=== PATIENT | female | born 1980 | race Caucasian/White ===

== ENCOUNTER 2016-08-27 22:31 | Emergency (ER) | payer OTHER ==
[2016-08-27 22:38] VITALS: BP 114/75; PULSE 102; RESP 18; TEMP 97.6
[2016-08-27] MEDS ORDERED: KETOROLAC 60 MG/2 ML VIAL IM STA (22:45)
--- NOTE | 2016-08-27 22:48 | ED ---
General Adult HPI - General Chief complaint: Fall Stated complaint: fall Time Seen by Provider: 08/27/16 22:35 Source: patient, RN notes reviewed Mode of arrival: ambulatory Limitations: no limitations - History of Present Illness Initial comments: This is a 36-year-old female who comes in the ER stating that she tripped on the sidewalk hurt both her knees both elbows and her lower back. Patient denies any head injury. Patient denies any neck injury. Patient denies numbness weakness. Patient denies any loss of consciousness. Patient states she is not having any symptoms prior to tripping. Patient states she is able to move both of her elbows they just hurt a little bit where they hit the ground. Patient states she is able to move both knees and again they just hurt where the ground. Patient denies any hip pain. Patient denies any chest pain or abdominal pain. Patient asked pain is in the lower region. Patient states she was able to ambulate although at home and ambulate into the emergency department. - Related Data Home Medications Medication Instructions Recorded Confirmed traZODone HCL [Desyrel] 25 mg PO HS 03/03/16 08/27/16 Amitriptyline HCl [Elavil] 30 mg PO HS 08/27/16 08/27/16 DULoxetine HCL [Cymbalta] 60 mg PO HS 08/27/16 08/27/16 Thyroid,Pork [[place] Thyroid] 60 mg PO HS 08/27/16 08/27/16 Topiramate [Topamax] 25 mg PO TID 08/27/16 08/27/16 Allergies Allergy/AdvReac Type Severity Reaction Status Date / Time baclofen Allergy STOMACH Verified 08/27/16 22:58 PAIN chicken derived Allergy Anaphylaxis Verified 08/27/16 22:38 zonisamide [From Zonegran] Allergy Confusion Verified 08/27/16 22:38 Review of Systems ROS Statement: Those systems with pertinent positive or pertinent negative responses have been documented in the HPI. ROS Other: All systems not noted in ROS Statement are negative. Past Medical History Past Medical History: Fibromyalgia, GERD/Reflux, Hearing Disorder / Deafness, Thyroid Disorder Additional Past Medical History / Comment(s): hypotension, knee pain, MIGRAINES History of Any Multi-Drug Resistant Organisms: None Reported Past Surgical History: Hysterectomy, Orthopedic Surgery, Tubal Ligation Past Psychological History: Anxiety, Bipolar, Depression Smoking Status: Never smoker Past Alcohol Use History: None Reported Past Drug Use History: None Reported General Exam - General Exam Comments Initial Comments: GENERAL: Patient is well-developed and well-nourished. Patient is nontoxic and well- hydrated and is in mild distress. ENT: Neck is soft and supple. No significant lymphadenopathy is noted. Oropharynx is clear. Moist mucous membranes. Neck has full range of motion without eliciting any pain. EYES: The sclera were anicteric and conjunctiva were pink and moist. Extraocular movements were intact and pupils were equal round and reactive to light. Eyelids were unremarkable. PULMONARY: Unlabored respirations. Good breath sounds bilaterally. No audible rales rhonchi or wheezing was noted. CARDIOVASCULAR: There is a regular rate and rhythm without any murmurs gallops or rubs. ABDOMEN: Soft and nontender with normal bowel sounds. No palpable organomegaly was noted. There is no palpable pulsatile mass. SKIN: Patient has skin abrasions that are very superficial on both elbows and both knees. NEUROLOGIC: Patient is alert and oriented x3. Cranial nerves II through XII are grossly intact. Motor and sensory are also intact. Normal speech, volume and content. Symmetrical smile. MUSCULOSKELETAL: Normal extremities with adequate strength and full range of motion. Patient's lower back is mildly tender just lateral to the midline. PSYCHIATRIC: Normal psychiatric evaluation. Limitations: no limitations Course Vital Signs 08/27/16 22:36 Temperature 97.6 F Pulse Rate 102 H Respiratory 18 Rate Blood Pressure 114/75 O2 Sat by Pulse 98 Oximetry Medical Decision Making - Medical Decision Making Lumbosacral spine is normal. Disposition Clinical Impression: Multiple contusions, Lumbosacral strain Disposition: HOME SELF-CARE Condition: Good Instructions: Acute Low Back Pain (ED) Additional Instructions: Patient should take Motrin or Aleve for pain. Referrals: Zachariah Ruano DO [Primary Care Provider] - 1-2 days Time of Disposition: 23:05
--- NOTE | 2016-08-27 23:48 | XR ---
EXAMINATION TYPE: XR lumbosacral spine min 4V DATE OF EXAM: 08/27/2016 11:03 PM CLINICAL HISTORY: Lower back pain history of fall tonight history of DDD. TECHNIQUE: Frontal, lateral, and oblique images of the lumbar spine are obtained. COMPARISON: 04/27/2016 FINDINGS: There is minor dextroscoliosis in the lumbar spine. The alignment of vertebral bodies and body heights and disc spaces are grossly normal. Minor wedge co mpression deformity of T12 vertebral body is most likely old. No definite acute fracture is noted in the lumbar spine. Minor multilevel degenerative changes are suggested in the lumbar spine with endpla te spondylosis. The overlying soft tissue appears unremarkable. Mild facet joint arthrosis is suggest ed. IMPRESSION: 1. No acute fracture in the lumbar spine. 2. Minor degenerative changes. 3. No significant interval change.
== END 2016-08-27 23:15 | disposition home or self-care (01) ==
LOC: EC 22:31
DX: S39.012A Strain of muscle, fascia and tendon of lower back, initial encounter (principal); T14.8 Other injury of unspecified body region; M25.562 Pain in left knee; M25.561 Pain in right knee; M25.522 Pain in left elbow; M25.521 Pain in right elbow; W01.0XXA Fall on same level from slipping, tripping and stumbling without subsequent striking against object, initial encounter; Y92.480 Sidewalk as the place of occurrence of the external cause; E07.9 Disorder of thyroid, unspecified; M79.7 Fibromyalgia; G43.909 Migraine, unspecified, not intractable, without status migrainosus; F31.9 Bipolar disorder, unspecified; F41.9 Anxiety disorder, unspecified; Z79.899 Other long term (current) drug therapy; Z88.8 Allergy status to other drugs, medicaments and biological substances
CPT/HCPCS: 72110; 99283; 96372; J1885

== ENCOUNTER → 2016-09-01 | Outpatient (CLI) | payer OTHER ==
--- NOTE | 2016-09-02 09:02 | XR ---
EXAMINATION TYPE: XR mandible limited <4V DATE OF EXAM: 09/02/2016 6:34 AM COMPARISON: NONE HISTORY: Jaw pain TECHNIQUE: 4 views of the mandible are submitted. FINDINGS: Osseous structures are grossly intact. No acute displaced fracture seen. Limited evaluation of the TMJ. Visualized calvarium intact. IMPRESSION: 1. No Definite acute process. If symptoms persist follow-up CT scan recommended.
== END | disposition home or self-care (01) ==
LOC: RADXRYALE 14:25
PROVIDERS: ATTEND Physician Assistant Medical
DX: R68.84 Jaw pain (principal)
CPT/HCPCS: 70100

== ENCOUNTER 2016-11-14 02:55 | Emergency (ER) | payer OTHER ==
[2016-11-14 03:04] VITALS: RESP 18; TEMP 98
[2016-11-14] MEDS ORDERED: diphenhydrAMINE 50 MG/ML 1 ML VIAL IVP STA (03:22)
[2016-11-14] MEDS ORDERED: SODIUM CHLORIDE 0.9% 1,000 ML IV ONE (03:22)
[2016-11-14] MEDS ORDERED: METOCLOPRAMIDE 5 MG/ML 2 ML VIAL IVP STA ×2 (03:22→05:33)
[2016-11-14] MEDS ORDERED: KETOROLAC 30 MG/ML 1 ML VIAL IVP STA ×2 (03:23→04:47)
--- NOTE | 2016-11-14 03:52 | ED ---
Headache HPI - General Source: RN notes reviewed Mode of arrival: ambulatory Limitations: no limitations <Radha Abbott - Last Filed: 11/14/16 04:47> <Angus Lamb - Last Filed: 11/14/16 06:30> - General Chief Complaint: Headache Stated Complaint: migraine Time Seen by Provider: 11/14/16 03:07 - History of Present Illness Initial Comments: Patient is a 36-year-old female presents emergency room for evaluation of migraine headache. Patient states she has a history of migraine headaches. Patient states she has chronic neck and back pain. Patient states over the past 3 days she has been taking ibuprofen, Topamax, Tylenol, caffeine. Patient states these are not relieving her symptoms. Patient states she still continuing to have a migraine headache. Patient denies changes in vision. Patient denies ear pain or ringing in her years. Patient does admit to photophobia and phonophobia. Patient denies worsening neck pain. Patient denies neck stiffness. Patient denies fevers. Patient does states she is nauseous. Patient denies any numbness or tingling in her fingers and toes. Patient states this feels like her normal migraines. (Radha Abbott) - Related Data Home Medications Medication Instructions Recorded Confirmed traZODone HCL [Desyrel] 25 mg PO HS 03/03/16 11/14/16 Amitriptyline HCl [Elavil] 30 mg PO HS 08/27/16 11/14/16 DULoxetine HCL [Cymbalta] 60 mg PO HS 08/27/16 11/14/16 Thyroid,Pork [[place] Thyroid] 60 mg PO HS 08/27/16 11/14/16 Topiramate [Topamax] 25 mg PO TID 08/27/16 11/14/16 Allergies Allergy/AdvReac Type Severity Reaction Status Date / Time baclofen Allergy STOMACH Verified 11/14/16 03:04 PAIN chicken derived Allergy Anaphylaxis Verified 11/14/16 03:04 zonisamide [From Zonegran] Allergy Confusion Verified 11/14/16 03:04 Review of Systems ROS Other: All systems not noted in ROS Statement are negative. <Radha Abbott - Last Filed: 11/14/16 04:47> ROS Other: All systems not noted in ROS Statement are negative. <Angus Lamb - Last Filed: 11/14/16 06:30> ROS Statement: Those systems with pertinent positive or pertinent negative responses have been documented in the HPI. Past Medical History Past Medical History: Fibromyalgia, GERD/Reflux, Hearing Disorder / Deafness, Thyroid Disorder Additional Past Medical History / Comment(s): hypotension, knee pain, MIGRAINES History of Any Multi-Drug Resistant Organisms: None Reported Past Surgical History: Hysterectomy, Orthopedic Surgery, Tubal Ligation Past Psychological History: Anxiety, Bipolar, Depression Smoking Status: Never smoker Past Alcohol Use History: None Reported Past Drug Use History: None Reported <Radha Abbott - Last Filed: 11/14/16 04:47> General Exam Limitations: no limitations General appearance: alert, in no apparent distress Head exam: Present: atraumatic, normocephalic, normal inspection Eye exam: Present: normal appearance, PERRL, EOMI Pupils: Present: normal accommodation ENT exam: Present: normal exam Neck exam: Present: normal inspection Respiratory exam: Absent: respiratory distress Cardiovascular Exam: Present: regular rate, normal rhythm, normal heart sounds Extremities exam: Present: normal inspection Back exam: Present: normal inspection Neurological exam: Present: alert, oriented X3, CN II-XII intact, normal gait Psychiatric exam: Present: normal affect, normal mood Skin exam: Present: warm, dry, intact, normal color. Absent: rash <Radha Abbott - Last Filed: 11/14/16 04:47> <Angus Lamb - Last Filed: 11/14/16 06:30> - General Exam Comments Initial Comments: Laying in exam room, all lights off, sunglasses on, no acute distress. (Radha Abbott) Course <Radha Abbott - Last Filed: 11/14/16 04:47> <Angus Lamb - Last Filed: 11/14/16 06:30> Vital Signs 11/14/16 11/14/16 03:01 05:42 Temperature 98.0 F Pulse Rate 91 67 Respiratory 18 18 Rate Blood Pressure 113/78 108/58 O2 Sat by Pulse 95 98 Oximetry - Reevaluation(s) Reevaluation #1: 11/14/16 05:34 Patient states her pain is down to about a 4/10 in severity (Angus Lamb) Reevaluation #2: 11/14/16 06:29 The patient is finally feeling much improved she will be discharged she is waiting for her to pick her up after he gets out of work at 7:30. (Angus Lamb) Medical Decision Making <Radha Abbott - Last Filed: 11/14/16 04:47> <Angus Lamb - Last Filed: 11/14/16 06:30> - Medical Decision Making Patient is a 36-year-old female presents emergency room. Elevation of migraine headaches. Patient has a history of migraine headaches. Patient given fluids, Toradol, Reglan and Benadryl. Patient reevaluated after 30 minutes and still complaining of mild headache. Patient given another dose of Toradol. Case discussed and passed on to Dr. Lamb at 4:45 AM. (Radha Abbott) Disposition <Radha Abbott - Last Filed: 11/14/16 04:47> <Angus Lamb - Last Filed: 11/14/16 06:30> Clinical Impression: Migraine Disposition: HOME SELF-CARE Condition: Good Instructions: Acute Headache (ED)
[2016-11-14] MEDS ORDERED: HYDROmorphone 1 MG/ML 1 ML SYRINGE IVP STA (05:33)
[2016-11-14 07:57] VITALS: BP 110/65; PULSE 79
== END 2016-11-14 07:55 | disposition home or self-care (01) ==
LOC: EC 02:55
DX: G43.909 Migraine, unspecified, not intractable, without status migrainosus (principal); E07.9 Disorder of thyroid, unspecified; F31.9 Bipolar disorder, unspecified; F41.9 Anxiety disorder, unspecified; H91.90 Unspecified hearing loss, unspecified ear; Z79.899 Other long term (current) drug therapy; Z91.018 Allergy to other foods; Z88.8 Allergy status to other drugs, medicaments and biological substances
CPT/HCPCS: 99283; 96374; 96375 ×3; 96376 ×2; 96361; J1200; J2765; J1885; J1170

== ENCOUNTER 2016-11-23 18:01 | Emergency (ER) | payer OTHER ==
[2016-11-23] MEDS ORDERED: diphenhydrAMINE 50 MG CAP PO STA (18:16)
[2016-11-23] MEDS ORDERED: PROCHLORPERAZINE 5 MG TAB PO STA (18:16)
[2016-11-23] MEDS ORDERED: HYDROmorphone 2 MG/ML 1 ML SYRINGE IM STA ×2 (18:16→19:57)
[2016-11-23] MEDS ORDERED: IBUPROFEN 800 MG TAB PO STA (18:16)
--- NOTE | 2016-11-23 18:30 | ED ---
General Adult HPI - General Chief complaint: Headache Stated complaint: migraine Time Seen by Provider: 11/23/16 18:13 Source: patient, RN notes reviewed, old records reviewed Mode of arrival: wheelchair Limitations: no limitations - History of Present Illness Initial comments: This is a 36-year-old female here for evaluation of headache and chronic migraine. Patient has history of headache and migraine. Patient states his headache is not improving at home despite taking her headache medications. No neurological complaints. Headache is her fzx-bo-[id number]-mill migraine headache. No nausea or vomiting. No fevers. No trauma - Related Data Home Medications Medication Instructions Recorded Confirmed traZODone HCL [Desyrel] 25 mg PO HS 03/03/16 11/23/16 Amitriptyline HCl [Elavil] 10 mg PO TID 08/27/16 11/23/16 DULoxetine HCL [Cymbalta] 60 mg PO DAILY 08/27/16 11/23/16 Thyroid,Pork [[place] Thyroid] 60 mg PO DAILY 08/27/16 11/23/16 Topiramate [Topamax] 25 mg PO TID 08/27/16 11/23/16 Aspirin/Acetaminophen/Caffeine 1 - 2 tab PO DAILY PRN 11/23/16 11/23/16 [Excedrin Migraine Caplet] Melatonin 3 mg PO HS PRN 11/23/16 11/23/16 Multivitamins, Thera [Multivitamin 1 tab PO DAILY 11/23/16 11/23/16 (formulary)] Allergies Allergy/AdvReac Type Severity Reaction Status Date / Time baclofen Allergy STOMACH Verified 11/23/16 18:17 PAIN chicken derived Allergy Anaphylaxis Verified 11/23/16 18:17 zonisamide [From Zonegran] Allergy Confusion Verified 11/23/16 18:17 Review of Systems ROS Statement: Those systems with pertinent positive or pertinent negative responses have been documented in the HPI. ROS Other: All systems not noted in ROS Statement are negative. Past Medical History Past Medical History: Fibromyalgia, Hearing Disorder / Deafness, Thyroid Disorder Additional Past Medical History / Comment(s): hypotension, knee pain, MIGRAINES History of Any Multi-Drug Resistant Organisms: None Reported Past Surgical History: Hysterectomy, Orthopedic Surgery, Tubal Ligation Past Psychological History: Anxiety, Bipolar, Depression Smoking Status: Never smoker Past Alcohol Use History: None Reported Past Drug Use History: None Reported General Exam Limitations: no limitations General appearance: alert, in no apparent distress Head exam: Present: atraumatic, normocephalic, normal inspection Eye exam: Present: normal appearance, PERRL, EOMI. Absent: scleral icterus, conjunctival injection, periorbital swelling ENT exam: Present: normal exam, mucous membranes moist Neck exam: Present: normal inspection. Absent: tenderness, meningismus, lymphadenopathy Respiratory exam: Present: normal lung sounds bilaterally. Absent: respiratory distress, wheezes, rales, rhonchi, stridor Cardiovascular Exam: Present: regular rate, normal rhythm, normal heart sounds. Absent: systolic murmur, diastolic murmur, rubs, gallop, clicks GI/Abdominal exam: Present: soft, normal bowel sounds. Absent: distended, tenderness, guarding, rebound, rigid Extremities exam: Present: normal inspection, full ROM, normal capillary refill. Absent: tenderness, pedal edema, joint swelling, calf tenderness Back exam: Present: normal inspection Neurological exam: Present: alert, oriented X3, CN II-XII intact Psychiatric exam: Present: normal affect, normal mood Skin exam: Present: warm, dry, intact, normal color. Absent: rash Course Vital Signs 11/23/16 11/23/16 18:05 20:20 Temperature 99.0 F 98.0 F Pulse Rate 79 91 Respiratory 16 18 Rate Blood Pressure 131/60 121/84 O2 Sat by Pulse 96 96 Oximetry Medical Decision Making - Medical Decision Making 36 female here for evaluation of chronic minor, headache and this time is resolved and patient is okay for discharge home Disposition Clinical Impression: Migraine Disposition: HOME SELF-CARE Condition: Good Instructions: Acute Headache (ED) Referrals: Zachariah Ruano DO [Primary Care Provider] - 1-2 days
[2016-11-23 20:21] VITALS: BP 121/84; PULSE 91; RESP 18; TEMP 98
== END 2016-11-23 20:45 | disposition home or self-care (01) ==
LOC: EC 18:01
DX: G43.909 Migraine, unspecified, not intractable, without status migrainosus (principal); Z79.899 Other long term (current) drug therapy; M79.7 Fibromyalgia; H91.90 Unspecified hearing loss, unspecified ear; E07.9 Disorder of thyroid, unspecified; I95.9 Hypotension, unspecified; F32.9 Major depressive disorder, single episode, unspecified; F41.9 Anxiety disorder, unspecified; Z88.1 Allergy status to other antibiotic agents; Z91.018 Allergy to other foods; Z88.8 Allergy status to other drugs, medicaments and biological substances
CPT/HCPCS: 96372; 99284; S0183; J1170

== ENCOUNTER 2016-11-27 10:59 | Emergency (ER) | payer OTHER ==
[2016-11-27] MEDS ORDERED: METOCLOPRAMIDE 5 MG/ML 2 ML VIAL IM STA (11:39)
[2016-11-27] MEDS ORDERED: KETOROLAC 60 MG/2 ML VIAL IM STA (11:39)
[2016-11-27] MEDS ORDERED: MORPHINE SULFATE 10 MG/ML SYRINGE IM STA (11:47)
--- NOTE | 2016-11-27 11:50 | ED ---
General Adult HPI - General Chief complaint: Headache Stated complaint: MIGRAINE Time Seen by Provider: 11/27/16 11:21 Source: patient, RN notes reviewed Mode of arrival: ambulatory Limitations: no limitations - History of Present Illness Initial comments: Patient is a pleasant 36-year-old female presenting to the emergency department complaining of headache. Symptoms started yesterday and have progressively worsened since that time. Discomfort is turned to become severe rated 8 or 9/ 10. Patient does have similar headaches once or twice per week. Patient has had similar headaches since age 15. Patient usually worse in the spring time and patient does question if she has an ALLERGY component. Patient does take Flonase. Patient did receive a Toradol injection yesterday from her primary care physician without much improvement of symptoms. No confusion. No weakness. Patient does have nausea and photophobia. Headache is frontal and similar to previous headaches. Patient has had at least one computed tomography scan previously. Patient is unclear whether or not she may have had MRIs. - Related Data Home Medications Medication Instructions Recorded Confirmed traZODone HCL [Desyrel] 25 mg PO HS 03/03/16 11/23/16 Amitriptyline HCl [Elavil] 10 mg PO TID 08/27/16 11/23/16 DULoxetine HCL [Cymbalta] 60 mg PO DAILY 08/27/16 11/23/16 Thyroid,Pork [[place] Thyroid] 60 mg PO DAILY 08/27/16 11/23/16 Topiramate [Topamax] 25 mg PO TID 08/27/16 11/23/16 Aspirin/Acetaminophen/Caffeine 1 - 2 tab PO DAILY PRN 11/23/16 11/23/16 [Excedrin Migraine Caplet] Melatonin 3 mg PO HS PRN 11/23/16 11/23/16 Multivitamins, Thera [Multivitamin 1 tab PO DAILY 11/23/16 11/23/16 (formulary)] Allergies Allergy/AdvReac Type Severity Reaction Status Date / Time baclofen Allergy STOMACH Verified 11/23/16 18:17 PAIN chicken derived Allergy Anaphylaxis Verified 11/23/16 18:17 zonisamide [From Zonegran] Allergy Confusion Verified 11/23/16 18:17 Review of Systems ROS Statement: Those systems with pertinent positive or pertinent negative responses have been documented in the HPI. ROS Other: All systems not noted in ROS Statement are negative. Constitutional: Denies: fever, chills Eyes: Denies: eye pain ENT: Denies: ear pain Respiratory: Denies: cough Cardiovascular: Denies: chest pain Endocrine: Denies: fatigue Gastrointestinal: Reports: nausea. Denies: abdominal pain Genitourinary: Denies: urgency Musculoskeletal: Denies: back pain Skin: Denies: rash Neurological: Reports: headache. Denies: weakness Past Medical History Past Medical History: Fibromyalgia, Hearing Disorder / Deafness, Thyroid Disorder Additional Past Medical History / Comment(s): hypotension, knee pain, MIGRAINES History of Any Multi-Drug Resistant Organisms: None Reported Past Surgical History: Hysterectomy, Orthopedic Surgery, Tubal Ligation Past Psychological History: Anxiety, Bipolar, Depression Smoking Status: Never smoker Past Alcohol Use History: None Reported Past Drug Use History: None Reported General Exam Limitations: no limitations General appearance: alert, in no apparent distress Head exam: Present: atraumatic Eye exam: Present: normal appearance, PERRL, EOMI. Absent: nystagmus ENT exam: Present: normal oropharynx Neck exam: Present: normal inspection. Absent: tenderness, meningismus Respiratory exam: Present: normal lung sounds bilaterally Cardiovascular Exam: Present: regular rate, normal rhythm GI/Abdominal exam: Present: soft. Absent: tenderness Extremities exam: Present: normal inspection Neurological exam: Present: alert Expanded Speech: Present: fluid speech Cranial nerves: EOM's Intact: Normal, Facial Sensation: Normal Sensory exam: Upper Extremity Light Touch: Normal, Lower Extremity Light Touch: Normal Motor strength exam: RUE: 5, LUE: 5, RLE: 5, LLE: 5 Eye Response: (4) open spontaneously Motor Response: (6) obeys commands Verbal Response: (5) oriented Psychiatric exam: Present: normal affect, normal mood Skin exam: Present: normal color Course Vital Signs 11/27/16 11:07 Temperature 98.4 F Pulse Rate 89 Respiratory 20 Rate Blood Pressure 116/88 O2 Sat by Pulse 97 Oximetry Disposition Clinical Impression: Headache Disposition: HOME SELF-CARE Condition: Stable Instructions: Acute Headache (ED) Additional Instructions: Please follow-up with your doctor in the next day or 2 for recheck. Return for fever, confusion, weakness, worsening or change in symptoms or other concerns. Referrals: Zachariah Ruano DO [Primary Care Provider] - 1-2 days Time of Disposition: :50
[2016-11-27 12:43] VITALS: BP 120/82; PULSE 87; RESP 18; TEMP 98
== END 2016-11-27 12:43 | disposition home or self-care (01) ==
LOC: EC 10:59
DX: R51 Headache (principal); R11.0 Nausea; H53.149 Visual discomfort, unspecified; M79.7 Fibromyalgia; F41.9 Anxiety disorder, unspecified; E07.9 Disorder of thyroid, unspecified; F32.9 Major depressive disorder, single episode, unspecified; Z79.899 Other long term (current) drug therapy; Z88.8 Allergy status to other drugs, medicaments and biological substances; Z91.09 Other allergy status, other than to drugs and biological substances; Z86.69 Personal history of other diseases of the nervous system and sense organs
CPT/HCPCS: 99283; 96372 ×3; J2765; J2270; J1885

== ENCOUNTER 2016-12-03 10:15 | Emergency (ER) | payer OTHER ==
[2016-12-03 10:41] VITALS: BP 132/80
[2016-12-03] MEDS ORDERED: KETOROLAC 60 MG/2 ML VIAL IM STA (11:10)
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
[2016-12-03 11:23] VITALS: PULSE 73; RESP 16; TEMP 98.2
== END 2016-12-03 11:26 | disposition home or self-care (01) ==
LOC: EC 10:15
DX: S30.0XXA Contusion of lower back and pelvis, initial encounter (principal); E03.9 Hypothyroidism, unspecified; F31.9 Bipolar disorder, unspecified; F41.9 Anxiety disorder, unspecified; Z86.69 Personal history of other diseases of the nervous system and sense organs; Z79.899 Other long term (current) drug therapy; Z91.018 Allergy to other foods; Z88.8 Allergy status to other drugs, medicaments and biological substances; W50.1XXA Accidental kick by another person, initial encounter
CPT/HCPCS: 99283; 96372; J1885

== ENCOUNTER 2017-01-22 18:16 | Emergency (ER) | payer OTHER ==
[2017-01-22 18:21] VITALS: TEMP 97.7
--- NOTE | 2017-01-22 19:26 | ED ---
Upper Extremity HPI - General Chief Complaint: Extremity Injury, Upper Stated Complaint: left wrist and elbow injury Time Seen by Provider: 01/22/17 18:37 Source: patient Mode of arrival: wheelchair Limitations: no limitations - History of Present Illness Initial Comments: Patient is a 36-year-old female with medical history significant for fibromyalgia presenting to the emergency department with complaints of left wrist pain. Patient states she was moving a mattress off a metal bed frame 3 days ago when she injured her left wrist on the bed frame. Patient is currently complaining of a 9 out of 10 pain, described as aching and sharp, relieved with rest, exacerbated with movement. A enriquez states that she has shooting pains radiating up her left forearm to elbow. Patient reports previous history of fracture to left wrist and dislocated humerus in the past. Patient states she's tried a splint and Adi wrap at home with minimal relief. Patient states she is taking prescription pain medications. MD Complaint: Injury to:: left, wrist Onset/Timin -: days(s) Other Injuries: none Place: home Severity scale (1-10): 9 Improves With: rest Worsens With: movement of extremity Context: direct blow (Patient states she injured her left wrist on a metal bed frame trying to pull off the mattress) Treatments Prior to Arrival: splint - Related Data Home Medications Medication Instructions Recorded Confirmed traZODone HCL [Desyrel] 25 mg PO HS 03/03/16 01/22/17 Amitriptyline HCl [Elavil] 30 mg PO HS 08/27/16 01/22/17 DULoxetine HCL [Cymbalta] 60 mg PO DAILY 08/27/16 01/22/17 Thyroid,Pork [[employer] Thyroid] 60 mg PO DAILY 08/27/16 01/22/17 Topiramate [Topamax] 25 mg PO TID 08/27/16 01/22/17 Aspirin/Acetaminophen/Caffeine 1 - 2 tab PO DAILY PRN 11/23/16 01/22/17 [Excedrin Migraine Caplet] Melatonin 3 mg PO HS PRN 11/23/16 01/22/17 Multivitamins, Thera [Multivitamin 1 tab PO DAILY 11/23/16 01/22/17 (formulary)] Celecoxib [Celecoxib] 200 mg PO DAILY 12/03/16 01/22/17 Allergies Allergy/AdvReac Type Severity Reaction Status Date / Time baclofen Allergy STOMACH Verified 01/22/17 18:57 PAIN chicken derived Allergy Anaphylaxis Verified 01/22/17 18:57 zonisamide [From Zonegran] Allergy Confusion Verified 01/22/17 18:57 Review of Systems ROS Statement: Those systems with pertinent positive or pertinent negative responses have been documented in the HPI. ROS Other: All systems not noted in ROS Statement are negative. Past Medical History Past Medical History: Fibromyalgia, Hearing Disorder / Deafness, Thyroid Disorder Additional Past Medical History / Comment(s): hypotension, knee pain, MIGRAINES History of Any Multi-Drug Resistant Organisms: None Reported Past Surgical History: Hysterectomy, Orthopedic Surgery, Tubal Ligation Past Psychological History: Anxiety, Depression Smoking Status: Never smoker Past Alcohol Use History: None Reported Past Drug Use History: None Reported General Exam Limitations: no limitations General appearance: alert, in no apparent distress Head exam: Present: atraumatic, normocephalic, normal inspection Eye exam: Present: normal appearance. Absent: scleral icterus, conjunctival injection, periorbital swelling, periorbital tenderness ENT exam: Present: normal exam, mucous membranes moist, normal external ear exam Neck exam: Present: normal inspection, full ROM. Absent: tenderness, lymphadenopathy Respiratory exam: Present: normal lung sounds bilaterally. Absent: respiratory distress, wheezes, rales, rhonchi, stridor Cardiovascular Exam: Present: regular rate, normal rhythm, tachycardia, normal heart sounds. Absent: systolic murmur GI/Abdominal exam: Present: soft, normal bowel sounds. Absent: tenderness Left Shoulder Exam: Present: normal inspection, full ROM. Absent: tenderness, swelling Upper Arm exam: Present: normal inspection, full ROM. Absent: tenderness, swelling Elbow exam: Present: normal inspection, full ROM. Absent: tenderness, swelling Forearm Wrist exam: Present: normal inspection, full ROM, tenderness ( Tenderness to dorsal aspect of left forearm over both radial and ulnar areas). Absent: swelling, ecchymosis, deformity, dislocation Hand Wrist exam: Present: full ROM, tenderness, ecchymosis (Ecchymosis to left wrist). Absent: swelling, deformity Neuro motor exam: Present: wrist extension intact, thumb opposition intact, thumb IP flexion intact, thumb adduction intact, fingers 2-5 abduction intact Neurosensory exam: Present: radial nerve intact, ulnar nerve intact, median nerve intact Vascular: Present: normal capillary refill, radial pulse, brachial pulse, ulnar pulse. Absent: vascular compromise Neurological exam: Present: alert, oriented X3, other (No focal deficits noted) Psychiatric exam: Present: normal affect, normal mood Course Vital Signs 01/22/17 18:18 Temperature 97.7 F Pulse Rate 104 H Respiratory 18 Rate Blood Pressure 119/72 O2 Sat by Pulse 99 Oximetry Medical Decision Making - Medical Decision Making Contusion of left wrist. X-ray of left wrist and left forearm with no evidence of fracture or dislocation. Patient instructed to continue Tylenol and Motrin for pain. Follow-up with primary care physician as directed. Patient instructed to follow-up with orthopedic service with continued persistent pain. Patient agrees to treatment plan. Discharge instructions and return parameters reviewed. - Radiology Data Radiology results: report reviewed X-ray left wrist: No fracture or dislocation. Bones and joints and soft tissues are unremarkable. X-ray left forearm: Bones and joints and soft tissues are unremarkable. No fracture or malalignment. Disposition Clinical Impression: Contusion of left wrist Disposition: HOME SELF-CARE Condition: Good Instructions: Contusion in Adults (ED) Additional Instructions: Continue Tylenol or Motrin for pain. May continue ice or warm heat for comfort. Follow-up with primary care physician as directed. If left wrist pain persists, follow-up with orthopedic service. Please return to the emergency department with any new or worsening symptoms. Referrals: Zachariah Ruano DO [Primary Care Provider] - 1-2 days Rito Reddy DO [Doctor of Osteopathic Medicine] - 1-2 days (Follow-up in 7-10 days if pain persists.) Time of Disposition: 20:44
--- NOTE | 2017-01-22 19:32 | XR ---
EXAMINATION TYPE: XR wrist complete LT 4V DATE OF EXAM: 01/22/2017 COMPARISON: NONE HISTORY: Pain after trauma TECHNIQUE: AP and lateral and AP oblique images plus a scaphoid view FINDINGS: There is no fracture or dislocation. The bones and joints and soft tissues are unremarkable . IMPRESSION: No acute process.
--- NOTE | 2017-01-22 20:27 | XR ---
EXAMINATION TYPE: XR forearm LT 2V DATE OF EXAM: 01/22/2017 COMPARISON: NONE HISTORY: Pain after trauma TECHNIQUE: AP and lateral FINDINGS: The bones and joints and soft tissues are unremarkable. There is no fracture or malalignmen t. Imaging obtained from the elbow to the wrist IMPRESSION: No acute process.
[2017-01-22 20:53] VITALS: BP 97/53; PULSE 68; RESP 16
== END 2017-01-22 20:53 | disposition home or self-care (01) ==
LOC: EC 18:16
DX: S60.212A Contusion of left wrist, initial encounter (principal); R00.0 Tachycardia, unspecified; M25.522 Pain in left elbow; M79.632 Pain in left forearm; E07.9 Disorder of thyroid, unspecified; F32.9 Major depressive disorder, single episode, unspecified; F41.9 Anxiety disorder, unspecified; Z79.1 Long term (current) use of non-steroidal anti-inflammatories (NSAID); Z79.899 Other long term (current) drug therapy; Z88.8 Allergy status to other drugs, medicaments and biological substances; Z91.018 Allergy to other foods; Z87.39 Personal history of other diseases of the musculoskeletal system and connective tissue; Z86.69 Personal history of other diseases of the nervous system and sense organs; W20.8XXA Other cause of strike by thrown, projected or falling object, initial encounter; Y93.89 Activity, other specified
CPT/HCPCS: 99283

== ENCOUNTER 2017-01-23 16:19 | Emergency (ER) | payer OTHER ==
[2017-01-23] MEDS ORDERED: DIPH,PERTUS(ACELL)TETVAC-LF 0.5 ML VIAL IM ONE (16:45)
--- NOTE | 2017-01-23 16:47 | ED ---
General Adult HPI - General Chief complaint: Fall Stated complaint: Fall Time Seen by Provider: 01/23/17 16:36 Source: patient, EMS, RN notes reviewed Mode of arrival: EMS Limitations: no limitations - History of Present Illness Initial comments: Patient is a pleasant 36-year-old female presenting to the emergency Department with left toe pain. Patient did have a trip and fall a couple hours ago. Patient has previously fallen in the same location. Patient also had a fall last week. Patient unclear when last tetanus was was. Patient complains of discomfort of the left distal toe. No other area of injury. No head injury or loss of consciousness. No neck or back pain. No abdominal pain. - Related Data Home Medications Medication Instructions Recorded Confirmed traZODone HCL [Desyrel] 25 mg PO HS 03/03/16 01/23/17 Amitriptyline HCl [Elavil] 30 mg PO HS 08/27/16 01/23/17 DULoxetine HCL [Cymbalta] 60 mg PO DAILY 08/27/16 01/23/17 Thyroid,Pork [[place] Thyroid] 60 mg PO DAILY 08/27/16 01/23/17 Topiramate [Topamax] 25 mg PO TID 08/27/16 01/23/17 Aspirin/Acetaminophen/Caffeine 1 - 2 tab PO DAILY PRN 11/23/16 01/23/17 [Excedrin Migraine Caplet] Melatonin 3 mg PO HS PRN 11/23/16 01/23/17 Multivitamins, Thera [Multivitamin 1 tab PO DAILY 11/23/16 01/23/17 (formulary)] Celecoxib [Celecoxib] 200 mg PO DAILY 12/03/16 01/23/17 Allergies Allergy/AdvReac Type Severity Reaction Status Date / Time baclofen Allergy STOMACH Verified 01/23/17 16:34 PAIN chicken derived Allergy Anaphylaxis Verified 01/23/17 16:34 zonisamide [From Zonegran] Allergy Confusion Verified 01/23/17 16:34 Review of Systems ROS Statement: Those systems with pertinent positive or pertinent negative responses have been documented in the HPI. ROS Other: All systems not noted in ROS Statement are negative. Constitutional: Denies: fever Eyes: Denies: eye pain ENT: Denies: ear pain Respiratory: Denies: cough Cardiovascular: Denies: chest pain Endocrine: Denies: fatigue Gastrointestinal: Denies: abdominal pain Genitourinary: Denies: dysuria Musculoskeletal: Denies: back pain Skin: Denies: rash Neurological: Denies: weakness Past Medical History Past Medical History: Fibromyalgia, Hearing Disorder / Deafness, Thyroid Disorder Additional Past Medical History / Comment(s): hypotension, knee pain, MIGRAINES History of Any Multi-Drug Resistant Organisms: None Reported Past Surgical History: Hysterectomy, Orthopedic Surgery, Tubal Ligation Past Psychological History: Anxiety, Depression Smoking Status: Never smoker Past Alcohol Use History: None Reported Past Drug Use History: None Reported General Exam Limitations: no limitations General appearance: alert, in no apparent distress Head exam: Present: atraumatic Eye exam: Present: normal appearance, PERRL ENT exam: Present: normal oropharynx Neck exam: Present: normal inspection. Absent: tenderness Respiratory exam: Present: normal lung sounds bilaterally Cardiovascular Exam: Present: regular rate, normal rhythm GI/Abdominal exam: Present: soft. Absent: tenderness Extremities exam: Present: tenderness (Left distal toe. Sensation is intact. Patient is able to move toe. Cap refill less than 2 seconds.) Neurological exam: Present: alert Psychiatric exam: Present: normal affect, normal mood Skin exam: Present: abrasion (Left hand) Course Vital Signs 01/23/17 16:20 Temperature 99 F Pulse Rate 53 L Respiratory 16 Rate Blood Pressure 116/66 O2 Sat by Pulse 100 Oximetry Medical Decision Making - Medical Decision Making Patient reexamined and updated. - Radiology Data Radiology results: image reviewed (Left foot x-ray shows no acute process) Disposition Clinical Impression: Toe injury Disposition: HOME SELF-CARE Condition: Stable Instructions: Foot Contusion (ED) Additional Instructions: Please follow-up with primary care physician next week. Ice to affected area. Used postoperative shoe. [id number] Motrin as needed. Return for increased pain, swelling, redness, fever, worsening symptoms or other concerns. Referrals: Zachariah Ruano DO [Primary Care Provider] - 1-2 days Time of Disposition: 17:29
--- NOTE | 2017-01-23 17:03 | XR ---
EXAMINATION TYPE: XR foot complete LT DATE OF EXAM: 01/23/2017 COMPARISON: NONE HISTORY: Pain fall TECHNIQUE: Three-view left foot FINDINGS: Mild hallux valgus deformity is present. Joint spaces are preserved. No acute fractures are evident. Soft tissues are normal. Follow-up exam can be performed 7-10 days from acute trauma for continued pain. IMPRESSION: 1. No acute osseous abnormality.
[2017-01-23 17:43] VITALS: BP 130/85; PULSE 87; RESP 18; TEMP 98.9
== END 2017-01-23 17:42 | disposition home or self-care (01) ==
LOC: EC 16:19
DX: S60.512A Abrasion of left hand, initial encounter (principal); S99.922A Unspecified injury of left foot, initial encounter; M79.7 Fibromyalgia; E07.9 Disorder of thyroid, unspecified; F32.9 Major depressive disorder, single episode, unspecified; F41.9 Anxiety disorder, unspecified; Z79.1 Long term (current) use of non-steroidal anti-inflammatories (NSAID); Z79.899 Other long term (current) drug therapy; Z88.8 Allergy status to other drugs, medicaments and biological substances; Z91.018 Allergy to other foods; Z87.39 Personal history of other diseases of the musculoskeletal system and connective tissue; Z86.69 Personal history of other diseases of the nervous system and sense organs; Z23 Encounter for immunization; W01.0XXA Fall on same level from slipping, tripping and stumbling without subsequent striking against object, initial encounter; Y93.02 Activity, running
CPT/HCPCS: 90471; 90715; 99284

== ENCOUNTER 2017-03-07 14:58 | Emergency (ER) | payer OTHER ==
--- NOTE | 2017-03-07 15:49 | ED ---
General Adult HPI - General Chief complaint: Recheck/Abnormal Lab/Rx Stated complaint: Swelling ankle/feet Time Seen by Provider: 03/07/17 15:25 Source: patient, RN notes reviewed Mode of arrival: wheelchair Limitations: no limitations - History of Present Illness Initial comments: Patient 37-year-old female who presents emergency room today with a chief complaint of bilateral leg swelling and also some swelling to her hands that she 's noticed over the last 3-4 days. Patient states she has been off some of her medications. She states she does not have insurance and is not taking her thyroid medication along with medication for fibromyalgia. She states that she has noticed some swelling over the last few days. She states otherwise she has been feeling well. States she has been more active lately as well. She denies any other complaints or associated symptoms. Patient denies any recent fever, chills, shortness of breath, chest pain, back pain, abdominal pain, nausea or vomiting, numbness or tingling, dysuria or hematuria, constipation or diarrhea, headaches or visual changes, or any other complaints. - Related Data Previous Rx's Medication Instructions Recorded Thyroid,Pork [[place] Thyroid] 60 mg PO DAILY #30 tab 03/07/17 Allergies Allergy/AdvReac Type Severity Reaction Status Date / Time baclofen Allergy STOMACH Verified 03/07/17 15:38 PAIN chicken derived Allergy Anaphylaxis Verified 03/07/17 15:38 zonisamide [From Zonegran] Allergy Confusion Verified 03/07/17 15:38 Review of Systems ROS Statement: Those systems with pertinent positive or pertinent negative responses have been documented in the HPI. ROS Other: All systems not noted in ROS Statement are negative. Past Medical History Past Medical History: Fibromyalgia, Hearing Disorder / Deafness, Thyroid Disorder Additional Past Medical History / Comment(s): knee pain, MIGRAINES back pain hypotension History of Any Multi-Drug Resistant Organisms: None Reported Past Surgical History: Hysterectomy, Orthopedic Surgery, Tubal Ligation Past Psychological History: Anxiety, Depression Smoking Status: Never smoker Past Alcohol Use History: None Reported Past Drug Use History: None Reported General Exam - General Exam Comments Initial Comments: General: The patient is awake and alert, in no distress, and does not appear acutely ill. Eye: Pupils are equal, round and reactive to light, extra-ocular movements are intact. No nystagmus. There is normal conjunctiva bilaterally. No signs of icterus. Ears, nose, mouth and throat: There are moist mucous membranes and no oral lesions. Neck: The neck is supple, there is no tenderness or JVD. Cardiovascular: There is a regular rate and rhythm. No murmur, rub or gallop is appreciated. Respiratory: Lungs are clear to auscultation, respirations are non-labored, breath sounds are equal. No wheezes, stridor, rales, or rhonchi. Gastrointestinal: Soft, non-distended, non-tender abdomen without masses or organomegaly noted. There is no rebound or guarding present. No CVA tenderness. Bowel sounds are unremarkable. Musculoskeletal: Normal ROM, no tenderness. Strength 5/5. Sensation intact. Pulses equal bilaterally 2+. 1+ pitting edema. Neurological: A&O x 3. CN II-XII intact, There are no obvious motor or sensory deficits. Coordination appears grossly intact. Speech is normal. Skin: Skin is warm and dry and no rashes or lesions are noted. Psychiatric: Cooperative, appropriate mood & affect, normal judgment. Limitations: no limitations Course Vital Signs 03/07/17 03/07/17 15:19 16:01 Temperature 98.8 F Pulse Rate 79 79 Respiratory 16 18 Rate Blood Pressure 134/84 137/77 O2 Sat by Pulse 99 97 Oximetry Medical Decision Making - Medical Decision Making Case discussed in detail with attending physician Dr. Quezada. Patient reexamined at this time shows no signs of distress. Patient's thyroid level elevated here in the emergency room. We started back on her arm or thyroid given a prescription. She states she is waiting for insurance kicking but knows that it a month's worth of this prescription is $17 at [facility]. Advised patient to begin this medication. The family doctor for. Return for any other concerns. - Lab Data Result diagrams: 03/07/17 15:55 03/07/17 15:55 Lab Results 03/07/17 03/07/17 03/07/17 Range/Units 15:55 15:55 15:55 WBC 6.1 (3.8-10.6) k/uL RBC 4.94 (3.80-5.40) m/uL Hgb 15.4 (11.4-16.0) gm/dL Hct 42.7 (34.0-46.0) % MCV 86.4 (80.0-100.0) fL MCH 31.1 (25.0-35.0) pg MCHC 36.0 (31.0-37.0) g/dL RDW 12.9 (11.5-15.5) % Plt Count 230 (150-450) k/uL Neutrophils % 56 % Lymphocytes % 27 % Monocytes % 6 % Eosinophils % 9 % Basophils % 1 % Neutrophils # 3.4 (1.3-7.7) k/uL Lymphocytes # 1.7 (1.0-4.8) k/uL Monocytes # 0.4 (0-1.0) k/uL Eosinophils # 0.6 (0-0.7) k/uL Basophils # 0.0 (0-0.2) k/uL Sodium 142 (137-145) mmol/L Potassium 3.9 (3.5-5.1) mmol/L Chloride 105 (98-107) mmol/L Carbon Dioxide 27 (22-30) mmol/L Anion Gap 10 mmol/L BUN 11 (7-17) mg/dL Creatinine 0.82 (0.52-1.04) mg/dL Est GFR (MDRD) Af Amer >60 (>60 ml/min/1.73 sqM) Est GFR (MDRD) Non-Af >60 (>60 ml/min/1.73 sqM) Glucose 68 L (74-99) mg/dL Calcium 9.4 (8.4-10.2) mg/dL Total Bilirubin 0.3 (0.2-1.3) mg/dL AST 29 (14-36) U/L ALT 38 (9-52) U/L Alkaline Phosphatase 90 (38-126) U/L NT-Pro-B Natriuret Pep pg/mL Total Protein 7.6 (6.3-8.2) g/dL Albumin 4.3 (3.5-5.0) g/dL TSH 7.650 H (0.465-4.680) mIU/L Urine Color Urine Appearance (Clear) Urine pH (5.0-8.0) Ur Specific [place] (1.001-1.035) Urine Protein (Negative) Urine Glucose (UA) (Negative) Urine Ketones (Negative) Urine Blood (Negative) Urine Nitrite (Negative) Urine Bilirubin (Negative) Urine Urobilinogen (<2.0) mg/dL Ur Leukocyte Esterase (Negative) Urine HCG, Qual (Not Detectd) 03/07/17 03/07/17 03/07/17 Range/Units 15:55 15:55 15:55 WBC (3.8-10.6) k/uL RBC (3.80-5.40) m/uL Hgb (11.4-16.0) gm/dL Hct (34.0-46.0) % MCV (80.0-100.0) fL MCH (25.0-35.0) pg MCHC (31.0-37.0) g/dL RDW (11.5-15.5) % Plt Count (150-450) k/uL Neutrophils % % Lymphocytes % % Monocytes % % Eosinophils % % Basophils % % Neutrophils # (1.3-7.7) k/uL Lymphocytes # (1.0-4.8) k/uL Monocytes # (0-1.0) k/uL Eosinophils # (0-0.7) k/uL Basophils # (0-0.2) k/uL Sodium (137-145) mmol/L Potassium (3.5-5.1) mmol/L Chloride (98-107) mmol/L Carbon Dioxide (22-30) mmol/L Anion Gap mmol/L BUN (7-17) mg/dL Creatinine (0.52-1.04) mg/dL Est GFR (MDRD) Af Amer (>60 ml/min/1.73 sqM) Est GFR (MDRD) Non-Af (>60 ml/min/1.73 sqM) Glucose (74-99) mg/dL Calcium (8.4-10.2) mg/dL Total Bilirubin (0.2-1.3) mg/dL AST (14-36) U/L ALT (9-52) U/L Alkaline Phosphatase (38-126) U/L NT-Pro-B Natriuret Pep 120 pg/mL Total Protein (6.3-8.2) g/dL Albumin (3.5-5.0) g/dL TSH (0.465-4.680) mIU/L Urine Color Light Yellow Urine Appearance Clear (Clear) Urine pH 6.5 (5.0-8.0) Ur Specific [place] 1.008 (1.001-1.035) Urine Protein Negative (Negative) Urine Glucose (UA) Negative (Negative) Urine Ketones Negative (Negative) Urine Blood Negative (Negative) Urine Nitrite Negative (Negative) Urine Bilirubin Negative (Negative) Urine Urobilinogen <2.0 (<2.0) mg/dL Ur Leukocyte Esterase Negative (Negative) Urine HCG, Qual Not Detected (Not Detectd) Disposition Clinical Impression: Hypothyroid, Leg edema Disposition: HOME SELF-CARE Condition: Good Instructions: Hypothyroidism (ED) Additional Instructions: Please use medication as discussed. Please follow-up with family doctor in the next 2 days. Please return to emergency room if the symptoms increase or worsen or for any other concerns. Prescriptions: Thyroid,Pork [[place] Thyroid] 60 mg PO DAILY #30 tab Referrals: Zachariah Ruano DO [Primary Care Provider] - 1-2 days Time of Disposition: 17:19
[2017-03-07 16:11] LABS: Basophils % (A) 1 %; CH 30.5; CHCM 35.4; Eosinophils # (A) 0.6 k/uL (0-0.7); Eosinophils % (A) 9 %; HCT 42.7 % (34.0-46.0); HDW 2.69; HGB 15.4 gm/dL (11.4-16.0); Luc # (Auto) 0.13; Luc % (Auto) 2; Lymphocytes # (A) 1.7 k/uL (1.0-4.8); Lymphocytes % (A) 27 %; MCH 31.1 pg (25.0-35.0); MCV 86.4 fL (80.0-100.0); Monocytes # (A) 0.4 k/uL (0-1.0); Monocytes % (A) 6 %; Neutrophils # (A) 3.4 k/uL (1.3-7.7); Neutrophils % (A) 56 %; RBC 4.94 m/uL (3.80-5.40); RDW 12.9 % (11.5-15.5); WBC 6.1 k/uL (3.8-10.6); WBC (Perox) 5.84
[2017-03-07 16:14] LABS: Appearance,Urine Clear (Clear); Bilirubin,Urine Negative (Negative); Glucose,Urine (UA) Negative (Negative); Ketones,Urine Negative (Negative); Leukocyte Esterase,Urine Negative (Negative); Nitrite,Urine Negative (Negative); PH, Urine 6.5 (5.0-8.0); Protein,Urine Negative (Negative); Specific Gravity,Urine 1.008 (1.001-1.035); UA Billing (MACRO vs. MICRO) CHEM; Urobilinogen,Urine <2.0 mg/dL (<2.0)
[2017-03-07 16:31] LABS: ALT 38 U/L (9-52); AST 29 U/L (14-36); Alkaline Phosphatase 90 U/L (38-126); Anion Gap 10 mmol/L; Blood Urea Nitrogen 11 mg/dL (7-17); Calcium 9.4 mg/dL (8.4-10.2); Carbon Dioxide 27 mmol/L (22-30); Chloride 105 mmol/L (98-107); Glucose 68 mg/dL (74-99); Non-African American GFR(MDRD) >60 (>60 ml/min/1.73 sqM); Potassium 3.9 mmol/L (3.5-5.1); Sodium 142 mmol/L (137-145); Total Bilirubin 0.3 mg/dL (0.2-1.3); Total Protein 7.6 g/dL (6.3-8.2)
--- NOTE | 2017-03-07 16:42 | XR ---
EXAMINATION TYPE: XR chest 2V DATE OF EXAM: 03/07/2017 COMPARISON: 04/05/2015 HISTORY: 37-year-old female with leg edema TECHNIQUE: PA and lateral views FINDINGS: The cardiomediastinal silhouette, aorta, and pulmonary vasculature are within normal limits. Mild int erstitial prominence is unchanged. Otherwise, lungs and pleural spaces are clear. IMPRESSION: Chronic changes without acute cardiopulmonary process.
[2017-03-07] MEDS ORDERED: THYROID, PORK 30 MG TAB PO STA (17:18)
[2017-03-07 17:45] VITALS: BP 125/85; PULSE 65; RESP 16; TEMP 97.8
== END 2017-03-07 18:01 | disposition home or self-care (01) ==
LOC: EC 14:58
DX: E03.9 Hypothyroidism, unspecified (principal); R60.0 Localized edema; Z88.8 Allergy status to other drugs, medicaments and biological substances; Z91.018 Allergy to other foods
CPT/HCPCS: 36415; 71020; 80053; 81003; 81025; 83880; 84439; 84443; 85025; 99283

== ENCOUNTER 2017-03-21 23:29 | Emergency (ER) | payer SELFPAY ==
[2017-03-21] MEDS ORDERED: KETOROLAC 60 MG/2 ML VIAL IM STA (23:52)
[2017-03-21] MEDS ORDERED: ORPHENADRINE 30 MG/ML 2 ML VIAL IM STA (23:52)
--- NOTE | 2017-03-21 23:54 | ED ---
Back Pain HPI - General Chief Complaint: Back Pain/Injury Stated Complaint: back pain Time Seen by Provider: 03/21/17 23:45 Source: patient, RN notes reviewed Limitations: no limitations - History of Present Illness Initial Comments: 37-year-old female presents emergency from chief complaint back pain. Patient states she has chronic back issues and states that she's been drinking more than usual last few days. She's had increased back pain unalleviated with her TENS unit, inversion table, stretching, heat, ice, Tylenol and Motrin. She states that she has no bowel bladder incontinence or retention. She is abdominal pain. Denies any saddle anesthesias. She states that she did have some paresthesias of her left leg this is normal for her. She states pain radiates from low back to her leg. She denies any dysuria or hematuria. She has increased pain with range of motion better at rest. - Related Data Previous Rx's Medication Instructions Recorded Thyroid,Pork [[place] Thyroid] 60 mg PO DAILY #30 tab 03/07/17 Cyclobenzaprine [Flexeril] 10 mg PO TID PRN #15 tab 03/21/17 Hydrocodone/Acetaminophen [[place] 1 tab PO Q6HR PRN #15 tab 03/21/17 5-325] Allergies Allergy/AdvReac Type Severity Reaction Status Date / Time baclofen Allergy STOMACH Verified 03/21/17 23:38 PAIN chicken derived Allergy Anaphylaxis Verified 03/21/17 23:38 zonisamide [From Zonegran] Allergy Confusion Verified 03/21/17 23:38 Review of Systems ROS Statement: Those systems with pertinent positive or pertinent negative responses have been documented in the HPI. ROS Other: All systems not noted in ROS Statement are negative. Past Medical History Past Medical History: Fibromyalgia, Hearing Disorder / Deafness, Thyroid Disorder Additional Past Medical History / Comment(s): knee pain, MIGRAINES back pain hypotension History of Any Multi-Drug Resistant Organisms: None Reported Past Surgical History: Hysterectomy, Orthopedic Surgery, Tubal Ligation Past Psychological History: Anxiety, Depression Smoking Status: Never smoker Past Alcohol Use History: None Reported Past Drug Use History: None Reported General Exam Limitations: no limitations General appearance: alert, in no apparent distress Neck exam: Present: normal inspection, full ROM. Absent: tenderness, meningismus, lymphadenopathy Respiratory exam: Present: normal lung sounds bilaterally. Absent: respiratory distress, wheezes, rales, rhonchi, stridor Cardiovascular Exam: Present: regular rate, normal rhythm, normal heart sounds. Absent: systolic murmur, diastolic murmur, rubs, gallop, clicks GI/Abdominal exam: Present: soft, normal bowel sounds. Absent: distended, tenderness, guarding, rebound, rigid Back exam: Present: full ROM, tenderness (lumbar), paraspinal tenderness. Absent: vertebral tenderness Neurological exam: Present: alert, oriented X3, CN II-XII intact, reflexes normal. Absent: motor sensory deficit Skin exam: Present: warm, dry, intact, normal color. Absent: rash Course Vital Signs 03/21/17 23:36 Temperature 98.3 F Pulse Rate 106 H Respiratory 20 Rate Blood Pressure 121/79 O2 Sat by Pulse 99 Oximetry Medical Decision Making - Medical Decision Making 37-year-old female presented for low back pain. Patient has acute on chronic exacerbation of her back pain. Patient has no red flag symptoms or neurological deficits. Patient will be given Toradol and Norflex in the emergency room. Patient be discharged with medications and advised to follow up tomorrow with her PCP. Return parameters were discussed. Disposition Clinical Impression: Acute exacerbation of chronic low back pain Disposition: HOME SELF-CARE Condition: Stable Instructions: Acute Low Back Pain (ED) Additional Instructions: Please return to the Emergency Department if symptoms worsen or any other concerns. Prescriptions: Cyclobenzaprine [Flexeril] 10 mg PO TID PRN #15 tab PRN Reason: Muscle Spasm Hydrocodone/Acetaminophen [[place] 5-325] 1 tab PO Q6HR PRN #15 tab PRN Reason: Pain Referrals: Zachariah Ruano DO [Primary Care Provider] - 1-2 days Time of Disposition: 23:54
[2017-03-22 00:44] VITALS: BP 111/64; PULSE 81; RESP 16; TEMP 98.5
== END 2017-03-22 00:44 | disposition home or self-care (01) ==
LOC: EC 23:29
DX: M54.5 Low back pain (principal); G89.29 Other chronic pain; Z88.8 Allergy status to other drugs, medicaments and biological substances; Z91.018 Allergy to other foods
CPT/HCPCS: 99283; 96372 ×2; J2360; J1885

== ENCOUNTER 2017-04-29 21:11 | Emergency (ER) | payer OTHER ==
[2017-04-29 22:07] VITALS: BP 128/82; PULSE 78; RESP 18; TEMP 98.2
--- NOTE | 2017-04-29 22:19 | ED ---
General Adult HPI - General Chief complaint: ENT Stated complaint: Sore Throat Time Seen by Provider: 04/29/17 21:59 Source: patient, RN notes reviewed Mode of arrival: ambulatory Limitations: no limitations - History of Present Illness Initial comments: This is a 37-year-old female who presents to emergency department today with chief complaint of sore throat. She states that she has had a sore throat for past couple of days and is concerned that it could be strep throat. She reports she has been feeling warmer than normal but has not had any fevers. She denies chills, cough, rhinorrhea, sinus congestion or ear pain. Denies chest pain, shortness of breath, abdominal pain, nausea, vomiting, dysuria, hematuria, numbess, tingling, headache or vision changes. - Related Data Previous Rx's Medication Instructions Recorded Thyroid,Pork [[place] Thyroid] 60 mg PO DAILY #30 tab 03/07/17 Cyclobenzaprine [Flexeril] 10 mg PO TID PRN #15 tab 03/21/17 Hydrocodone/Acetaminophen [[place] 1 tab PO Q6HR PRN #15 tab 03/21/17 5-325] Allergies Allergy/AdvReac Type Severity Reaction Status Date / Time baclofen Allergy STOMACH Verified 03/21/17 23:38 PAIN chicken derived Allergy Anaphylaxis Verified 03/21/17 23:38 zonisamide [From Zonegran] Allergy Confusion Verified 03/21/17 23:38 Review of Systems ROS Statement: Those systems with pertinent positive or pertinent negative responses have been documented in the HPI. ROS Other: All systems not noted in ROS Statement are negative. Past Medical History Past Medical History: Fibromyalgia, Hearing Disorder / Deafness, Thyroid Disorder Additional Past Medical History / Comment(s): knee pain, MIGRAINES back pain hypotension History of Any Multi-Drug Resistant Organisms: None Reported Past Surgical History: Hysterectomy, Orthopedic Surgery, Tubal Ligation Past Psychological History: Anxiety, Depression Smoking Status: Never smoker Past Alcohol Use History: None Reported Past Drug Use History: None Reported General Exam - General Exam Comments Initial Comments: General: Awake and alert, well-developed; in no apparent distress. She is wearing a face mask. HEENT: Head atraumatic, normocephalic. Pupils are equal, round and reactive to light. Extraocular movements intact. Oropharynx moist with mild erythema, no exudates. Neck: Supple. Normal ROM. Trachea midline. No adenopathy. Cardiovascular: Regular rate and rhythm. No murmurs, rubs or gallops. Chest symmetrical. Respiratory: Lungs clear to auscultation bilaterally. No wheezes, rales or rhonchi. Normal respiratory effort with no use of accessory muscles. Abdomen: Soft, non-tender, non-distended. No rigidity, rebound or guarding. Normal bowel sounds in all 4 quadrants. Skin: [place], warm and dry without rashes or lesions. Neurological: Alert and oriented x3. CN II-XII grossly intact. Speech is fluent and answers are appropriate. No focal neuro deficits. Psychiatric: Normal mood and affect. No overt signs of depression or anxiety noted. Medical Decision Making - Medical Decision Making Rapid strep test was performed and was negative. patient will be discharged home with recommendation to follow-up with his primary care provider within 1 to 2 days. Disposition Clinical Impression: Pharyngitis Disposition: HOME SELF-CARE Condition: Good Instructions: Pharyngitis (ED) Additional Instructions: Please follow up with PCP within 1-2 days. Return to ED if symptoms should worsen or any concerns arise. Referrals: Zachariah Ruano DO [Primary Care Provider] - 1-2 days Time of Disposition: 22:42
== END 2017-04-29 22:46 | disposition home or self-care (01) ==
LOC: EC 21:11
DX: J02.9 Acute pharyngitis, unspecified (principal); Z88.8 Allergy status to other drugs, medicaments and biological substances
CPT/HCPCS: 87081; 87430; 99283

== ENCOUNTER 2017-06-15 20:17 | Emergency (ER) | payer OTHER ==
[2017-06-15 20:31] VITALS: RESP 16; TEMP 98.9
[2017-06-15] MEDS ORDERED: DEXAMETHASONE SOD PHOSPHATE 10 MG/ML 1 ML VIAL IV STA (21:03)
[2017-06-15] MEDS ORDERED: KETOROLAC 30 MG/ML 1 ML VIAL IVP STA (21:03)
[2017-06-15] MEDS ORDERED: SODIUM CHLORIDE 0.9% 1,000 ML IV ONE (21:03)
[2017-06-15] MEDS ORDERED: diphenhydrAMINE 50 MG/ML 1 ML VIAL IVP STA (21:03)
[2017-06-15] MEDS ORDERED: METOCLOPRAMIDE 5 MG/ML 2 ML VIAL IVP STA (21:03)
--- NOTE | 2017-06-15 21:10 | ED ---
General Adult HPI - General Chief complaint: Headache Stated complaint: migraine Time Seen by Provider: 06/15/17 20:38 Source: patient Mode of arrival: ambulatory Limitations: no limitations - History of Present Illness Initial comments: patient is a 37 year old female presents with a chief complaint of a migraine headache. Patient states that he has a history of migraine headaches and that this headache is very similar. She states that she used to be on Topamax for her headaches however she was recently taken off of all her medications. patient states that her headache started 12 hours ago. She admits to nausea and vomiting. The patient cannot identify any inciting incidences. Aggravating factors include light and sound. There are no alleviating factors. Timing is constant. Patient states that in the past she has had to come to the hospital for her headaches she has required a "morphine derivative". - Related Data Home Medications Medication Instructions Recorded Confirmed Aspirin/Acetaminophen/Caffeine 2 tab PO Q4H PRN 06/15/17 06/15/17 [Excedrin Migraine Caplet] Butalb/Acetaminophen/Caffeine 1 tab PO ONCE PRN 06/15/17 06/15/17 [Fioricet 50-325-40] Naproxen [Naprosyn] 500 mg PO BID PRN 06/15/17 06/15/17 Thyroid,Pork [[place] Thyroid] 90 mg PO HS 06/15/17 06/15/17 diphenhydrAMINE HCL [Benadryl] 25 mg PO HS PRN 06/15/17 06/15/17 Allergies Allergy/AdvReac Type Severity Reaction Status Date / Time baclofen Allergy STOMACH Verified 06/15/17 20:48 PAIN chicken derived Allergy Anaphylaxis Verified 06/15/17 20:48 zonisamide [From Zonegran] Allergy Confusion Verified 06/15/17 20:48 Review of Systems ROS Statement: Those systems with pertinent positive or pertinent negative responses have been documented in the HPI. ROS Other: All systems not noted in ROS Statement are negative. Constitutional: Denies: fever Eyes: Denies: vision change ENT: Denies: ear pain, throat pain Respiratory: Denies: cough Cardiovascular: Denies: chest pain Endocrine: Denies: fatigue Gastrointestinal: Reports: nausea, vomiting. Denies: abdominal pain Genitourinary: Denies: dysuria Musculoskeletal: Denies: back pain Skin: Denies: rash, lesions Neurological: Reports: headache Past Medical History Past Medical History: Fibromyalgia, Hearing Disorder / Deafness, Thyroid Disorder Additional Past Medical History / Comment(s): knee pain, MIGRAINES back pain hypotension History of Any Multi-Drug Resistant Organisms: None Reported Past Surgical History: Hysterectomy, Orthopedic Surgery, Tubal Ligation Past Psychological History: Anxiety, Depression Smoking Status: Never smoker Past Alcohol Use History: None Reported Past Drug Use History: None Reported General Exam Limitations: no limitations General appearance: alert, other (patient appears uncomfortable secondary to pain. The patient has a hoodie draped over her head was found to be walking to the bathroom with her hoodie over her head covering her eyes.) Head exam: Present: atraumatic, normocephalic Eye exam: Present: normal appearance Neck exam: Absent: tenderness, meningismus Respiratory exam: Present: normal lung sounds bilaterally Cardiovascular Exam: Present: regular rate, normal rhythm GI/Abdominal exam: Present: soft. Absent: distended, tenderness Rectal exam: Present: deferred Neurological exam: Present: alert, oriented X3, CN II-XII intact, normal gait Psychiatric exam: Present: normal affect, normal mood Skin exam: Present: warm, dry, intact Course Vital Signs 06/15/17 20:27 Temperature 98.9 F Pulse Rate 87 Respiratory 16 Rate Blood Pressure 126/82 O2 Sat by Pulse 96 Oximetry Medical Decision Making - Medical Decision Making patient with a history of migraine headaches presents with a acute migraine headache. Patient will be given Toradol, Reglan, Benadryl, Decadron, and a liter of fluids. Patient was asking for a "morphine derivative" discussed that we will not be using narcotic medications today. 10:12 PM After headache medications, the patient was reexamined. She states she is feeling better. At this time, he is agreeable to discharge and follow-up with primary care and neurology. She was given explicit signs and symptoms that should prompt return visit to the emergency department. Disposition Clinical Impression: Migraine Disposition: HOME SELF-CARE Condition: Good Instructions: Acute Headache (ED) Referrals: Zachariah Ruano DO [Primary Care Provider] - 1-2 days
[2017-06-15 22:27] VITALS: BP 113/57; PULSE 63
== END 2017-06-15 22:33 | disposition home or self-care (01) ==
LOC: EC 20:17
DX: G43.909 Migraine, unspecified, not intractable, without status migrainosus (principal); E07.9 Disorder of thyroid, unspecified; Z88.8 Allergy status to other drugs, medicaments and biological substances; Z91.018 Allergy to other foods; Z79.899 Other long term (current) drug therapy
CPT/HCPCS: 99283; 96374; 96375 ×3; 96361; J1200; J1100; J2765; J1885

== ENCOUNTER 2017-08-16 20:27 | Emergency (ER) | payer OTHER ==
[2017-08-16 20:54] VITALS: BP 122/67; PULSE 84; RESP 18; TEMP 98.3
[2017-08-16] MEDS ORDERED: IBUPROFEN 600 MG TAB PO STA (21:26)
--- NOTE | 2017-08-16 21:26 | ED ---
ENT HPI - General Chief complaint: ENT Stated complaint: Swollen throat Time Seen by Provider: 08/16/17 21:07 Source: patient Mode of arrival: ambulatory Limitations: no limitations - History of Present Illness Initial comments: 37-year-old female patient presents to the emergency department today with complaints of left-sided neck pain and swelling. Patient states that a couple of hours ago she noticed that the left side of her neck and jaw are starting to become sore. She states that she felt over the area and it felt swollen to her. She denies taking anything for her discomfort. She denies any dental pain or infections. She denies any fevers or chills. Denies any sore throat, cough, congestion, or nasal drainage. She denies ever having similar symptoms. Patient denies any recent rash, shortness breath, chest pain, abdominal pain, nausea, vomiting, diarrhea, constipation, back pain, numbness, tingling, dizziness, weakness, hematuria, dysuria, urinary urgency, urinary frequency, headache, visual changes, or any other complaints. - Related Data Home Medications Medication Instructions Recorded Confirmed Aspirin/Acetaminophen/Caffeine 2 tab PO Q4H PRN 06/15/17 06/15/17 [Excedrin Migraine Caplet] Butalb/Acetaminophen/Caffeine 1 tab PO ONCE PRN 06/15/17 06/15/17 [Fioricet 50-325-40] Naproxen [Naprosyn] 500 mg PO BID PRN 06/15/17 06/15/17 Thyroid,Pork [[place] Thyroid] 90 mg PO HS 06/15/17 06/15/17 diphenhydrAMINE HCL [Benadryl] 25 mg PO HS PRN 06/15/17 06/15/17 Allergies Allergy/AdvReac Type Severity Reaction Status Date / Time baclofen Allergy STOMACH Verified 08/16/17 20:54 PAIN chicken derived Allergy Anaphylaxis Verified 08/16/17 20:54 zonisamide [From Zonegran] Allergy Confusion Verified 08/16/17 20:54 Review of Systems ROS Statement: Those systems with pertinent positive or pertinent negative responses have been documented in the HPI. ROS Other: All systems not noted in ROS Statement are negative. Past Medical History Past Medical History: Fibromyalgia, Hearing Disorder / Deafness, Thyroid Disorder Additional Past Medical History / Comment(s): knee pain, MIGRAINES back pain hypotension History of Any Multi-Drug Resistant Organisms: None Reported Past Surgical History: Hysterectomy, Orthopedic Surgery, Tubal Ligation Past Psychological History: Anxiety, Depression Smoking Status: Never smoker Past Alcohol Use History: None Reported Past Drug Use History: None Reported General Exam Limitations: no limitations General appearance: alert, in no apparent distress, other (this is a well- developed, well-nourished adult female patient in no acute distress. Vital signs upon presentation are temperature 98.3F, pulse 84, respirations 18, blood pressure 122/67, pulse ox 99% on room air.) Eye exam: Present: normal appearance, PERRL, EOMI. Absent: scleral icterus, conjunctival injection, periorbital swelling ENT exam: Present: normal exam, normal oropharynx, mucous membranes moist, TM's normal bilaterally, other (tonsils are symmetric and show no evidence of hypertrophy or exudate.) Neck exam: Present: normal inspection, tenderness (over the left lateral neck), lymphadenopathy (mildly enlarged lymph node noted to the left neck, approximately 1 cm). Absent: meningismus Respiratory exam: Present: normal lung sounds bilaterally. Absent: respiratory distress, wheezes, rales, rhonchi, stridor Cardiovascular Exam: Present: regular rate, normal rhythm, normal heart sounds. Absent: systolic murmur, diastolic murmur, rubs, gallop, clicks GI/Abdominal exam: Present: soft, normal bowel sounds. Absent: distended, tenderness, guarding, rebound, rigid Neurological exam: Present: alert, oriented X3, CN II-XII intact Psychiatric exam: Present: normal affect, normal mood Skin exam: Present: warm, dry, intact, normal color. Absent: rash Course Vital Signs 08/16/17 20:52 Temperature 98.3 F Pulse Rate 84 Respiratory 18 Rate Blood Pressure 122/67 O2 Sat by Pulse 99 Oximetry Medical Decision Making - Medical Decision Making 37-year-old female patient presents to the emergency department today for evaluation of left-sided neck pain and swelling. Physical examination did reveal a mildly swollen lymph node approximately 1 cm in diameter. Patient was tender over this area. I did discuss with patient that this could be an inflamed lymph node. I informed her that she may notice development of other symptoms including sore throat and upper respiratory symptoms. She is instructed take ibuprofen for pain relief. She is instructed to follow-up with her primary care physician for further evaluation or to return here immediately for any new, worsening, or concerning symptoms. She verbalizes understanding and agrees with this plan. Disposition Clinical Impression: Swelling of lymph node Disposition: HOME SELF-CARE Condition: Good Instructions: Lymphadenopathy (ED) Additional Instructions: Take Advil for pain control. Monitor for worsening signs or symptoms. Follow- up with your doctor in 1-2 days. Return here immediately for any new, worsening , or concerning symptoms. Referrals: Harsh Hargrove MD [Primary Care Provider] - 1-2 days Time of Disposition: 21:26
== END 2017-08-16 21:37 | disposition home or self-care (01) ==
LOC: EC 20:27
DX: M54.2 Cervicalgia (principal); R59.9 Enlarged lymph nodes, unspecified; E07.9 Disorder of thyroid, unspecified; H91.90 Unspecified hearing loss, unspecified ear; Z79.899 Other long term (current) drug therapy; Z88.8 Allergy status to other drugs, medicaments and biological substances; Z91.018 Allergy to other foods
CPT/HCPCS: 99283

== ENCOUNTER → 2017-09-10 | Outpatient (CLI) | payer OTHER ==
--- NOTE | 2017-09-10 22:24 | MR ---
EXAMINATION TYPE: MR knee LT wo con DATE OF EXAM: 09/10/2017 COMPARISON: Plain film 08/10/2017 HISTORY: Knee pain for 6 years TECHNIQUE: Multiplanar, multisequence imaging of the left knee is performed without IV contrast. FINDINGS: MEDIAL MENISCUS: Anterior and posterior horns are intact without tear. LATERAL MENISCUS: Anterior and posterior horns are intact without tear. CRUCIATE LIGAMENTS: The anterior and posterior cruciate ligaments are intact and unremarkable. COLLATERAL LIGAMENTS: The medial collateral ligament and lateral collateral ligament complex are inta ct and unremarkable. EXTENSOR MECHANISM: Visualized quadriceps and patellar tendons are intact. EFFUSION: Small suprapatellar joint effusion POPLITEAL CYST: No popliteal/dias cyst. TRICOMPARTMENT SPACES: Maintained CARTILAGE: Within normal limits in the medial and lateral compartments, question some mild chondromal acia posterior patella BONE MARROW SIGNAL: Maintained OTHER: Some minimal prepatellar soft tissue edema extends along the patellar tendon within the subcu taneous fat IMPRESSION: There may be some mild chondromalacia. No evident meniscal tear.
== END | disposition home or self-care (01) ==
LOC: RADMRIMAIN 17:33
PROVIDERS: ATTEND Orthopaedic Surgery
DX: M25.562 Pain in left knee (principal)

== ENCOUNTER → 2017-09-10 | Outpatient (CLI) | payer OTHER ==
--- NOTE | 2017-09-10 23:12 | MR ---
MRI CERVICAL SPINE: CLINICAL HISTORY: Headaches and neck pain TECHNIQUE: Multiplanar, multisequence imaging of the cervical spine is performed without contrast. COMPARISON: None. FINDINGS: Cervical spine. The cervical vertebra have fairly normal spacing and alignment. There are small posterior disc bulges at C4-5 C5-6. There is developmentally adequate spinal canal. Cervical spinal cord has normal signal pattern. There is no edema. There is no spinal stenosis. I see no bony destructive process. Posterio r elements appear intact. The brainstem is intact. Brain The ventricles have normal size. There is no mass effect nor midline shift. There is no sign of intra cranial hemorrhage. Meneses-white matter structures have fairly normal signal pattern. There is no evide nce of cerebral edema. Brainstem appears normal. Corpus callosum appears normal. Sella turcica appear s normal. CONCLUSION: Minimal posterior disc bulging in the cervical spine. Otherwise negative exam. No spinal stenosis. No fracture. Normal MR scan of the brain.
== END | disposition home or self-care (01) ==
LOC: RADMRIMAIN 17:39
PROVIDERS: ATTEND Psychiatry & Neurology Neurology
DX: M50.221 Other cervical disc displacement at C4-C5 level (principal); R51 Headache
CPT/HCPCS: 70551; 72141

== ENCOUNTER → 2017-10-19 | Outpatient (CLI) | payer OTHER ==
--- NOTE | 2017-10-19 14:07 | XR ---
Bilateral hips HISTORY: Bilateral hip pain 2 views of each hip are submitted No comparisons Bone mineralization, joint spaces and alignment are maintained. There is no fracture or dislocation. IMPRESSION: Normal hips.
== END | disposition home or self-care (01) ==
LOC: RADXRMAIN 09:48
PROVIDERS: ATTEND Family Medicine
DX: M25.559 Pain in unspecified hip (principal)
CPT/HCPCS: 73521

== ENCOUNTER 2018-07-17 03:02 | Emergency (ER) | payer OTHER ==
[2018-07-17 03:17] VITALS: RESP 16
--- NOTE | 2018-07-17 04:30 | ED ---
Female Urogenital HPI - General Chief complaint: Vaginal Bleeding Stated complaint: Vaginal Bleeding Time Seen by Provider: 07/17/18 03:46 Source: patient Mode of arrival: ambulatory Limitations: no limitations - History of Present Illness Initial comments: This patient is a 38 year old woman who presents to be evaluated for vaginal bleeding. Patient states that she was getting ready for bed tonight, she went and use the bathroom, and then when she wiped she noted that there was bright red blood. Patient denies any trauma to the genital area or any intercourse tonight. The patient states that she was concerned that she had a hysterectomy performed about 10 years ago and has not had any bleeding since that time. The patient denies any symptoms associated with anemia, including no orthostatic symptoms, no chest pain, dyspnea, diaphoresis, palpitations or other symptoms. MD Complaint: vaginal bleeding Onset/Timin -: hour(s) Location: perineum Improves with: none Worsens with: none Patient : No Associated Symptoms: denies other symptoms - Related Data Home Medications Medication Instructions Recorded Confirmed Aspirin/Acetaminophen/Caffeine 2 tab PO Q4H PRN 06/15/17 06/15/17 [Excedrin Migraine Caplet] Butalb/Acetaminophen/Caffeine 1 tab PO ONCE PRN 06/15/17 06/15/17 [Fioricet 50-325-40] Naproxen [Naprosyn] 500 mg PO BID PRN 06/15/17 06/15/17 Thyroid,Pork [[place] Thyroid] 90 mg PO HS 06/15/17 06/15/17 diphenhydrAMINE HCL [Benadryl] 25 mg PO HS PRN 06/15/17 06/15/17 Allergies Allergy/AdvReac Type Severity Reaction Status Date / Time baclofen Allergy STOMACH Verified 07/17/18 03:17 PAIN chicken derived Allergy Anaphylaxis Verified 07/17/18 03:17 zonisamide [From Zonegran] Allergy Confusion Verified 07/17/18 03:17 Review of Systems ROS Statement: Those systems with pertinent positive or pertinent negative responses have been documented in the HPI. ROS Other: All systems not noted in ROS Statement are negative. Constitutional: Denies: fever, chills Respiratory: Denies: cough, dyspnea Cardiovascular: Denies: chest pain, palpitations, syncope Gastrointestinal: Denies: abdominal pain Genitourinary: Reports: discharge (Bleeding). Denies: dysuria, frequency, hematuria, dyspareunia Musculoskeletal: Denies: back pain Skin: Denies: rash Neurological: Denies: headache, weakness, numbness Hematological/Lymphatic: Denies: easy bleeding Past Medical History Past Medical History: Fibromyalgia, Hearing Disorder / Deafness, Thyroid Disorder Additional Past Medical History / Comment(s): knee pain, MIGRAINES back pain hypotension History of Any Multi-Drug Resistant Organisms: None Reported Past Surgical History: Hysterectomy, Orthopedic Surgery, Tubal Ligation Past Psychological History: Anxiety, Depression Smoking Status: Never smoker Past Alcohol Use History: None Reported Past Drug Use History: None Reported General Exam Limitations: no limitations General appearance: alert, in no apparent distress Head exam: Present: atraumatic, normocephalic Eye exam: Present: normal appearance ENT exam: Present: normal oropharynx Neck exam: Present: normal inspection Respiratory exam: Present: normal lung sounds bilaterally. Absent: respiratory distress, wheezes, rales, rhonchi, stridor Cardiovascular Exam: Present: regular rate, normal rhythm, normal heart sounds. Absent: systolic murmur, diastolic murmur, rubs, gallop GI/Abdominal exam: Present: soft. Absent: distended, tenderness, guarding, rebound, rigid, mass External exam: Present: normal external exam, other (FRITZ Hooper present). Absent : erythema, swelling, lesions, lacerations Speculum exam: Present: other (There is a small area of ulceration on the left side, anterior wall of the vagina. No active bleeding.). Absent: erythema, vaginal discharge, vaginal bleeding, foreign body, tissue By manual exam: Present: normal by manual exam. Absent: adnexal tenderness, adnexal mass Extremities exam: Present: normal inspection Neurological exam: Present: alert Skin exam: Present: warm, dry, intact, normal color. Absent: rash Course Vital Signs 07/17/18 07/17/18 03:14 06:00 Temperature 98.4 F Pulse Rate 96 62 Respiratory 16 16 Rate Blood Pressure 111/72 91/63 O2 Sat by Pulse 98 100 Oximetry Medical Decision Making - Lab Data Result diagrams: 07/17/18 05:11 Lab Results 07/17/18 07/17/18 07/17/18 Range/Units 05:11 05:11 05:11 PT (9.0-12.0) sec INR (<1.2) APTT (22.0-30.0) sec Sodium 139 (137-145) mmol/L Potassium 4.3 (3.5-5.1) mmol/L Chloride 107 (98-107) mmol/L Carbon Dioxide 21 L (22-30) mmol/L Anion Gap 11 mmol/L BUN 22 H (7-17) mg/dL Creatinine 0.88 (0.52-1.04) mg/dL Est GFR (CKD-EPI)AfAm >90 (>60 ml/min/1.73 sqM) Est GFR (CKD-EPI)NonAf 85 (>60 ml/min/1.73 sqM) Glucose 91 (74-99) mg/dL Calcium 9.7 (8.4-10.2) mg/dL Urine Color Light Yellow Urine Appearance Clear (Clear) Urine pH 6.0 (5.0-8.0) Ur Specific Tina 1.011 (1.001-1.035) Urine Protein Negative (Negative) Urine Glucose (UA) Negative (Negative) Urine Ketones Negative (Negative) Urine Blood Negative (Negative) Urine Nitrite Negative (Negative) Urine Bilirubin Negative (Negative) Urine Urobilinogen <2.0 (<2.0) mg/dL Ur Leukocyte Esterase Small H (Negative) Urine WBC 1 (0-5) /hpf Ur Squamous Epith Cells 1 (0-4) /hpf Urine HCG, Qual Not Detected (Not Detectd) Trichomonas Ag (Rapid) (Negative) 07/17/18 07/17/18 Range/Units 05:24 05:55 PT 11.7 (9.0-12.0) sec INR 1.1 (<1.2) APTT 29.1 (22.0-30.0) sec Sodium (137-145) mmol/L Potassium (3.5-5.1) mmol/L Chloride (98-107) mmol/L Carbon Dioxide (22-30) mmol/L Anion Gap mmol/L BUN (7-17) mg/dL Creatinine (0.52-1.04) mg/dL Est GFR (CKD-EPI)AfAm (>60 ml/min/1.73 sqM) Est GFR (CKD-EPI)NonAf (>60 ml/min/1.73 sqM) Glucose (74-99) mg/dL Calcium (8.4-10.2) mg/dL Urine Color Urine Appearance (Clear) Urine pH (5.0-8.0) Ur Specific Tina (1.001-1.035) Urine Protein (Negative) Urine Glucose (UA) (Negative) Urine Ketones (Negative) Urine Blood (Negative) Urine Nitrite (Negative) Urine Bilirubin (Negative) Urine Urobilinogen (<2.0) mg/dL Ur Leukocyte Esterase (Negative) Urine WBC (0-5) /hpf Ur Squamous Epith Cells (0-4) /hpf Urine HCG, Qual (Not Detectd) Trichomonas Ag (Rapid) Negative (Negative) Disposition Clinical Impression: Ovarian cyst, Vaginal bleeding Disposition: HOME SELF-CARE Condition: Good Instructions: Ovarian Cyst (ED), Dysfunctional Uterine Bleeding (ED) Is patient prescribed a controlled substance at d/c from ED?: No Referrals: Harsh Hargrove MD [Primary Care Provider] - 1-2 days Yusef Leon DO [Doctor of Osteopathic Medicine] - 1-2 days
[2018-07-17 05:28] LABS: Appearance,Urine Clear (Clear); Bilirubin,Urine Negative (Negative); Blood,Urine Negative (Negative); Color,Urine Light Yellow; Glucose,Urine (UA) Negative (Negative); Ketones,Urine Negative (Negative); Leukocyte Esterase,Urine Small (Negative); Nitrite,Urine Negative (Negative); Protein,Urine Negative (Negative); Specific Gravity,Urine 1.011 (1.001-1.035); Squamous Epithelial Cell,Urine 1 /hpf (0-4); Urobilinogen,Urine <2.0 mg/dL (<2.0); WBC,Urine 1 /hpf (0-5)
[2018-07-17 05:34] LABS: Anion Gap 11 mmol/L; Blood Urea Nitrogen 22 mg/dL (7-17); Calcium 9.7 mg/dL (8.4-10.2); Carbon Dioxide 21 mmol/L (22-30); Chloride 107 mmol/L (98-107); Glucose 91 mg/dL (74-99); Potassium 4.3 mmol/L (3.5-5.1); Sodium 139 mmol/L (137-145)
[2018-07-17 05:48] LABS: INR 1.1 (<1.2); Partial Thromboplastin Time 29.1 sec (22.0-30.0); Prothrombin Time 11.7 sec (9.0-12.0)
--- NOTE | 2018-07-17 08:11 | US ---
EXAMINATION TYPE: US transvaginal plus Dopplers. DATE OF EXAM: 07/17/2018 COMPARISON: None CLINICAL HISTORY: 38-year-old female bleeding post hysterectomy. Spotting yesterday. Partial hystere ctomy x 10 years ago TECHNIQUE: Transvaginal (TV). Color Doppler and spectral waveform analysis of the ovarian arteries and veins. Date of LMP: Hysterectomy FINDINGS: Uterus is surgically absent. Right Ovary: 2.5 x 1.7 x 1.4 cm with a couple small follicles. Satisfactory arterial and venous flow was demonstrated. Left Ovary: 3.4 x 2.2 x 2.1 cm with satisfactory arterial and venous flow. There is an oval 1.9 x 1. 6 cm hypoechoic lesion within with peripheral vascularity. Small amount of free fluid adjacent to the right ovary. No cul-de-sac free fluid or adnexal abnormali ty otherwise seen. IMPRESSION: 1. Findings suggest a 1.9 cm hemorrhagic corpus luteum in the left ovary. 2. No sonographic evidence for ovarian torsion on either side. 3. Small amount of nonspecific free fluid adjacent to the right ovary.
[2018-07-17 09:03] VITALS: BP 100/72; PULSE 84; TEMP 98.3
[2018-07-19 15:15] LABS: C. trachomatis,PCR Negative (Neg,Equiv); Chlamydia trachomatis Source Urine; N. gonorrhoeae,PCR Negative (Neg,Equiv); Neisseria Source Urine
== END 2018-07-17 08:43 | disposition home or self-care (01) ==
LOC: EC 03:02
DX: N83.209 Unspecified ovarian cyst, unspecified side (principal); N93.9 Abnormal uterine and vaginal bleeding, unspecified; N76.5 Ulceration of vagina; E07.9 Disorder of thyroid, unspecified; H91.90 Unspecified hearing loss, unspecified ear; Z88.8 Allergy status to other drugs, medicaments and biological substances; Z91.018 Allergy to other foods; Z79.899 Other long term (current) drug therapy; Z90.710 Acquired absence of both cervix and uterus; Z98.51 Tubal ligation status
CPT/HCPCS: 36415; 76830; 80048; 81001; 81025; 85610; 85730; 86780; 87491; 87591; 87808; 93975; 99284

== ENCOUNTER → 2019-05-13 | Outpatient (CLI) | payer MEDICAID ==
--- NOTE | 2019-05-13 11:12 | FL ---
EXAMINATION TYPE: FL barium swallow w video DATE OF EXAM: 05/13/2019 MODIFIED SWALLOW / DEGLUTITION STUDY CLINICAL HISTORY: Dysphagia. Choking on shoot food. History of GERD. TECHNIQUE: Deglutition study is performed utilizing thin liquid barium, honey and nectar thick liqui d barium, barium thick pudding, and barium coated cracker. Total of 52 seconds of fluoroscopic time u tilized during procedure. 0 spot images saved to PACS. COMPARISON: Prior barium swallow study report October 23, 2015 FINDINGS: The oral and pharyngeal phases show satisfactory initiation and propagation with all modali ties tested. Satisfactory mastication is seen with solid modalities tested. There is no evidence of penetration or aspiration with any modality tested. No significant pharyngeal residue was appreciate d. IMPRESSION: Normal deglutition study. Please refer to speech therapist notes for further details if necessary.
== END | disposition home or self-care (01) ==
LOC: RADFLMAIN 10:24
PROVIDERS: ATTEND Physician Assistant Medical
DX: R13.10 Dysphagia, unspecified (principal)
CPT/HCPCS: 74230

== ENCOUNTER 2019-05-25 18:32 | Emergency (ER) | payer MEDICAID, OTHER ==
[2019-05-25 19:02] VITALS: BP 108/70; PULSE 91; RESP 18; TEMP 97.9
[2019-05-25] MEDS ORDERED: MORPHINE SULFATE 4 MG/ML SYRINGE IM STA (19:25)
[2019-05-25] MEDS ORDERED: predniSONE 50 MG TAB PO STA (19:25)
--- NOTE | 2019-05-25 19:46 | XR ---
EXAMINATION TYPE: XR lumbar spine 2 or 3V DATE OF EXAM: 05/25/2019 COMPARISON: 09/09/2015 HISTORY: Back pain TECHNIQUE: 3 views FINDINGS: Lumbar vertebra have normal alignment. Posterior elements are intact. Sacroiliac joints ja ear normal. There is no compression fracture. Disc spaces appear normal. IMPRESSION: Negative lumbar spine exam. No fracture. No change.
--- NOTE | 2019-05-25 20:27 | ED ---
General Adult HPI - General Chief complaint: Back Pain/Injury Stated complaint: back pain Time Seen by Provider: 05/25/19 19:06 Source: patient, family, RN notes reviewed, old records reviewed Mode of arrival: wheelchair Limitations: no limitations - History of Present Illness Initial comments: 39-year-old male patient with the chief complaint of lumbar back pain worsening with 3 days. Patient put that she has chronic lumbar back pain at baseline. Patient reports that this pain was mild on Thursday. Patient reports that on Thursday she worked all day standing, using her arms and her jaw. Patient ports that the pain has not worsened. Patient ports that she has tightness in her right and left paralumbar region. Patient or this is exacerbated with motion walking. Denies any falls or trauma. Denies loss of bladder/bowel control. Saddle anesthesia, Lower extremity weakness. Patient does report that she has some paresthesias extending down the posterior aspects of her legs. Reports that she had an hysterectomy and so she cannot be . Systemic: Pt denies fatigue, fever/chills, rash. Pt denies weakness, night sweats, weight loss. Neuro: Pt denies headache, visual disturbances, syncope or pre-syncope. HEENT: Pt denies ocular discharge or irritation, otalgia, rhinorrhea, pharyngitis or notable lymphadenopathy. Cardiopulmonary: Pt denies chest pain, SOB, heart palpitations, dyspnea on exertion. Abdominal/GI: Pt denies abdominal pain, n/v/d. : Pt denies dysuria, burning w/ urination, frequency/urgency. Denies new onset urinary or bowel incontinence. MSK: Pt denies loss of strength or function in extremities. Neuro: Pt denies new onset weakness, paresthesias. - Related Data Home Medications Medication Instructions Recorded Confirmed Aspirin/Acetaminophen/Caffeine 2 tab PO Q4H PRN 06/15/17 07/17/18 [Excedrin Migraine Caplet] Thyroid,Pork [[place] Thyroid] 90 mg PO HS 06/15/17 07/17/18 diphenhydrAMINE HCL [Benadryl] 25 - 75 mg PO HS PRN 06/15/17 07/17/18 Biotin 5 mg PO DAILY 07/17/18 07/17/18 Cholecalciferol [Vitamin D3] 1,000 unit PO DAILY 07/17/18 07/17/18 Melatonin 10 mg PO HS PRN 07/17/18 07/17/18 Multivitamin/Iron/Folic Acid 1 tab PO DAILY 07/17/18 07/17/18 [Centrum Adults Tablet] Plant Stanol Ayleen [Cholest Off] 450 mg PO DAILY 07/17/18 07/17/18 Topiramate [Topamax] 100 mg PO HS 07/17/18 07/17/18 Turmeric Root Extract [Turmeric] 500 mg PO DAILY 07/17/18 07/17/18 Previous Rx's Medication Instructions Recorded Cyclobenzaprine [Flexeril] 1 - 2 tab PO TID PRN #20 tablet 05/25/19 predniSONE 50 mg PO DAILY #4 tab 05/25/19 Allergies Allergy/AdvReac Type Severity Reaction Status Date / Time baclofen Allergy STOMACH Verified 07/17/18 08:16 PAIN chicken derived Allergy Anaphylaxis Verified 07/17/18 08:16 zonisamide [From Zonegran] Allergy Confusion Verified 07/17/18 08:16 Review of Systems ROS Statement: Those systems with pertinent positive or pertinent negative responses have been documented in the HPI. ROS Other: All systems not noted in ROS Statement are negative. Past Medical History Past Medical History: Fibromyalgia, Hearing Disorder / Deafness, Thyroid Disorder Additional Past Medical History / Comment(s): knee pain, MIGRAINES back pain hypotension History of Any Multi-Drug Resistant Organisms: None Reported Past Surgical History: Hysterectomy, Orthopedic Surgery, Tubal Ligation Past Psychological History: Anxiety, Depression Smoking Status: Never smoker Past Alcohol Use History: None Reported Past Drug Use History: None Reported General Exam - General Exam Comments Initial Comments: Constitutional: NAD, AOX3, Pt has pleasant affect. HEENT: NC/AT, trachea midline, neck supple, no lymphadenopathy. Posterior pharynx non erythematous, without exudates. External ears appear normal, without discharge. Mucous membranes moist. Eyes PERRLA, EOM intact. There is no scleral icterus. No pallor noted. Cardiopulmonary: RRR, no murmurs, rubs or gallops, no JVD noted. Lungs CTAB in anterior and posterior [place]cf[place]. No peripheral edema. Abdominal exam: Abdomen soft and non-distended. Abdomen non-tender to palpation in all 4 quadrants. Bowel sounds active in LLQ. No hepatosplenomegaly. No ecchymosis Neuro: CN II-XII grossly intact. No nuchal rigidity. No raccon eyes, no lind sign, no hemotympanum. No cervical spinal tenderness. MSK: Ambulatory with antalgic gait. 5 out of 5 strength psoas quadriceps muscles. Right straight leg raise positive. Left straight leg raise negative. Sensation intact. Right paralumbar region mild tender to palpation. No posterior calf tenderness bilaterally, homans sign negative bilaterally. Posterior tibialis and radial pulse +2 bilaterally. Sensation intact in upper and lower extremities. Full active ROM in upper and lower extremities, 5/5 stregnth. Limitations: no limitations Course Vital Signs 05/25/19 18:59 Temperature 97.9 F Pulse Rate 91 Respiratory 18 Rate Blood Pressure 108/70 O2 Sat by Pulse 97 Oximetry Medical Decision Making - Medical Decision Making 39-year-old male patient with the chief complaint of lumbar back pain worsening with 3 days. Patient put that she has chronic lumbar back pain at baseline. Patient reports that this pain was mild on Thursday. Patient reports that on Thursday she worked all day standing, using her arms and her jaw. Patient ports that the pain has not worsened. Patient ports that she has tightness in her right and left paralumbar region. Patient or this is exacerbated with motion walking. Denies any falls or trauma. Denies loss of bladder/bowel control. Saddle anesthesia, Lower extremity weakness. Patient does report that she has some paresthesias extending down the posterior aspects of her legs. Reports that she had an hysterectomy and so she cannot be . Patient will signs stable, afebrile. Physical exam displayed findings consistent with lumbar back strain with radiculopathy. Plain film of lumbar spine not display any acute process. Patient feeling much improved analgesia. Patient discharged with burst steroids. Primary care and orthopedic follow-up. Case discussed with Dr. Lamb. Disposition Clinical Impression: Lumbar back sprain Disposition: HOME SELF-CARE Condition: Stable Instructions (If sedation given, give patient instructions): Acute Low Back Pain (ED) Additional Instructions: Patient to adhere to previously discussed treatment plan and will take medication(s) as directed. Patient to follow up with PCP in 1-2 days. Patient to return to ED if symptoms do not improve. Follow-up with primary care provider, follow with orthopedic consult. Return to ER if condition worsens. Use tylenol/motrin as needed for pain. Prescriptions: Cyclobenzaprine [Flexeril] 1 - 2 tab PO TID PRN #20 tablet PRN Reason: muscle spasm predniSONE 50 mg PO DAILY #4 tab Is patient prescribed a controlled substance at d/c from ED?: No Referrals: Dona Yi DO [Primary Care Provider] - 1-2 days Matty Freitas MD [STAFF PHYSICIAN] - 1-2 days
== END 2019-05-25 20:31 | disposition home or self-care (01) ==
LOC: EC 18:32
DX: S33.5XXA Sprain of ligaments of lumbar spine, initial encounter (principal); R20.2 Paresthesia of skin; E07.9 Disorder of thyroid, unspecified; M79.7 Fibromyalgia; Z79.890 Hormone replacement therapy; Z79.899 Other long term (current) drug therapy; Z88.2 Allergy status to sulfonamides; Z88.8 Allergy status to other drugs, medicaments and biological substances; Z91.018 Allergy to other foods; Z90.710 Acquired absence of both cervix and uterus; X58.XXXA Exposure to other specified factors, initial encounter
CPT/HCPCS: 72100; 99284; 96372; J2270; J7512

== ENCOUNTER 2019-06-23 03:36 | Emergency (ER) | payer MEDICAID ==
[2019-06-23] MEDS ORDERED: MORPHINE SULFATE 4 MG/ML SYRINGE IV STA (04:09)
--- NOTE | 2019-06-23 04:12 | ED ---
Abdominal Pain HPI - General Chief Complaint: Abdominal Pain Stated Complaint: L Flank Pain Time Seen by Provider: 06/23/19 03:55 Source: patient Mode of arrival: ambulatory Limitations: no limitations - History of Present Illness MD Complaint: flank pain Onset/Timin -: hour(s) Location: L flank Radiation: LLQ Severity: severe Quality: other (Like a muscle spasm) Consistency: colicky Improves With: other (Walking) Worsens With: nothing Associated Symptoms: nausea, vomiting Treatments Prior to Arrival: NSAIDs - Related Data Patient : No (Hysterectomy) Home Medications Medication Instructions Recorded Confirmed Aspirin/Acetaminophen/Caffeine 2 tab PO Q4H PRN 06/15/17 07/17/18 [Excedrin Migraine Caplet] Thyroid,Pork [[place] Thyroid] 90 mg PO HS 06/15/17 07/17/18 diphenhydrAMINE HCL [Benadryl] 25 - 75 mg PO HS PRN 06/15/17 07/17/18 Biotin 5 mg PO DAILY 07/17/18 07/17/18 Cholecalciferol [Vitamin D3] 1,000 unit PO DAILY 07/17/18 07/17/18 Melatonin 10 mg PO HS PRN 07/17/18 07/17/18 Multivitamin/Iron/Folic Acid 1 tab PO DAILY 07/17/18 07/17/18 [Centrum Adults Tablet] Plant Stanol Ayleen [Cholest Off] 450 mg PO DAILY 07/17/18 07/17/18 Topiramate [Topamax] 100 mg PO HS 07/17/18 07/17/18 Turmeric Root Extract [Turmeric] 500 mg PO DAILY 07/17/18 07/17/18 Previous Rx's Medication Instructions Recorded Cyclobenzaprine [Flexeril] 1 - 2 tab PO TID PRN #20 tablet 05/25/19 predniSONE 50 mg PO DAILY #4 tab 05/25/19 Hydrocodone/Acetaminophen [[place] 1 each PO Q6HR PRN #20 tab 06/23/19 5-325] Ondansetron Odt [Zofran ODT] 4 mg PO Q8HR PRN #10 tab 06/23/19 Sulfamethox-Tmp 800-160Mg [Bactrim 1 each PO Q12HR #6 tab 06/23/19 Ds] Tamsulosin [Flomax] 0.4 mg PO DAILY #14 cap 11/28/19 Allergies Allergy/AdvReac Type Severity Reaction Status Date / Time baclofen Allergy STOMACH Verified 06/23/19 03:45 PAIN chicken derived Allergy Anaphylaxis Verified 06/23/19 03:45 zonisamide [From Zonegran] Allergy Confusion Verified 06/23/19 03:45 Review of Systems ROS Statement: Those systems with pertinent positive or pertinent negative responses have been documented in the HPI. ROS Other: All systems not noted in ROS Statement are negative. Constitutional: Denies: fever, chills Respiratory: Denies: cough, dyspnea Cardiovascular: Denies: chest pain, palpitations, edema Gastrointestinal: Reports: as per HPI, abdominal pain, nausea, vomiting. Denies: diarrhea, constipation, hematemesis, melena Genitourinary: Reports: frequency. Denies: dysuria, hematuria, discharge Musculoskeletal: Denies: back pain Skin: Denies: rash Neurological: Denies: headache Past Medical History Past Medical History: Fibromyalgia, Hearing Disorder / Deafness, Thyroid Disorder Additional Past Medical History / Comment(s): knee pain, MIGRAINES back pain hypotension History of Any Multi-Drug Resistant Organisms: None Reported Past Surgical History: Hysterectomy, Orthopedic Surgery, Tubal Ligation Past Psychological History: Anxiety, Depression Smoking Status: Never smoker Past Alcohol Use History: None Reported Past Drug Use History: None Reported General Exam Limitations: no limitations General appearance: alert, in no apparent distress Head exam: Present: atraumatic, normocephalic Eye exam: Present: normal appearance. Absent: scleral icterus, conjunctival injection ENT exam: Present: normal oropharynx Neck exam: Present: normal inspection Respiratory exam: Present: normal lung sounds bilaterally. Absent: respiratory distress, wheezes, rales, rhonchi, stridor Cardiovascular Exam: Present: regular rate, normal rhythm, normal heart sounds. Absent: systolic murmur, diastolic murmur, rubs, gallop GI/Abdominal exam: Present: soft, normal bowel sounds. Absent: distended, tenderness, guarding, rebound, rigid Extremities exam: Present: normal inspection, normal capillary refill. Absent: pedal edema, calf tenderness Back exam: Present: normal inspection, CVA tenderness (L). Absent: CVA tenderness (R) Neurological exam: Present: alert Skin exam: Present: warm, dry, intact, normal color. Absent: rash Course Vital Signs 06/23/19 06/23/19 03:43 07:41 Temperature 98.4 F 98.2 F Pulse Rate 83 68 Respiratory 20 18 Rate Blood Pressure 112/77 111/77 O2 Sat by Pulse 97 98 Oximetry Medical Decision Making - Medical Decision Making Patient's 39-year-old woman with flank pain colicky in nature very suggestive of kidney stone. Her urine does seem consistent with this given the red blood cells present. I discussed performing computed tomography scan with the patient and she declines. She is feeling much better following medication here and does want to go home. We discussed the appropriate further care and follow-up as well as return parameters. - Lab Data Result diagrams: 06/23/19 04:53 06/23/19 07:02 Lab Results 06/23/19 06/23/19 06/23/19 Range/Units 04:53 07:02 07:02 WBC 8.0 (3.8-10.6) k/uL RBC 5.23 (3.80-5.40) m/uL Hgb 15.8 (11.4-16.0) gm/dL Hct 46.7 H (34.0-46.0) % MCV 89.2 (80.0-100.0) fL MCH 30.3 (25.0-35.0) pg MCHC 34.0 (31.0-37.0) g/dL RDW 12.5 (11.5-15.5) % Plt Count 220 (150-450) k/uL Neutrophils % 72 % Lymphocytes % 16 % Monocytes % 4 % Eosinophils % 6 % Basophils % 1 % Neutrophils # 5.8 (1.3-7.7) k/uL Lymphocytes # 1.3 (1.0-4.8) k/uL Monocytes # 0.3 (0-1.0) k/uL Eosinophils # 0.5 (0-0.7) k/uL Basophils # 0.0 (0-0.2) k/uL Sodium 144 (137-145) mmol/L Potassium 4.2 (3.5-5.1) mmol/L Chloride 110 H (98-107) mmol/L Carbon Dioxide 24 (22-30) mmol/L Anion Gap 10 mmol/L BUN 23 H (7-17) mg/dL Creatinine 1.15 H (0.52-1.04) mg/dL Est GFR (CKD-EPI)AfAm 70 (>60 ml/min/1.73 sqM) Est GFR (CKD-EPI)NonAf 61 (>60 ml/min/1.73 sqM) Glucose 102 H (74-99) mg/dL Calcium 9.7 (8.4-10.2) mg/dL Total Bilirubin 0.5 (0.2-1.3) mg/dL AST 20 (14-36) U/L ALT 20 (9-52) U/L Alkaline Phosphatase 75 (38-126) U/L Total Protein 7.5 (6.3-8.2) g/dL Albumin 4.6 (3.5-5.0) g/dL Amylase 59 (30-110) U/L Lipase 80 (23-300) U/L Urine Color Yellow Urine Appearance Cloudy H (Clear) Urine pH 7.0 (5.0-8.0) Ur Specific [place] 1.016 (1.001-1.035) Urine Protein Negative (Negative) Urine Glucose (UA) Negative (Negative) Urine Ketones Negative (Negative) Urine Blood Moderate H (Negative) Urine Nitrite Negative (Negative) Urine Bilirubin Negative (Negative) Urine Urobilinogen <2.0 (<2.0) mg/dL Ur Leukocyte Esterase Negative (Negative) Urine RBC 75 H (0-5) /hpf Urine WBC 8 H (0-5) /hpf Ur Squamous Epith Cells 14 H (0-4) /hpf Amorphous Sediment Rare H (None) /hpf Urine Bacteria Rare H (None) /hpf Hyaline Casts 1 (0-2) /lpf Urine Mucus Rare H (None) /hpf Disposition Clinical Impression: Kidney stone on left side Disposition: HOME SELF-CARE Condition: Good Instructions (If sedation given, give patient instructions): Kidney Stones (ED) Prescriptions: Sulfamethox-Tmp 800-160Mg [Bactrim Ds] 1 each PO Q12HR #6 tab Tamsulosin [Flomax] 0.4 mg PO DAILY #14 cap Hydrocodone/Acetaminophen [[place] 5-325] 1 each PO Q6HR PRN #20 tab PRN Reason: Pain Ondansetron Odt [Zofran ODT] 4 mg PO Q8HR PRN #10 tab PRN Reason: Nausea Is patient prescribed a controlled substance at d/c from ED?: Yes Referrals: Dona Yi DO [Primary Care Provider] - 1-2 days
[2019-06-23 05:47] LABS: Basophils % (A) 1 %; Eosinophils # (A) 0.5 k/uL (0-0.7); Eosinophils % (A) 6 %; HCT 46.7 % (34.0-46.0); HGB 15.8 gm/dL (11.4-16.0); Lymphocytes # (A) 1.3 k/uL (1.0-4.8); Lymphocytes % (A) 16 %; MCH 30.3 pg (25.0-35.0); MCV 89.2 fL (80.0-100.0); Mean Platelet Volume 6.3; Monocytes # (A) 0.3 k/uL (0-1.0); Monocytes % (A) 4 %; Neutrophils # (A) 5.8 k/uL (1.3-7.7); Neutrophils % (A) 72 %; Platelet Count 220 k/uL (150-450); RBC 5.23 m/uL (3.80-5.40); RDW 12.5 % (11.5-15.5)
[2019-06-23 07:18] LABS: Amorphous Sediment,Urine Rare /hpf; Appearance,Urine Cloudy (Clear); Bacteria,Urine Rare /hpf; Bilirubin,Urine Negative (Negative); Blood,Urine Moderate (Negative); Color,Urine Yellow; Glucose,Urine (UA) Negative (Negative); Hyaline Casts,Urine 1 /lpf (0-2); Ketones,Urine Negative (Negative); Leukocyte Esterase,Urine Negative (Negative); Mucus,Urine Rare /hpf; Nitrite,Urine Negative (Negative); Protein,Urine Negative (Negative); RBC,Urine 75 /hpf (0-5); Specific Gravity,Urine 1.016 (1.001-1.035); Squamous Epithelial Cell,Urine 14 /hpf (0-4); Urobilinogen,Urine <2.0 mg/dL (<2.0); WBC,Urine 8 /hpf (0-5)
[2019-06-23 07:24] LABS: Albumin 4.6 g/dL (3.5-5.0); Calcium 9.7 mg/dL (8.4-10.2); Potassium 4.2 mmol/L (3.5-5.1); Total Bilirubin 0.5 mg/dL (0.2-1.3); Total Protein 7.5 g/dL (6.3-8.2)
[2019-06-23 07:46] VITALS: PULSE 68; RESP 18; TEMP 98.2
[2019-06-23] MEDS ORDERED: SULFAMETHOX-TMP 800-160MG 1 EACH TAB PO STA (08:16)
[2019-06-23] MEDS ORDERED: TAMSULOSIN 0.4 MG CAP.ER.24H PO STA (08:16)
[2019-06-23 08:28] VITALS: BP 103/74
== END 2019-06-23 08:28 | disposition home or self-care (01) ==
LOC: EC 03:36
DX: N20.0 Calculus of kidney (principal); E07.9 Disorder of thyroid, unspecified; G43.909 Migraine, unspecified, not intractable, without status migrainosus; Z90.710 Acquired absence of both cervix and uterus; Z98.51 Tubal ligation status; Z53.29 Procedure and treatment not carried out because of patient's decision for other reasons; Z79.890 Hormone replacement therapy; Z79.899 Other long term (current) drug therapy; Z88.8 Allergy status to other drugs, medicaments and biological substances; Z91.018 Allergy to other foods
CPT/HCPCS: 36415; 80053; 81001; 82150; 83690; 85025; 96374; 99284

== ENCOUNTER 2019-07-30 21:04 | Emergency (ER) | payer MEDICAID, OTHER ==
[2019-07-30 21:16] VITALS: BP 110/76; PULSE 81; RESP 16; TEMP 97.9
--- NOTE | 2019-07-30 21:44 | XR ---
EXAMINATION TYPE: XR hand complete RT DATE OF EXAM: 07/30/2019 COMPARISON: NONE HISTORY: Pain TECHNIQUE: 3 views FINDINGS: Metacarpals appear intact. I see no fracture nor dislocation. Joint spaces are normal. IMPRESSION: Negative right hand exam. No fracture seen.
--- NOTE | 2019-07-30 21:54 | ED ---
Upper Extremity HPI - General Chief Complaint: Extremity Injury, Upper Stated Complaint: Hand injury Time Seen by Provider: 07/30/19 21:21 Source: patient Mode of arrival: ambulatory Limitations: no limitations - History of Present Illness Initial Comments: 39yo female presenting today for cc of right hand pain after punching wall. Patient punched wall few hours prior to arrival. patient states there is a bruise now. came to make sure it wasnt broken, denies wrist, elbow, shoulder pain or breaks in enirquez. Denies any other complaints. Denies assault or self defense. - Related Data Home Medications Medication Instructions Recorded Confirmed Aspirin/Acetaminophen/Caffeine 2 tab PO Q4H PRN 06/15/17 07/17/18 [Excedrin Migraine Caplet] Thyroid,Pork [[place] Thyroid] 90 mg PO HS 06/15/17 07/17/18 diphenhydrAMINE HCL [Benadryl] 25 - 75 mg PO HS PRN 06/15/17 07/17/18 Biotin 5 mg PO DAILY 07/17/18 07/17/18 Cholecalciferol [Vitamin D3] 1,000 unit PO DAILY 07/17/18 07/17/18 Melatonin 10 mg PO HS PRN 07/17/18 07/17/18 Multivitamin/Iron/Folic Acid 1 tab PO DAILY 07/17/18 07/17/18 [Centrum Adults Tablet] Plant Stanol Ayleen [Cholest Off] 450 mg PO DAILY 07/17/18 07/17/18 Topiramate [Topamax] 100 mg PO HS 07/17/18 07/17/18 Turmeric Root Extract [Turmeric] 500 mg PO DAILY 07/17/18 07/17/18 Previous Rx's Medication Instructions Recorded Cyclobenzaprine [Flexeril] 1 - 2 tab PO TID PRN #20 tablet 05/25/19 predniSONE 50 mg PO DAILY #4 tab 05/25/19 Hydrocodone/Acetaminophen [[place] 1 each PO Q6HR PRN #20 tab 06/23/19 5-325] Ondansetron Odt [Zofran ODT] 4 mg PO Q8HR PRN #10 tab 06/23/19 Sulfamethox-Tmp 800-160Mg [Bactrim 1 each PO Q12HR #6 tab 06/23/19 Ds] Tamsulosin [Flomax] 0.4 mg PO DAILY #14 cap 06/23/19 Allergies Allergy/AdvReac Type Severity Reaction Status Date / Time baclofen Allergy STOMACH Verified 07/30/19 21:14 PAIN chicken derived Allergy Anaphylaxis Verified 07/30/19 21:14 zonisamide [From Zonegran] Allergy Confusion Verified 07/30/19 21:14 Review of Systems ROS Statement: Those systems with pertinent positive or pertinent negative responses have been documented in the HPI. ROS Other: All systems not noted in ROS Statement are negative. Past Medical History Past Medical History: Fibromyalgia, Hearing Disorder / Deafness, Thyroid Disorder Additional Past Medical History / Comment(s): knee pain, MIGRAINES back pain hypotension History of Any Multi-Drug Resistant Organisms: None Reported Past Surgical History: Hysterectomy, Orthopedic Surgery, Tubal Ligation Past Psychological History: Anxiety, Depression Smoking Status: Never smoker Past Alcohol Use History: None Reported Past Drug Use History: None Reported General Exam - General Exam Comments Initial Comments: General: The patient is awake and alert, in no distress, and does not appear acutely ill. Eye: Pupils are equal, round and reactive to light, extra-ocular movements are intact. No nystagmus. There is normal conjunctiva bilaterally. No signs of icterus. Cardiovascular: There is a regular rate and rhythm. No murmur, rub or gallop is appreciated. Respiratory: Lungs are clear to auscultation, respirations are non-labored, breath sounds are equal. No wheezes, stridor, rales, or rhonchi. Musculoskeletal: ecchymosis at mcp joint of digits #2-5. Full ROM at MCP, DIP and PIP joints with full strenght no deformity. No breaks in skin. No snuffbox tenderness. Sensation intact. Radial and ulnar pulses equal bilaterally 2+. Neurological: A&O x 3. CN II-XII intact, There are no obvious motor or sensory deficits. Coordination appears grossly intact. Speech is normal. Skin: Skin is warm and dry and no rashes or lesions are noted. Psychiatric: Cooperative, appropriate mood & affect, normal judgment. Limitations: no limitations Course Vital Signs 07/30/19 21:09 Temperature 97.9 F Pulse Rate 81 Respiratory 16 Rate Blood Pressure 110/76 O2 Sat by Pulse 99 Oximetry Medical Decision Making - Medical Decision Making Hand pain after punching wall. Ecchymosis no deformity on exam. No fight bite or snuffbox tenderness. Xr (-). No tendon injury apparent on exam. Neurovascularly intact. Patient given RICe isntruction PCP f/u. Return parameters discussed patient agreeable and discharged appearing well. Disposition Clinical Impression: Hand injury, Right hand pain, Traumatic ecchymosis of right hand Disposition: HOME SELF-CARE Condition: Good Instructions (If sedation given, give patient instructions): Ecchymosis (ED) Additional Instructions: Please use medication as discussed. Please follow-up with family doctor in the next 2 days.. Please return to emergency room if the symptoms increase or worsen or for any other concerns. Is patient prescribed a controlled substance at d/c from ED?: No Referrals: Dona Yi DO [Primary Care Provider] - 1-2 days Time of Disposition: 21:54
== END 2019-07-30 22:07 | disposition home or self-care (01) ==
LOC: EC 21:04
DX: S60.221A Contusion of right hand, initial encounter (principal); E07.9 Disorder of thyroid, unspecified; Z79.899 Other long term (current) drug therapy; Z88.2 Allergy status to sulfonamides; Z88.8 Allergy status to other drugs, medicaments and biological substances; Z91.018 Allergy to other foods; W22.01XA Walked into wall, initial encounter
CPT/HCPCS: 99283

== ENCOUNTER → 2020-02-13 | Outpatient (CLI) | payer OTHER ==
--- NOTE | 2020-02-14 06:17 | MR ---
EXAMINATION TYPE: MR lumbar spine wo con DATE OF EXAM: 02/13/2020 COMPARISON: Lumbar spine x-ray May 25, 2019. HISTORY: Lumbago with sciatica, left side, chronic low back pain TECHNIQUE: Multiplanar, multisequence imaging of the lumbar spine is performed without IV contrast. FINDINGS: Sagittal images of the lumbar spine show vertebral body heights and alignment to remain sat isfactory. Disc desiccation L4-L5 level. Disc space heights are maintained. The conus medullaris is n ormal in position and signal ending at mid L1 level. The bone marrow signal intensity is within norm al limits. Axial images show the T12-L1 and L1-L2 level to appear within normal limits. Axial images at L2-L3 and the L3-L4 levels show mild/moderate facet degenerative changes bilaterally with ligamentum flavum hypertrophy. Axial images at L4-L5 level show mild/moderate facet degenerative changes bilaterally. There is mild broad-based posterior disc protrusion minimally effacing anterior thecal sac. Axial images at the L5-S1 levels mild facet degenerative changes bilaterally. There is occasional T2 hyperintense lesions scattered throughout the visualized portion of left kidne y felt to reflect simple thin-walled cyst, for reference 1.8 cm lesion seen posteriorly axial image 2 4. IMPRESSION: Mild multilevel degenerative changes mid to lower lumbar spine as detailed above. No larg e significant focal disc herniation seen to account for patient's left-sided radiculopathy type sympt oms.
== END | disposition home or self-care (01) ==
LOC: RADMRIMAIN 18:37
PROVIDERS: ATTEND Family Medicine
DX: M47.896 Other spondylosis, lumbar region (principal); M25.50 Pain in unspecified joint
CPT/HCPCS: 72148

== ENCOUNTER 2020-03-02 22:00 | Emergency (ER) | payer OTHER ==
[2020-03-02 22:06] VITALS: BP 130/82; PULSE 113; RESP 22; TEMP 98.7
[2020-03-02] MEDS ORDERED: GLUCAGON 1 MG/ML VIAL IVP STA (22:13)
[2020-03-02] MEDS ORDERED: DIAZEPAM 5 MG/ML 2 ML INJ IVP STA (22:13)
[2020-03-02] MEDS ORDERED: SODIUM CHLORIDE 0.9% 1,000 ML IV ONE (22:13)
--- NOTE | 2020-03-02 22:18 | ED ---
General Adult HPI - General Chief complaint: Skin/Abscess/Foreign Body Stated complaint: Food Stuck In Throat Time Seen by Provider: 03/02/20 22:05 Source: patient, family Mode of arrival: wheelchair Limitations: no limitations - History of Present Illness Initial comments: Patient is a 39-year-old female past medical history of thyroid disorder who pre sents to the emergency room with reported food bolus. Patient was eating a beef potpie approximately 5 minutes prior to hospital arrival when she started choking on it. Patient feels as if the piece got stuck in her throat. She attempted to take some Benadryl she was concerned that maybe she would have an ALLERGIC reaction. States that she cannot swallow the pills. Eyes sensation her airway is closing off her that she can't breathe. No hives. No history of food ALLERGIES in the past. Patient reports a chronic issues with difficulty swallowing. Has had previous barium swallows before however has never had an EGD. Patient states she normally can get the food to pass on its own however today was different. No concern for she has had a hysterectomy. Patient denies any chest pain. No other alleviating, Perceptin or modifying factors - Related Data Home Medications Medication Instructions Recorded Confirmed Aspirin/Acetaminophen/Caffeine 2 tab PO Q4H PRN 06/15/17 07/17/18 [Excedrin Migraine Caplet] Thyroid,Pork [[place] Thyroid] 90 mg PO HS 06/15/17 07/17/18 diphenhydrAMINE HCL [Benadryl] 25 - 75 mg PO HS PRN 06/15/17 07/17/18 Biotin 5 mg PO DAILY 07/17/18 07/17/18 Cholecalciferol [Vitamin D3] 1,000 unit PO DAILY 07/17/18 07/17/18 Melatonin 10 mg PO HS PRN 07/17/18 07/17/18 Multivitamin/Iron/Folic Acid 1 tab PO DAILY 07/17/18 07/17/18 [Centrum Adults Tablet] Plant Stanol Ayleen [Cholest Off] 450 mg PO DAILY 07/17/18 07/17/18 Topiramate [Topamax] 100 mg PO HS 07/17/18 07/17/18 Turmeric Root Extract [Turmeric] 500 mg PO DAILY 07/17/18 07/17/18 Previous Rx's Medication Instructions Recorded Cyclobenzaprine [Flexeril] 1 - 2 tab PO TID PRN #20 tablet 05/25/19 predniSONE 50 mg PO DAILY #4 tab 05/25/19 Hydrocodone/Acetaminophen [Gilead 1 each PO Q6HR PRN #20 tab 06/23/19 5-325] Ondansetron Odt [Zofran ODT] 4 mg PO Q8HR PRN #10 tab 06/23/19 Sulfamethox-Tmp 800-160Mg [Bactrim 1 each PO Q12HR #6 tab 06/23/19 Ds] Tamsulosin [Flomax] 0.4 mg PO DAILY #14 cap 06/23/19 Allergies Allergy/AdvReac Type Severity Reaction Status Date / Time baclofen Allergy STOMACH Verified 03/02/20 22:05 PAIN chicken derived Allergy Anaphylaxis Verified 03/02/20 22:05 zonisamide [From Zonegran] Allergy Confusion Verified 03/02/20 22:05 Review of Systems ROS Statement: Those systems with pertinent positive or pertinent negative responses have been documented in the HPI. ROS Other: All systems not noted in ROS Statement are negative. Past Medical History Past Medical History: Fibromyalgia, Hearing Disorder / Deafness, Thyroid Disorder Additional Past Medical History / Comment(s): knee pain, MIGRAINES back pain hypotension History of Any Multi-Drug Resistant Organisms: None Reported Past Surgical History: Hysterectomy, Orthopedic Surgery, Tubal Ligation Past Psychological History: Anxiety, Depression Smoking Status: Never smoker Past Alcohol Use History: None Reported Past Drug Use History: None Reported General Exam Limitations: no limitations General appearance: alert, other (mild distress, anxious, appears uncomfortable) Head exam: Present: atraumatic, normocephalic, normal inspection Eye exam: Present: normal appearance, PERRL, EOMI. Absent: scleral icterus, conjunctival injection, periorbital swelling ENT exam: Present: normal exam, mucous membranes moist Neck exam: Present: normal inspection, other (no drooling, trismus, stridor. Mild hoarseness. ). Absent: tenderness, meningismus, lymphadenopathy, thyromegaly Respiratory exam: Present: normal lung sounds bilaterally. Absent: respiratory distress, wheezes, rales, rhonchi, stridor Cardiovascular Exam: Present: normal rhythm, tachycardia Course Vital Signs 03/02/20 22:02 Temperature 98.7 F Pulse Rate 113 H Respiratory 22 Rate Blood Pressure 130/82 O2 Sat by Pulse 98 Oximetry Medical Decision Making - Medical Decision Making Upon arrival the patient is placed in trauma bay 1. A thorough history and physical exam is performed. Peripheral IV is established. The patient is given a liter bolus of normal saline, 1 g of glucagon and 5mg of Valium. Patient does feel the sensation like she needs to vomit the food up. She does have an episode of emesis and there is a large piece of beef in the emesis basin. Lizeth gould feels much improved at this time. She is requesting something to drink. Patient is able to hold water. She feels comfortable going home at this time. I did recommend the patient follow up with a GI doctor in regards to her symptoms. Return to the emergency room for any new or worsening symptoms per patient was in agreement with this and she is discharged home in stable condition Disposition Clinical Impression: Food impaction of esophagus Disposition: HOME SELF-CARE Condition: Stable Instructions (If sedation given, give patient instructions): Esophageal Foreign Body (ED) Additional Instructions: Please follow up with the GI doctor in regards to your difficulty swallowing. Return to the emergency room for new or worsening symptoms Is patient prescribed a controlled substance at d/c from ED?: No Referrals: Kenroy Yi MD [Primary Care Provider] - 1-2 days Salas Parker MD [STAFF PHYSICIAN] - 1-2 days Time of Disposition: 22:58
== END 2020-03-03 07:38 | disposition home or self-care (01) ==
LOC: EC 22:00
DX: T18.128A Food in esophagus causing other injury, initial encounter (principal); E07.9 Disorder of thyroid, unspecified; R00.0 Tachycardia, unspecified; G43.909 Migraine, unspecified, not intractable, without status migrainosus; Z79.899 Other long term (current) drug therapy; Z88.8 Allergy status to other drugs, medicaments and biological substances; Z91.018 Allergy to other foods; X58.XXXA Exposure to other specified factors, initial encounter
CPT/HCPCS: 99283; 96374; 96375; 96361; J1610; J3360

== ENCOUNTER 2020-03-22 09:49 | Day surgery (SDC) | payer OTHER ==
[2020-03-20 15:53] VITALS: BMI 25.9
[~2020-03-22 09:49] MED LIST: LACTATED RINGERS 1,000 ML IV SCH
[2020-03-22 10:30] VITALS: RESP 16; TEMP 97.4
[2020-03-22] MEDS ORDERED: LIDOCAINE 1% (10MG/ML) FOR IV START INTRADERMA ONE (10:34)
[2020-03-22] MEDS ORDERED: PROPOFOL 10 MG/ML 20 ML VIAL IV ONE (11:07)
--- NOTE | 2020-03-22 11:43 | P.PCN ---
Date of Procedure: 03/22/20 Description of Procedure: BRIEF HISTORY: Patient is a 40-year-old female presenting for outpatient EGD for evaluation of dysphagia. She reports long-standing history of dysphagia more frequent recently. Generally to pills and solid foods. No prior EGD. PROCEDURE PERFORMED: Esophagogastroduodenoscopy with biopsy. PREOPERATIVE DIAGNOSIS: Dysphagia, esophageal dysphagia. ESTIMATED BLOOD LOSS: Minimal. IV sedation per anesthesia. PROCEDURE: After informed consent was obtained, the patient was brought into the endoscopy unit. IV sedation was administered by Anesthesia under continuous monitoring. Initially the Olympus GIF-190 video endoscope was inserted into the mouth. Esophagus intubated without any difficulty. It was gradually advanced into the stomach and duodenum and carefully examined. The bulb and the second part of the duodenum appeared normal, with biopsies taken. The scope at this time was withdrawn to the stomach, adequately insufflated with air, and upon careful examination, mucosa of the antrum, body, cardia and the fundus appeared normal, except for some mild scattered erythema in the antrum body suggestive of mild gastritis with biopsies taken. The scope was then withdrawn into the esophagus. The GE junction was located at 39 cm from the incisors, with a 1 cm hiatal hernia noted. Biopsies taken at the GE junction. There was also a widely. Schatzki's ring in the distal esophagus which was sequentially dilated with a [id number] balloon dilator up to 15 mm and then 16.5 mm at which point superficial mucosal tearing was noted and no further dilation was performed. The esophagus appeared grossly normal there was however some linear furrowing and sequential rings suggestive of eosinophilic esophagitis with biopsies of the midesophagus taken. here were no erosions or ulcerations seen and the patient tolerated the procedure well. IMPRESSION: 1. Mild gastritis. 2. Small hiatal hernia. 3. Findings in the esophagus suggestive of eosinophilic esophagitis. 4. Biopsies of the duodenum, antrum body, GE junction and midesophagus. 5. Widely patent distal esophageal ring dilated with a [id number]-isv-rntky balloon dilator. RECOMMENDATIONS: The findings of this examination were discussed with the patient.. Okay to resume diet. Okay to resume medications. Would recommend continuing Protonix therapy. Would recommend following up in the GI clinic in 1-2 weeks for results of biopsies
[2020-03-22 12:13] VITALS: BP 102/58; PULSE 80
== END 2020-03-22 12:32 | disposition home or self-care (01) ==
LOC: ORWHC2ENDO 09:49
PROVIDERS: ATTEND Internal Medicine
DX: K22.2 Esophageal obstruction (principal); K44.9 Diaphragmatic hernia without obstruction or gangrene; K29.50 Unspecified chronic gastritis without bleeding; K21.9 Gastro-esophageal reflux disease without esophagitis; E07.9 Disorder of thyroid, unspecified; M79.7 Fibromyalgia; Z87.09 Personal history of other diseases of the respiratory system; Z90.710 Acquired absence of both cervix and uterus; Z98.890 Other specified postprocedural states; Z79.890 Hormone replacement therapy; Z79.899 Other long term (current) drug therapy; Z88.8 Allergy status to other drugs, medicaments and biological substances
CPT/HCPCS: 81025; 88305; 43239; 43249; J2704

== ENCOUNTER 2020-08-05 09:44 | Emergency (ER) | payer OTHER ==
[2020-08-05 09:55] VITALS: BP 108/74; PULSE 88; RESP 18; TEMP 98.4
--- NOTE | 2020-08-05 10:06 | ED ---
General Adult HPI - General Chief complaint: Skin/Abscess/Foreign Body Stated complaint: infection in thumbs Time Seen by Provider: 08/05/20 09:59 Source: patient, RN notes reviewed Mode of arrival: ambulatory Limitations: no limitations - History of Present Illness Initial comments: 40-year-old Female presents emergency Department chief complaint infection to her thumbs. Patient is primarily worse on her left first right. 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 Patient states that she's opened up some areas on her thumb in which his skin has become swollen, red and draining. No fevers or chills no paresthesias currently. Patient offers no complaints. - Related Data Home Medications Medication Instructions Recorded Confirmed Thyroid,Pork [[place] Thyroid] 90 mg PO DAILY 06/15/17 03/22/20 Topiramate [Topamax] 100 mg PO DAILY 07/17/18 03/22/20 Diclofenac Sodium [Voltaren Gel] 2 gram TOPICAL DAILY PRN 03/20/20 03/22/20 Lidocaine 5% Oint [Xylocaine 5% 1 applic TOPICAL DAILY PRN 03/20/20 03/22/20 Oint] Pantoprazole Sodium [Protonix] 40 mg PO DAILY 03/20/20 03/22/20 buPROPion SR [Wellbutrin Sr] 150 mg PO DAILY 03/20/20 03/22/20 Previous Rx's Medication Instructions Recorded Cephalexin [Keflex] 500 mg PO Q6HR #28 cap 08/05/20 Allergies Allergy/AdvReac Type Severity Reaction Status Date / Time baclofen Allergy STOMACH Verified 08/05/20 09:55 PAIN chicken derived Allergy Anaphylaxis Verified 08/05/20 09:55 zonisamide [From Zonegran] Allergy Confusion Verified 08/05/20 09:55 Review of Systems ROS Statement: Those systems with pertinent positive or pertinent negative responses have been documented in the HPI. ROS Other: All systems not noted in ROS Statement are negative. Past Medical History Past Medical History: Fibromyalgia, GERD/Reflux, Hearing Disorder / Deafness, Thyroid Disorder Additional Past Medical History / Comment(s): knee pain, MIGRAINES, back pain, hypotension, [place] R/T NERVE UNFORMED BABY. HAS BEEN HAVING FOOD/PILLS GET STUCK IN THROAT FOR PAST 4-5 YEARS AND SEEMS TO BE GETTING WORSE History of Any Multi-Drug Resistant Organisms: None Reported Past Surgical History: Hysterectomy, Orthopedic Surgery, Tubal Ligation Additional Past Surgical History / Comment(s): LT ELBOW POPPED BACK INTO PLACE 2008 POST DISLOCATION, Past Anesthesia/Blood Transfusion Reactions: Motion Sickness Past Psychological History: Anxiety, Depression Smoking Status: Never smoker Past Alcohol Use History: None Reported Past Drug Use History: None Reported - Past Family History Mother History Unknown: Yes Additional Family Medical History / Comment(s): NOT COMPLETELY SURE OF FAMILY HX. NO CONTACT WITH BIOLOGICAL FAMILY IN MANY YEARS General Exam Limitations: no limitations General appearance: alert, in no apparent distress Head exam: Present: atraumatic, normocephalic, normal inspection Respiratory exam: Present: normal lung sounds bilaterally. Absent: respiratory distress, wheezes, rales, rhonchi, stridor Cardiovascular Exam: Present: regular rate, normal rhythm, normal heart sounds. Absent: systolic murmur, diastolic murmur, rubs, gallop, clicks Extremities exam: Present: other (Left thumb there is erythema, noted open skin on the nail fold along with the proximal nail fold there is erythema, swelling. Right thumb small open area with minimal erythema) Course Vital Signs 08/05/20 09:48 Temperature 98.4 F Pulse Rate 88 Respiratory 18 Rate Blood Pressure 108/74 O2 Sat by Pulse 99 Oximetry Medical Decision Making - Medical Decision Making Patient has paronychia with open areas and erythema. Patient was started on oral antibiotics. Patient was advised to soak in warm water, keep clean and dry and follow-up for recheck. Disposition Clinical Impression: Paronychia Disposition: HOME SELF-CARE Condition: Stable Instructions (If sedation given, give patient instructions): Paronychia (ED) Additional Instructions: Please return to the Emergency Department if symptoms worsen or any other concerns. Prescriptions: Cephalexin [Keflex] 500 mg PO Q6HR #28 cap Is patient prescribed a controlled substance at d/c from ED?: No Referrals: Kenroy Yi MD [Primary Care Provider] - 1-2 days Time of Disposition: 10:05
== END 2020-08-05 10:13 | disposition home or self-care (01) ==
LOC: EC 09:44
DX: L03.011 Cellulitis of right finger (principal); F41.9 Anxiety disorder, unspecified; F32.9 Major depressive disorder, single episode, unspecified; M79.7 Fibromyalgia; K21.9 Gastro-esophageal reflux disease without esophagitis; E07.9 Disorder of thyroid, unspecified; Z79.899 Other long term (current) drug therapy; Z88.2 Allergy status to sulfonamides; Z88.8 Allergy status to other drugs, medicaments and biological substances; Z86.69 Personal history of other diseases of the nervous system and sense organs; Z90.710 Acquired absence of both cervix and uterus
CPT/HCPCS: 99282

== ENCOUNTER 2020-09-05 16:23 | Emergency (ER) | payer OTHER ==
[2020-09-05 16:45] VITALS: TEMP 98
--- NOTE | 2020-09-05 18:02 | CT ---
EXAMINATION TYPE: CT brain wo con DATE OF EXAM: 09/05/2020 COMPARISON: None available. HISTORY: headache dizziness confusion post blow to head CT DLP: 1066.4 mGycm. Automated Exposure Control for Dose Reduction was Utilized. TECHNIQUE: CT scan of the head is performed without contrast. FINDINGS: There is no acute intracranial hemorrhage, mass effect, or midline shift identified. The ventricles and sulci are within normal limits in size. The globes are intact and the visualized sin uses are clear. IMPRESSION: No acute intracranial hemorrhage, mass effect, or midline shift is seen.
[2020-09-05 18:09] VITALS: BP 100/58; PULSE 74; RESP 16
--- NOTE | 2020-09-05 18:14 | ED ---
Head Injury HPI - General Chief complaint: Head Injury Stated complaint: [facility] Head Injury Time Seen by Provider: 09/05/20 17:13 Source: patient Mode of arrival: wheelchair - History of Present Illness Initial comments: 40-year-old female presenting today for chief complaint of head injury. Patient sates on Thursday she had her head she states she had a goose egg the next day. Patient states since then she has had a headache at times dizziness and feels slightly forgetful. she statse that today she was misplacing her tools and continued to have a headache. Denies localized weakness sensation deficits visual changes vision loss double vision she denies it nausea vomiting chest pain shortness of breath she denies any speech changes she has a gait changes remaining review of systems negative upon arrival patient appears well nontoxic no acute distress she is alert and oriented 4 no apparent confusion - Related Data Home Medications Medication Instructions Recorded Confirmed Thyroid,Pork [[place] Thyroid] 90 mg PO DAILY 06/15/17 03/22/20 Topiramate [Topamax] 100 mg PO DAILY 07/17/18 03/22/20 Diclofenac Sodium [Voltaren Gel] 2 gram TOPICAL DAILY PRN 03/20/20 03/22/20 Lidocaine 5% Oint [Xylocaine 5% 1 applic TOPICAL DAILY PRN 03/20/20 03/22/20 Oint] Pantoprazole Sodium [Protonix] 40 mg PO DAILY 03/20/20 03/22/20 buPROPion SR [Wellbutrin Sr] 150 mg PO DAILY 03/20/20 03/22/20 Previous Rx's Medication Instructions Recorded Cephalexin [Keflex] 500 mg PO Q6HR #28 cap 08/05/20 Allergies/Adverse reactions: Allergies Allergy/AdvReac Type Severity Reaction Status Date / Time baclofen Allergy STOMACH Verified 08/05/20 09:55 PAIN chicken derived Allergy Anaphylaxis Verified 08/05/20 09:55 zonisamide [From Zonegran] Allergy Confusion Verified 08/05/20 09:55 Review of Systems ROS Statement: Those systems with pertinent positive or pertinent negative responses have been documented in the HPI. ROS Other: All systems not noted in ROS Statement are negative. Past Medical History Past Medical History: Fibromyalgia, GERD/Reflux, Hearing Disorder / Deafness, Thyroid Disorder Additional Past Medical History / Comment(s): knee pain, MIGRAINES, back pain, hypotension, [place] R/T NERVE UNFORMED BABY. HAS BEEN HAVING FOOD/PILLS GET STUCK IN THROAT FOR PAST 4-5 YEARS AND SEEMS TO BE GETTING WORSE History of Any Multi-Drug Resistant Organisms: None Reported Past Surgical History: Hysterectomy, Orthopedic Surgery, Tubal Ligation Additional Past Surgical History / Comment(s): LT ELBOW POPPED BACK INTO PLACE 2008 POST DISLOCATION, Past Anesthesia/Blood Transfusion Reactions: Motion Sickness Past Psychological History: Anxiety, Depression Smoking Status: Never smoker Past Alcohol Use History: None Reported Past Drug Use History: None Reported - Past Family History Mother History Unknown: Yes Additional Family Medical History / Comment(s): NOT COMPLETELY SURE OF FAMILY HX. NO CONTACT WITH BIOLOGICAL FAMILY IN MANY YEARS General Exam - General Exam Comments Initial Comments: General: The patient is awake and alert, in no distress Eye: +3 mm pupils are equal, round and reactive to light, extra-ocular movements are intact. No nystagmus. There is normal conjunctiva bilaterally. No signs of icterus. Ears, nose, mouth and throat: There are moist mucous membranes and no oral lesions. Neck: The neck is supple, there is no tenderness or JVD. Cardiovascular: There is a regular rate and rhythm. No murmur, rub or gallop is appreciated. Respiratory: Lungs are clear to auscultation, respirations are non-labored, breath sounds are equal. No wheezes, stridor, rales, or rhonchi. Gastrointestinal: Soft, non-distended, non-tender abdomen without masses or organomegaly noted. There is no rebound or guarding present. Musculoskeletal: Normal ROM, no tenderness. Strength 5/5. Sensation intact. Radial pulses equal bilaterally 2+. Neurological: A&O x 3. CN II-XII intact, memory intact to immediately, intermediate and snf recall. Able to follow simple verbal. Able to name a common object (pen). High quality, labial (pa) and lingual (la) speech. Low quality posterior pharynx/larynx (ga) voice sounds. Able to express general knowledge (days in a week). No hemineglect or inattention noted. Finger agnosia (-) and spatially oriented (identified L index finger touched R shoulder with L index finger).Light touch and temperature sensation present over the face, chest, abdomen, back, UE bilaterally, and LE bilaterally. Able to localize point during point localization b/l and extinction. No visible bulk atrophy, hypertro phy, fasciculations, or myoclonus of the UE or LE b/l. Full PROM in UE and LE b/l. Bilateral muscle strength 5/5 for the following muscles: deltoid, biceps, triceps, brachioradialis, wrist extensors/flexor, hip flexor, hip abductors/adductors, hamstrings, quadriceps, feet dorsiflexors/plantar flexors. Finger to nose, finger to the examiners finger, and heel to enriquez coordinated and accurate b/l. Coordinated and even demonstration of hand flip, finger to thumb, and toe tap b/l. (-) Babinski. +2 brachioradialis, triceps, patellar, and Achilles DTR b/l. (-) primitive reflexes. Gait is coordinated and even in stride. (-) pronator drift. No nuchal rigidity. Skin: Skin is warm and dry and no rashes or lesions are noted. Psychiatric: Cooperative, appropriate mood & affect, normal judgment. Course Vital Signs 09/05/20 09/05/20 16:41 18:08 Temperature 98 F Pulse Rate 71 74 Respiratory 20 16 Rate Blood Pressure 108/68 100/58 O2 Sat by Pulse 98 99 Oximetry Medical Decision Making - Medical Decision Making no contusions abrasions are appreciated or obvious signs of head trauma. No raccoon or Sargent sign. No focal neurological deficits no apparent confusion. Patient's CT of her brain is negative at this time feel she most likely has concussion given the described symptoms she is to follow-up with primary care before she is cleared for work she is to avoid activities of increased risk head injury. Patient discharged appearing well Disposition Clinical Impression: Concussion, Head injury Disposition: HOME SELF-CARE Condition: Good Instructions (If sedation given, give patient instructions): Concussion (ED) Additional Instructions: Please use medication as discussed. Please follow-up with family doctor in the next 2 daysor medical clearance back to work. He may not go back to work if you aren't symptomatic. 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 Please return to emergency room if the symptoms increase or worsen or for any other concerns. Is patient prescribed a controlled substance at d/c from ED?: No Referrals: Kenroy Yi MD [Primary Care Provider] - 1-2 days Time of Disposition: 18:14
== END 2020-09-05 18:25 | disposition home or self-care (01) ==
LOC: EC 16:23
DX: S06.0X9A Concussion with loss of consciousness of unspecified duration, initial encounter (principal); F41.9 Anxiety disorder, unspecified; F32.9 Major depressive disorder, single episode, unspecified; K21.9 Gastro-esophageal reflux disease without esophagitis; Z79.899 Other long term (current) drug therapy; Z88.2 Allergy status to sulfonamides; Z91.018 Allergy to other foods; Z88.8 Allergy status to other drugs, medicaments and biological substances; X58.XXXA Exposure to other specified factors, initial encounter; Y92.69 Other specified industrial and construction area as the place of occurrence of the external cause; Y99.0 Civilian activity done for income or pay
CPT/HCPCS: 70450; 99283

== ENCOUNTER 2020-09-28 13:46 | Emergency (ER) | payer OTHER ==
[2020-09-28 13:57] VITALS: RESP 16; TEMP 98
--- NOTE | 2020-09-28 14:14 | ED ---
Head Injury HPI - General Chief complaint: Head Injury Stated complaint: Head injury Time Seen by Provider: 09/28/20 13:59 Source: patient, RN notes reviewed Mode of arrival: ambulatory Limitations: no limitations - History of Present Illness Initial comments: 40-year-old female presents emergency Department via EMS chief complaint of head injury. Patient states she was at work states she was carrying cardboard out to Dr. states there is equipment [place] now passage and states that she struck her head. Patient states she does not remember much for this. Patient complains of severe headache dizziness just feels off. No blood thinners. Patient denies any loss conscious that she is aware of. Patient denies any current neck pain no other symptoms. - Related Data Home Medications Medication Instructions Recorded Confirmed Thyroid,Pork [[place] Thyroid] 90 mg PO DAILY 06/15/17 03/22/20 Topiramate [Topamax] 100 mg PO DAILY 07/17/18 03/22/20 Diclofenac Sodium [Voltaren Gel] 2 gram TOPICAL DAILY PRN 03/20/20 03/22/20 Lidocaine 5% Oint [Xylocaine 5% 1 applic TOPICAL DAILY PRN 03/20/20 03/22/20 Oint] Pantoprazole Sodium [Protonix] 40 mg PO DAILY 03/20/20 03/22/20 buPROPion SR [Wellbutrin Sr] 150 mg PO DAILY 03/20/20 03/22/20 Previous Rx's Medication Instructions Recorded Cephalexin [Keflex] 500 mg PO Q6HR #28 cap 08/05/20 Allergies/Adverse reactions: Allergies Allergy/AdvReac Type Severity Reaction Status Date / Time baclofen Allergy STOMACH Verified 09/28/20 13:57 PAIN chicken derived Allergy Anaphylaxis Verified 09/28/20 13:57 zonisamide [From Zonegran] Allergy Confusion Verified 09/28/20 13:57 Review of Systems ROS Statement: Those systems with pertinent positive or pertinent negative responses have been documented in the HPI. ROS Other: All systems not noted in ROS Statement are negative. Past Medical History Past Medical History: Fibromyalgia, GERD/Reflux, Hearing Disorder / Deafness, Thyroid Disorder Additional Past Medical History / Comment(s): knee pain, MIGRAINES, back pain, hypotension, [place] R/T NERVE UNFORMED BABY ,concussion. HAS BEEN HAVING FOOD/PILLS GET STUCK IN THROAT FOR PAST 4-5 YEARS AND SEEMS TO BE GETTING WORSE History of Any Multi-Drug Resistant Organisms: None Reported Past Surgical History: Hysterectomy, Orthopedic Surgery, Tubal Ligation Additional Past Surgical History / Comment(s): LT ELBOW POPPED BACK INTO PLACE 2008 POST DISLOCATION, Past Anesthesia/Blood Transfusion Reactions: Motion Sickness Past Psychological History: Anxiety, Depression Smoking Status: Never smoker Past Alcohol Use History: None Reported Past Drug Use History: None Reported - Past Family History Mother History Unknown: Yes Additional Family Medical History / Comment(s): NOT COMPLETELY SURE OF FAMILY HX. NO CONTACT WITH BIOLOGICAL FAMILY IN MANY YEARS General Exam Limitations: no limitations General appearance: alert, in no apparent distress Head exam: Present: atraumatic, normocephalic, normal inspection Eye exam: Present: normal appearance, PERRL, EOMI. Absent: scleral icterus, conjunctival injection, periorbital swelling ENT exam: Present: normal exam, normal oropharynx, mucous membranes moist, TM's normal bilaterally Neck exam: Present: normal inspection, full ROM. Absent: tenderness, meningismus, lymphadenopathy Respiratory exam: Present: normal lung sounds bilaterally. Absent: respiratory distress, wheezes, rales, rhonchi, stridor Cardiovascular Exam: Present: regular rate, normal rhythm, normal heart sounds. Absent: systolic murmur, diastolic murmur, rubs, gallop, clicks Neurological exam: Present: alert, oriented X3, CN II-XII intact, normal gait, reflexes normal, other (Finger to nose intact bilaterally without over shooting). Absent: motor sensory deficit Skin exam: Present: warm, dry, intact, normal color. Absent: rash Course Vital Signs 09/28/20 13:53 Temperature 98 F Pulse Rate 72 Respiratory 16 Rate Blood Pressure 107/69 O2 Sat by Pulse 100 Oximetry Medical Decision Making - Medical Decision Making 40-year-old female present for head injury CT was obtained secondary to patient's complaints symptoms. Patient has normal neuro exam CT is unremarkable. Patient discharged stable condition patient will follow-up with [facility] return parameters were discussed. Disposition Clinical Impression: Head injury Disposition: HOME SELF-CARE Condition: Stable Instructions (If sedation given, give patient instructions): Head Injury (ED) Additional Instructions: Please return to the Emergency Department if symptoms worsen or any other concerns. Is patient prescribed a controlled substance at d/c from ED?: No Referrals: Kenroy Yi MD [Primary Care Provider] - 1-2 days Time of Disposition: 15:34
[2020-09-28] MEDS ORDERED: ACETAMINOPHEN TAB 325 MG TAB PO STA (15:12)
--- NOTE | 2020-09-28 15:21 | CT ---
EXAMINATION TYPE: CT brain wo con DATE OF EXAM: 09/28/2020 COMPARISON: CT brain September 05, 2020. HISTORY: head injury, pain, dizziness CT DLP: 1099.4 mGycm. Automated Exposure Control for Dose Reduction was Utilized. TECHNIQUE: CT scan of the head is performed without contrast. FINDINGS: There is no acute intracranial hemorrhage, mass effect, or midline shift identified. The ventricles and sulci are within normal limits in size. Meneses-white matter differentiation is maintai mauri. The globes are intact and the visualized sinuses are clear. The calvarium is intact. IMPRESSION: No acute intracranial hemorrhage or midline shift is seen. No significant change from pr ior.
[2020-09-28 16:07] VITALS: BP 124/74; PULSE 78
== END 2020-09-28 16:06 | disposition home or self-care (01) ==
LOC: EC 13:46
DX: S09.90XA Unspecified injury of head, initial encounter (principal); K21.9 Gastro-esophageal reflux disease without esophagitis; F32.9 Major depressive disorder, single episode, unspecified; F41.9 Anxiety disorder, unspecified; M79.7 Fibromyalgia; Z79.1 Long term (current) use of non-steroidal anti-inflammatories (NSAID); Z88.2 Allergy status to sulfonamides; W22.8XXA Striking against or struck by other objects, initial encounter; Y92.89 Other specified places as the place of occurrence of the external cause; Y99.0 Civilian activity done for income or pay
CPT/HCPCS: 70450; 99284

== ENCOUNTER 2020-12-08 01:00 | Emergency (ER) | payer OTHER ==
[2020-12-08 01:08] VITALS: TEMP 97.9
[2020-12-08] MEDS ORDERED: IBUPROFEN 600 MG TAB PO STA (01:33)
--- NOTE | 2020-12-08 02:09 | XR ---
EXAM: XR Right Forearm, 2 Views CLINICAL HISTORY: ITS.REASON XR Reason: injury TECHNIQUE: Frontal and lateral views of the right forearm. COMPARISON: No relevant prior studies available. FINDINGS: Bones/joints: Unremarkable. No acute fracture. No dislocation. Soft tissues: Unremarkable. IMPRESSION: Normal right forearm x-rays.
--- NOTE | 2020-12-08 02:35 | ED ---
Upper Extremity HPI - General Chief Complaint: Extremity Injury, Upper Stated Complaint: Right elbow pain Time Seen by Provider: 12/08/20 01:25 Source: patient Mode of arrival: ambulatory Limitations: no limitations - History of Present Illness Initial Comments: This patient is a 40-year-old woman who presents with complaint of pain to the right elbow and forearm that came on after working. She states she had been moving a lot of parts. There was no direct trauma to the area. No weakness or numbness distal. The pain seems he made worse with moving the arm, especially with full extension of the forearm. Complaint: Injury to:: right, elbow, forearm -: hour(s) Other Extremity Injury: Elbow: Right, Forearm: Right Other Injuries: none Handedness: right Place: work Improves With: immobilization Worsens With: movement of extremity Associated Symptoms: denies other symptoms - Related Data Home Medications Medication Instructions Recorded Confirmed Thyroid,Pork [[place] Thyroid] 90 mg PO DAILY 06/15/17 03/22/20 Topiramate [Topamax] 100 mg PO DAILY 07/17/18 03/22/20 Diclofenac Sodium [Voltaren Gel] 2 gram TOPICAL DAILY PRN 03/20/20 03/22/20 Lidocaine 5% Oint [Xylocaine 5% 1 applic TOPICAL DAILY PRN 03/20/20 03/22/20 Oint] Pantoprazole Sodium [Protonix] 40 mg PO DAILY 03/20/20 03/22/20 buPROPion SR [Wellbutrin Sr] 150 mg PO DAILY 03/20/20 03/22/20 Previous Rx's Medication Instructions Recorded Cephalexin [Keflex] 500 mg PO Q6HR #28 cap 08/05/20 Ibuprofen [Motrin] 600 mg PO Q8HR PRN #20 tab 12/08/20 Allergies Allergy/AdvReac Type Severity Reaction Status Date / Time baclofen Allergy STOMACH Verified 12/08/20 01:04 PAIN chicken derived Allergy Anaphylaxis Verified 12/08/20 01:04 zonisamide [From Zonegran] Allergy Confusion Verified 12/08/20 01:04 Review of Systems ROS Statement: Those systems with pertinent positive or pertinent negative responses have been documented in the HPI. ROS Other: All systems not noted in ROS Statement are negative. Constitutional: Denies: fever, chills Respiratory: Denies: cough, dyspnea Cardiovascular: Denies: chest pain Musculoskeletal: Reports: as per HPI, arthralgia, myalgia Skin: Denies: rash Neurological: Denies: weakness, numbness, paresthesias Past Medical History Past Medical History: Fibromyalgia, GERD/Reflux, Hearing Disorder / Deafness, Thyroid Disorder Additional Past Medical History / Comment(s): knee pain, MIGRAINES, back pain, hypotension, [place] R/T NERVE UNFORMED BABY ,concussion. HAS BEEN HAVING FOOD/PILLS GET STUCK IN THROAT FOR PAST 4-5 YEARS AND SEEMS TO BE GETTING WORSE History of Any Multi-Drug Resistant Organisms: None Reported Past Surgical History: Hysterectomy, Orthopedic Surgery, Tubal Ligation Additional Past Surgical History / Comment(s): LT ELBOW POPPED BACK INTO PLACE 2008 POST DISLOCATION, Past Anesthesia/Blood Transfusion Reactions: Motion Sickness Past Psychological History: Anxiety, Depression Smoking Status: Never smoker Past Alcohol Use History: None Reported Past Drug Use History: None Reported - Past Family History Mother History Unknown: Yes Additional Family Medical History / Comment(s): NOT COMPLETELY SURE OF FAMILY HX. NO CONTACT WITH BIOLOGICAL FAMILY IN MANY YEARS General Exam Limitations: no limitations General appearance: alert, in no apparent distress Head exam: Present: atraumatic, normocephalic Cardiovascular Exam: Present: other (Radial and ulnar pulses are normal. Capillary refill normal) Neurological exam: Present: alert. Absent: motor sensory deficit Skin exam: Present: warm, dry, intact, normal color. Absent: rash Course Vital Signs 12/08/20 12/08/20 01:04 02:54 Temperature 97.9 F Pulse Rate 94 87 Respiratory 18 14 Rate Blood Pressure 110/77 99/66 O2 Sat by Pulse 98 96 Oximetry Disposition Clinical Impression: Lateral epicondylitis of right elbow Disposition: HOME SELF-CARE Condition: Good Instructions (If sedation given, give patient instructions): Tennis Elbow (ED) Prescriptions: Ibuprofen [Motrin] 600 mg PO Q8HR PRN #20 tab PRN Reason: Pain Is patient prescribed a controlled substance at d/c from ED?: No Referrals: Kenroy Yi MD [Primary Care Provider] - 1-2 days
[2020-12-08 02:56] VITALS: BP 99/66; PULSE 87; RESP 14
== END 2020-12-08 03:11 | disposition home or self-care (01) ==
LOC: EC 01:00
DX: M77.11 Lateral epicondylitis, right elbow (principal); M79.7 Fibromyalgia; K21.9 Gastro-esophageal reflux disease without esophagitis; E07.9 Disorder of thyroid, unspecified; F32.9 Major depressive disorder, single episode, unspecified; F41.9 Anxiety disorder, unspecified; Z90.710 Acquired absence of both cervix and uterus; Z98.51 Tubal ligation status

== ENCOUNTER 2021-01-27 09:29 | Emergency (ER) | payer BC, OTHER ==
[2021-01-27 09:33] VITALS: BP 100/68; PULSE 85; RESP 16; TEMP 98.4
--- NOTE | 2021-01-27 10:28 | ED ---
Upper Extremity HPI - General Chief Complaint: Extremity Injury, Upper Stated Complaint: wrist injury Time Seen by Provider: 01/27/21 09:38 Source: patient, RN notes reviewed Mode of arrival: ambulatory Limitations: no limitations - History of Present Illness Initial Comments: 40-year-old female presents emergency Department with chief complaint of left wrist pain. Patient states she tripped earlier today states that she started having pain on Thursday of her left wrist. Patient states it's still not improving she is concerned about possible fracture no paresthesias. Patient states she is ambidextrous it will not status his right or left. Patient denies any paresthesias no other injuries are bothering her now. - Related Data Home Medications Medication Instructions Recorded Confirmed Thyroid,Pork [[place] Thyroid] 90 mg PO DAILY 06/15/17 03/22/20 Topiramate [Topamax] 100 mg PO DAILY 07/17/18 03/22/20 Diclofenac Sodium [Voltaren Gel] 2 gram TOPICAL DAILY PRN 03/20/20 03/22/20 Lidocaine 5% Oint [Xylocaine 5% 1 applic TOPICAL DAILY PRN 03/20/20 03/22/20 Oint] Pantoprazole Sodium [Protonix] 40 mg PO DAILY 03/20/20 03/22/20 buPROPion SR [Wellbutrin Sr] 150 mg PO DAILY 03/20/20 03/22/20 Previous Rx's Medication Instructions Recorded Cephalexin [Keflex] 500 mg PO Q6HR #28 cap 08/05/20 Ibuprofen [Motrin] 600 mg PO Q8HR PRN #20 tab 12/08/20 Ibuprofen [Motrin] 600 mg PO Q8HR PRN #20 tab 01/27/21 Allergies Allergy/AdvReac Type Severity Reaction Status Date / Time baclofen Allergy STOMACH Verified 01/27/21 09:33 PAIN chicken derived Allergy Anaphylaxis Verified 01/27/21 09:33 zonisamide [From Zonegran] Allergy Confusion Verified 01/27/21 09:33 Review of Systems ROS Statement: Those systems with pertinent positive or pertinent negative responses have been documented in the HPI. ROS Other: All systems not noted in ROS Statement are negative. Past Medical History Past Medical History: Fibromyalgia, GERD/Reflux, Hearing Disorder / Deafness, Thyroid Disorder Additional Past Medical History / Comment(s): knee pain, MIGRAINES, back pain, hypotension, [place] R/T NERVE UNFORMED BABY History of Any Multi-Drug Resistant Organisms: None Reported Past Surgical History: Hysterectomy, Orthopedic Surgery, Tubal Ligation Additional Past Surgical History / Comment(s): LT ELBOW POPPED BACK INTO PLACE 2008 POST DISLOCATION, Past Anesthesia/Blood Transfusion Reactions: Motion Sickness Past Psychological History: Anxiety, Depression Smoking Status: Never smoker Past Alcohol Use History: None Reported Past Drug Use History: None Reported - Past Family History Mother History Unknown: Yes Additional Family Medical History / Comment(s): NOT COMPLETELY SURE OF FAMILY HX. NO CONTACT WITH BIOLOGICAL FAMILY IN MANY YEARS General Exam Limitations: no limitations General appearance: alert, in no apparent distress Head exam: Present: atraumatic, normocephalic, normal inspection Respiratory exam: Present: normal lung sounds bilaterally. Absent: respiratory distress, wheezes, rales, rhonchi, stridor Cardiovascular Exam: Present: regular rate, normal rhythm, normal heart sounds. Absent: systolic murmur, diastolic murmur, rubs, gallop, clicks Extremities exam: Present: other (Left wrist there is mild tenderness in the dis odalis radius and ulnar region, normocephalicNeurovascular intact.) Course Vital Signs 01/27/21 09:30 Temperature 98.4 F Pulse Rate 85 Respiratory 16 Rate Blood Pressure 100/68 O2 Sat by Pulse 99 Oximetry Medical Decision Making - Medical Decision Making X-ray was reviewed and read as no obvious acute fracture. Patient most likely has left wrist sprain. Patient continue to rest ice elevation and brace will follow-up with orthopedics if no improvement. Disposition Clinical Impression: Left wrist sprain Disposition: HOME SELF-CARE Condition: Stable Instructions (If sedation given, give patient instructions): Wrist Injury (ED) Additional Instructions: Please return to the Emergency Department if symptoms worsen or any other clay rns. Prescriptions: Ibuprofen [Motrin] 600 mg PO Q8HR PRN #20 tab PRN Reason: Pain Is patient prescribed a controlled substance at d/c from ED?: No Referrals: Kenroy Yi MD [Primary Care Provider] - 1-2 days Rito Reddy DO [Doctor of Osteopathic Medicine] - 1-2 days Time of Disposition: 10:52
--- NOTE | 2021-01-27 11:39 | XR ---
EXAMINATION TYPE: XR wrist complete LT DATE OF EXAM: 01/27/2021 COMPARISON: NONE HISTORY: Left wrist pain TECHNIQUE: Multiple radiographs of the left wrist FINDINGS AND IMPRESSION: No acute osseous, articular or soft tissue abnormality seen.
== END 2021-01-27 11:22 | disposition home or self-care (01) ==
LOC: EC 09:29
DX: S63.502A Unspecified sprain of left wrist, initial encounter (principal); W18.40XA Slipping, tripping and stumbling without falling, unspecified, initial encounter

== ENCOUNTER → 2021-02-08 | Outpatient (CLI) | payer BC ==
[2021-02-08 19:02] LABS: HCT 44.5 % (37.2-46.3); HGB 15.3 g/dL (12.0-15.0); MCH 30.4 pg (27.0-32.0); MCHC 34.4 g/dL (32.0-37.0); MCV 88.5 fL (80.0-97.0); Mean Platelet Volume 9.8 fL (9.5-12.2); Platelet Count 197 X 10*3/uL (140-440); RBC 5.03 X 10*6/uL (4.10-5.20); RDW 12.5 % (11.5-14.5); WBC 6.25 X 10*3/uL (4.50-10.00)
[2021-02-09 05:12] LABS: African American GFR (CKD) 73.2 (60.0-200.0); Albumin 4.5 g/dL (3.80-4.90); Albumin/Globulin Ratio 1.8 (1.60-3.17); Anion Gap 7.4 mmol/L (4.00-12.00); BUN/Creat Ratio 19.09 Ratio (12.00-20.00); Calcium 8.8 mg/dL (8.7-10.3); Carbon Dioxide 23.6 mmol/L (21.6-31.8); Globulin 2.5 g/dL (1.6-3.3); Non-African American GFR(CKD) 63.2 (60.0-200.0); Potassium 4.2 mmol/L (3.5-5.5); Total Bilirubin 0.4 mg/dL (0.2-1.2)
[2021-02-09 05:27] LABS: T4, Free (Free Thyroxine) 0.7 ng/dL (0.80-1.80)
== END | disposition home or self-care (01) ==
LOC: LABWHC1 13:33
PROVIDERS: ATTEND Family Medicine
DX: Z77.018 Contact with and (suspected) exposure to other hazardous metals (principal); E55.9 Vitamin D deficiency, unspecified; F39 Unspecified mood [affective] disorder; R51.9 Headache, unspecified; Z82.0 Family history of epilepsy and other diseases of the nervous system
CPT/HCPCS: 36415; 80053; 82306; 83655; 84439; 84443; 84481; 85027

== ENCOUNTER 2021-02-26 20:59 | Emergency (ER) | payer OTHER ==
[2021-02-26 21:14] VITALS: BP 100/71; PULSE 94; RESP 18; TEMP 98.2
--- NOTE | 2021-02-26 21:14 | ED ---
General Adult HPI - General Stated complaint: [facility]-Shoulder pain - History of Present Illness Initial comments: 40-year-old female presents emergency Department with chief complaint of right shoulder pain. Patient reports incident occurred about 2 hours prior to arrival. Patient states her fell into her her shoulder. States mostly the pain is located only right shoulder without any radiation. Pain worse with movement.. She reports pain is mostly along the anterior deltoid. Denies any paresthesias or weakness to rest the hand. States the pain is 8/10, sharp. Brief exam: Anterior deltoid tenderness. Sensation intact to her right arm. Limited range of motion with abduction and flexion of the right shoulder. - Related Data Home Medications Medication Instructions Recorded Confirmed Thyroid,Pork [[place] Thyroid] 90 mg PO DAILY 06/15/17 03/22/20 Topiramate [Topamax] 100 mg PO DAILY 07/17/18 03/22/20 Diclofenac Sodium [Voltaren Gel] 2 gram TOPICAL DAILY PRN 03/20/20 03/22/20 Lidocaine 5% Oint [Xylocaine 5% 1 applic TOPICAL DAILY PRN 03/20/20 03/22/20 Oint] Pantoprazole Sodium [Protonix] 40 mg PO DAILY 03/20/20 03/22/20 buPROPion SR [Wellbutrin Sr] 150 mg PO DAILY 03/20/20 03/22/20 Previous Rx's Medication Instructions Recorded Cephalexin [Keflex] 500 mg PO Q6HR #28 cap 08/05/20 Ibuprofen [Motrin] 600 mg PO Q8HR PRN #20 tab 12/08/20 Ibuprofen [Motrin] 600 mg PO Q8HR PRN #20 tab 01/27/21 Allergies Allergy/AdvReac Type Severity Reaction Status Date / Time baclofen Allergy STOMACH Verified 02/26/21 21:14 PAIN chicken derived Allergy Anaphylaxis Verified 02/26/21 21:14 zonisamide [From Zonegran] Allergy Confusion Verified 02/26/21 21:14 Review of Systems ROS Statement: Those systems with pertinent positive or pertinent negative responses have been documented in the HPI. ROS Other: All systems not noted in ROS Statement are negative. Past Medical History Past Medical History: Fibromyalgia, GERD/Reflux, Hearing Disorder / Deafness, Thyroid Disorder Additional Past Medical History / Comment(s): knee pain, MIGRAINES, back pain, hypotension, [place] R/T NERVE UNFORMED BABY History of Any Multi-Drug Resistant Organisms: None Reported Past Surgical History: Hysterectomy, Orthopedic Surgery, Tubal Ligation Additional Past Surgical History / Comment(s): LT ELBOW POPPED BACK INTO PLACE 2008 POST DISLOCATION, Past Anesthesia/Blood Transfusion Reactions: Motion Sickness Past Psychological History: Anxiety, Depression Smoking Status: Never smoker Past Alcohol Use History: None Reported Past Drug Use History: None Reported - Past Family History Mother History Unknown: Yes Additional Family Medical History / Comment(s): NOT COMPLETELY SURE OF FAMILY HX. NO CONTACT WITH BIOLOGICAL FAMILY IN MANY YEARS General Exam Limitations: no limitations General appearance: alert, in no apparent distress Head exam: Present: atraumatic, normocephalic, normal inspection Eye exam: Present: normal appearance, PERRL, EOMI Pupils: Present: normal accommodation ENT exam: Present: normal exam, normal oropharynx, mucous membranes moist Neck exam: Present: normal inspection, full ROM. Absent: tenderness, lymphade nopathy Respiratory exam: Present: normal lung sounds bilaterally. Absent: respiratory distress Cardiovascular Exam: Present: regular rate, normal rhythm, normal heart sounds. Absent: systolic murmur Extremities exam: Present: normal inspection, tenderness (Anterior deltoid tenderness), normal capillary refill, other (Positive empty can test. Negative Brooks.). Absent: full ROM (Limited range of motion with abduction to the right shoulder), pedal edema, joint swelling, calf tenderness Back exam: Present: normal inspection, full ROM. Absent: tenderness Neurological exam: Present: alert, oriented X3 Psychiatric exam: Present: normal affect, normal mood Skin exam: Present: warm, dry, intact, normal color Course Vital Signs 02/26/21 21:11 Temperature 98.2 F Pulse Rate 94 Respiratory 18 Rate Blood Pressure 100/71 O2 Sat by Pulse 98 Oximetry Medical Decision Making - Medical Decision Making 40-year-old female presents to the emergency department with a chief complaint right shoulder pain. She is neurovascularly intact. I suspect a possible injury to the rotator cuff. X-rays unremarkable. Sling will be applied. Advised to follow-up with disability specialist. Case discussed with physician. Disposition Clinical Impression: Right shoulder injury Disposition: HOME SELF-CARE Condition: Stable Instructions (If sedation given, give patient instructions): Shoulder Sprain (ED) Additional Instructions: follow-up with disability specialist. Return to emergency department if symptoms worsen. Is patient prescribed a controlled substance at d/c from ED?: No Referrals: Kenroy Yi MD [Primary Care Provider] - 1-2 days Jose Raul Oconnell DO [Doctor of Osteopathic Medicine] - 1-2 days Time of Disposition: 22:22
--- NOTE | 2021-02-26 21:34 | XR ---
EXAMINATION TYPE: XR shoulder complete RT DATE OF EXAM: 02/26/2021 COMPARISON: NONE HISTORY: Pain TECHNIQUE: 3 views FINDINGS: There is no fracture nor dislocation. Joint spaces are normal. Soft tissues appear normal. IMPRESSION: Normal right shoulder exam
== END 2021-02-26 22:46 | disposition home or self-care (01) ==
LOC: EC 20:59
DX: S49.91XA Unspecified injury of right shoulder and upper arm, initial encounter (principal); G43.909 Migraine, unspecified, not intractable, without status migrainosus; M79.7 Fibromyalgia; F32.9 Major depressive disorder, single episode, unspecified; F41.9 Anxiety disorder, unspecified; W50.0XXA Accidental hit or strike by another person, initial encounter
CPT/HCPCS: 99283

== ENCOUNTER 2021-06-13 04:31 | Emergency (ER) | payer MEDICAID, OTHER ==
[2021-06-13 04:43] VITALS: BP 112/70; PULSE 90; RESP 22; TEMP 99
--- NOTE | 2021-06-13 06:06 | ED ---
Skin/Abscess/FB HPI - General Chief complaint: Skin/Abscess/Foreign Body Stated complaint: RT knuckle infection Time Seen by Provider: 06/13/21 04:49 Source: patient, family Mode of arrival: ambulatory Limitations: no limitations - History of Present Illness complaint: abscess/boil -: days(s) Tetanus Up to Date: yes Location: R hand Severity: mild Improves with: none Worsens with: none Context: none Associated symptoms: denies other symptoms Treatments Prior to Arrival: none - Related Data Home Medications Medication Instructions Recorded Confirmed Thyroid,Pork [[place] Thyroid] 90 mg PO DAILY 06/15/17 03/22/20 Topiramate [Topamax] 100 mg PO DAILY 07/17/18 03/22/20 Diclofenac Sodium [Voltaren Gel] 2 gram TOPICAL DAILY PRN 03/20/20 03/22/20 Lidocaine 5% Oint [Xylocaine 5% 1 applic TOPICAL DAILY PRN 03/20/20 03/22/20 Oint] Pantoprazole Sodium [Protonix] 40 mg PO DAILY 03/20/20 03/22/20 buPROPion SR [Wellbutrin Sr] 150 mg PO DAILY 03/20/20 03/22/20 Previous Rx's Medication Instructions Recorded Cephalexin [Keflex] 500 mg PO Q6HR #28 cap 08/05/20 Ibuprofen [Motrin] 600 mg PO Q8HR PRN #20 tab 12/08/20 Ibuprofen [Motrin] 600 mg PO Q8HR PRN #20 tab 01/27/21 Ibuprofen [Motrin] 600 mg PO Q8HR PRN #20 tab 06/13/21 Sulfamethox-Tmp 800-160Mg [Bactrim 1 each PO Q12HR #14 tab 06/13/21 Ds] Allergies Allergy/AdvReac Type Severity Reaction Status Date / Time aripiprazole [From Abilify] Allergy Unknown Verified 06/13/21 04:43 baclofen Allergy STOMACH Verified 06/13/21 04:42 PAIN chicken derived Allergy Anaphylaxis Verified 06/13/21 04:42 zonisamide [From Zonegran] Allergy Confusion Verified 06/13/21 04:42 Review of Systems ROS Statement: Those systems with pertinent positive or pertinent negative responses have been documented in the HPI. ROS Other: All systems not noted in ROS Statement are negative. Constitutional: Denies: fever, chills Skin: Reports: as per HPI, lesions Neurological: Denies: weakness, numbness, paresthesias Past Medical History Past Medical History: Fibromyalgia, GERD/Reflux, Hearing Disorder / Deafness, Thyroid Disorder Additional Past Medical History / Comment(s): knee pain, MIGRAINES, back pain, hypotension, [place] R/T NERVE UNFORMED BABY History of Any Multi-Drug Resistant Organisms: None Reported Past Surgical History: Hysterectomy, Orthopedic Surgery, Tubal Ligation Additional Past Surgical History / Comment(s): LT ELBOW POPPED BACK INTO PLACE 2008 POST DISLOCATION, Past Anesthesia/Blood Transfusion Reactions: Motion Sickness Past Psychological History: Anxiety, Depression Smoking Status: Never smoker Past Alcohol Use History: None Reported Past Drug Use History: None Reported - Past Family History Mother History Unknown: Yes Additional Family Medical History / Comment(s): NOT COMPLETELY SURE OF FAMILY HX. NO CONTACT WITH BIOLOGICAL FAMILY IN MANY YEARS General Exam Limitations: no limitations General appearance: alert, in no apparent distress Extremities exam: Present: other (There does not appear to be any deep involvement. Range of motion normal. No deep tenderness.) Skin exam: Present: warm, dry, intact, other (Small pustule overlying the right third PIP joint.). Absent: rash Course Vital Signs 06/13/21 04:38 Temperature 99 F Pulse Rate 90 Respiratory 22 Rate Blood Pressure 112/70 O2 Sat by Pulse 99 Oximetry Medical Decision Making - Medical Decision Making Patient's 41-year-old woman here with pustule to the right third digit. I did braden with 19-gauge needle. Obtained small amount of purulent drainage. Patient then soaked hand in antiseptic solution. Discussed appropriate further care and follow-up. Disposition Clinical Impression: Skin pustule Disposition: HOME SELF-CARE Condition: Good Instructions (If sedation given, give patient instructions): Abscess Incision and Drainage (DC) Prescriptions: Sulfamethox-Tmp 800-160Mg [Bactrim Ds] 1 each PO Q12HR #14 tab Ibuprofen [Motrin] 600 mg PO Q8HR PRN #20 tab PRN Reason: Pain Is patient prescribed a controlled substance at d/c from ED?: No Referrals: Kenroy Yi MD [Primary Care Provider] - 1-2 days
== END 2021-06-13 06:59 | disposition home or self-care (01) ==
LOC: EC 04:31
DX: L08.9 Local infection of the skin and subcutaneous tissue, unspecified (principal); M79.7 Fibromyalgia; K21.9 Gastro-esophageal reflux disease without esophagitis; E07.9 Disorder of thyroid, unspecified; F41.9 Anxiety disorder, unspecified; F32.A Depression, unspecified; Z88.1 Allergy status to other antibiotic agents; Z90.710 Acquired absence of both cervix and uterus; Z98.51 Tubal ligation status
CPT/HCPCS: 99282

== ENCOUNTER 2021-06-30 18:18 | Emergency (ER) | payer MEDICAID, OTHER ==
[2021-06-30 18:23] VITALS: PULSE 86; RESP 16; TEMP 97.9
[2021-06-30] MEDS ORDERED: ACET/COD 300 MG/30 MG STARTER PACK 6 TAB BTL PO STA (18:29)
[2021-06-30] MEDS ORDERED: KETOROLAC 30 MG/ML 1 ML VIAL IM STA (18:29)
--- NOTE | 2021-06-30 18:43 | ED ---
Lower Extremity Injury HPI - General Chief Complaint: Extremity Injury, Lower Stated Complaint: IHS-ankle injury Time Seen by Provider: 06/30/21 18:25 Source: patient Mode of arrival: wheelchair Limitations: no limitations - History of Present Illness Initial Comments: 41-year-old female patient presents the emergency department today for evaluation of right ankle and foot pain. Patient states around 9:00 this morning she stepped down off of the palate caught her heel and twisted her ankle. States she had increased pain and swelling throughout the day. States she did take ibuprofen at home but it seemed to worsen her pain so she came in for further evaluation. She denies numbness or tingling to the foot. Denies previous injury to this ankle. Denies any knee pain. Denies any other injuries or concerns. - Related Data Home Medications Medication Instructions Recorded Confirmed Cyclobenzaprine [Flexeril] 5 mg PO BID PRN 06/30/21 06/30/21 Escitalopram Oxalate [Lexapro] 20 mg PO HS 06/30/21 06/30/21 Magnesium 200 mg PO DAILY 06/30/21 06/30/21 Montelukast [Singulair] 10 mg PO HS 06/30/21 06/30/21 Omeprazole 40 mg PO DAILY 06/30/21 06/30/21 Thyroid,Pork [[employer] [facility] Thyroid] 90 mg PO DAILY 06/30/21 06/30/21 Topiramate [Topiramate ER] 150 mg PO DAILY 06/30/21 06/30/21 buPROPion XL [Wellbutrin XL] 150 mg PO DAILY 06/30/21 06/30/21 Allergies Allergy/AdvReac Type Severity Reaction Status Date / Time aripiprazole [From Abilify] Allergy Unknown Verified 06/30/21 18:23 baclofen Allergy STOMACH Verified 06/30/21 18:23 PAIN chicken derived Allergy Anaphylaxis Verified 06/30/21 18:23 zonisamide [From Zonegran] Allergy Confusion Verified 06/30/21 18:23 Review of Systems ROS Statement: Those systems with pertinent positive or pertinent negative responses have been documented in the HPI. ROS Other: All systems not noted in ROS Statement are negative. Past Medical History Past Medical History: Fibromyalgia, GERD/Reflux, Hearing Disorder / Deafness, Thyroid Disorder Additional Past Medical History / Comment(s): knee pain, MIGRAINES, back pain, hypotension, [place] R/T NERVE UNFORMED BABY History of Any Multi-Drug Resistant Organisms: None Reported Past Surgical History: Hysterectomy, Orthopedic Surgery, Tubal Ligation Additional Past Surgical History / Comment(s): LT ELBOW POPPED BACK INTO PLACE 2008 POST DISLOCATION, Past Anesthesia/Blood Transfusion Reactions: Motion Sickness Past Psychological History: Anxiety, Depression Smoking Status: Never smoker Past Alcohol Use History: None Reported Past Drug Use History: None Reported - Past Family History Mother History Unknown: Yes Additional Family Medical History / Comment(s): NOT COMPLETELY SURE OF FAMILY HX. NO CONTACT WITH BIOLOGICAL FAMILY IN MANY YEARS General Exam Limitations: no limitations General appearance: alert, in no apparent distress, other (This is a well- developed, well-nourished adult female in no acute distress. ) Eye exam: Present: normal appearance, PERRL, EOMI. Absent: scleral icterus, conjunctival injection, periorbital swelling ENT exam: Present: normal exam, normal oropharynx, mucous membranes moist Respiratory exam: Present: normal lung sounds bilaterally. Absent: respiratory distress, wheezes, rales, rhonchi, stridor Cardiovascular Exam: Present: regular rate, normal rhythm, normal heart sounds. Absent: systolic murmur, diastolic murmur, rubs, gallop, clicks Extremities exam: Present: full ROM, tenderness (Right lateral malleolus), n ormal capillary refill, other (There is soft tissue swelling noted to the right lateral malleolus. Skin is otherwise pink, warm, dry. Cap refill less than 3 seconds. Pedal and posttibial pulses 2+.). Absent: normal inspection, pedal edema, joint swelling, calf tenderness Neurological exam: Present: alert, oriented X3, CN II-XII intact Psychiatric exam: Present: normal affect, normal mood Skin exam: Present: warm, dry, intact, normal color. Absent: rash Course Vital Signs 06/30/21 18:20 Temperature 97.9 F Pulse Rate 86 Respiratory 16 Rate O2 Sat by Pulse 98 Oximetry Medical Decision Making - Medical Decision Making 49-year-old female patient presents to the emergency department today for evaluation of right ankle and foot pain after an injury at work. Physical examination did reveal soft tissue swelling surrounding the right lateral malleolus. Neurovascular status is intact. X-rays are negative. She is placed in ankle stirrup splint with Adi wrap beneath. She is instructed to take ibu profen 3 times daily. Given a starter pack of Tylenol with Codeine. She'll be discharged pop with employee health services as needed. Return parameters were discussed in detail. She verbalizes understanding and agrees with this plan. My attending is Dr. De Anda. - Radiology Data Radiology results: report reviewed, image reviewed 3 views of the right ankle shows negative right ankle exam. No fracture 3 views of the right foot were obtained. Report was reviewed in its entirety. Impression by Dr. Toro shows negative right foot exam. No fracture. Disposition Clinical Impression: Right ankle sprain Disposition: HOME SELF-CARE Condition: Good Instructions (If sedation given, give patient instructions): Ankle Sprain (ED) Additional Instructions: Rest, ice, elevate the ankle. Use splint for comfort and support. Take tylenol and motrin together for pain relief. Follow-up with her symptoms are not improved after 1 week. Return for any new, worsening, or concerning symptoms. Is patient prescribed a controlled substance at d/c from ED?: No Referrals: Kenroy Yi MD [Primary Care Provider] - 1-2 days Time of Disposition: 19:07
--- NOTE | 2021-06-30 18:48 | XR ---
EXAMINATION TYPE: XR ankle complete RT DATE OF EXAM: 06/30/2021 COMPARISON: NONE HISTORY: Pain TECHNIQUE: 3 views FINDINGS: Ankle mortise is anatomic. I see no fracture nor dislocation. Joint spaces are normal. IMPRESSION: Negative right ankle exam. No fracture.
--- NOTE | 2021-06-30 18:48 | XR ---
EXAMINATION TYPE: XR foot complete RT DATE OF EXAM: 06/30/2021 COMPARISON: NONE HISTORY: Foot pain TECHNIQUE: 3 views FINDINGS: I see no fracture nor dislocation. Metatarsals are intact. Joint spaces are normal. IMPRESSION: Negative right foot exam. No fracture.
== END 2021-06-30 20:35 | disposition home or self-care (01) ==
LOC: EC 18:18
DX: S93.401A Sprain of unspecified ligament of right ankle, initial encounter (principal); K21.9 Gastro-esophageal reflux disease without esophagitis; M79.7 Fibromyalgia; E07.9 Disorder of thyroid, unspecified; F41.9 Anxiety disorder, unspecified; F32.A Depression, unspecified; Z90.710 Acquired absence of both cervix and uterus; Z98.51 Tubal ligation status; X50.0XXA Overexertion from strenuous movement or load, initial encounter
CPT/HCPCS: 99283; 96372; 29515; 73610; 73630; L4350; J1885

== ENCOUNTER → 2021-07-09 | Outpatient (CLI) | payer OTHER ==
--- NOTE | 2021-07-09 10:50 | XR ---
EXAMINATION TYPE: XR ankle complete RT DATE OF EXAM: 07/09/2021 COMPARISON: NONE HISTORY: Pain FINDINGS: Three views of the ankle demonstrate the ankle mortise to be intact and symmetric. The joint spaces are preserved. The osseous structures are intact. IMPRESSION: 1. No definite acute fracture or dislocation, if symptoms persist follow-up study in 7 to 10 days wou ld be suggested.
--- NOTE | 2021-07-09 10:52 | XR ---
EXAMINATION TYPE: XR foot complete RT DATE OF EXAM: 07/09/2021 COMPARISON: NONE HISTORY: Pain TECHNIQUE: Three views are submitted. FINDINGS: The osseous structures are intact. There is no acute fracture or dislocation. Joint spaces are p reserved. IMPRESSION: 1. No acute fracture or dislocation. If symptoms persist, follow-up exam in 7 to 10 days could be ob tained.
== END | disposition home or self-care (01) ==
LOC: RADXRMAIN 10:18
PROVIDERS: ATTEND Family Medicine
DX: M25.571 Pain in right ankle and joints of right foot (principal); M79.671 Pain in right foot

== ENCOUNTER 2021-08-02 05:55 | Emergency (ER) | payer MEDICAID ==
[2021-08-02 06:02] VITALS: RESP 18; TEMP 97.8
[2021-08-02] MEDS ORDERED: MORPHINE SULFATE 4 MG/ML SYRINGE IM STA (07:09)
[2021-08-02] MEDS ORDERED: methylPREDNISolone SOD SUCCI 125 MG/2 ML VIAL IM ONE (07:09)
--- NOTE | 2021-08-02 07:21 | ED ---
General Adult HPI - General Chief complaint: Back Pain/Injury Stated complaint: Sciatica Time Seen by Provider: 08/02/21 06:35 Source: patient Mode of arrival: wheelchair Limitations: physical limitation - History of Present Illness Initial comments: 41-year-old female presents to the emergency room for a chief complaint of right sided sciatica. Patient states that she has had sciatica for 12 years now. She has seen both orthopedic surgeon and a neurologist. She has had MRIs and other workups. Patient states that on Thursday she aggravated this by moving everything from her attic to the downstairs of her house. Patient states today she had pain with bending down to put on her shoes and socks so decided to come to the emergency room. pt denies any bladder or bowel changes, saddle anesthesia, weakness of the legs, or fevers/chills Patient has no other complaints at this time including shortness of breath, chest pain, abdominal pain, nausea or vomiting, headache, or visual changes. - Related Data Home Medications Medication Instructions Recorded Confirmed Cyclobenzaprine [Flexeril] 5 mg PO BID PRN 06/30/21 06/30/21 Escitalopram Oxalate [Lexapro] 20 mg PO HS 06/30/21 06/30/21 Magnesium 200 mg PO DAILY 06/30/21 06/30/21 Montelukast [Singulair] 10 mg PO HS 06/30/21 06/30/21 Omeprazole 40 mg PO DAILY 06/30/21 06/30/21 Thyroid,Pork [Physical Science Professor Thyroid] 90 mg PO DAILY 06/30/21 06/30/21 Topiramate [Topiramate ER] 150 mg PO DAILY 06/30/21 06/30/21 buPROPion XL [Wellbutrin XL] 150 mg PO DAILY 06/30/21 06/30/21 Previous Rx's Medication Instructions Recorded predniSONE 50 mg PO DAILY #5 tablet 08/02/21 Allergies Allergy/AdvReac Type Severity Reaction Status Date / Time aripiprazole [From Abilify] Allergy Unknown Verified 08/02/21 06:02 baclofen Allergy STOMACH Verified 08/02/21 06:02 PAIN chicken derived Allergy Anaphylaxis Verified 08/02/21 06:02 zonisamide [From Zonegran] Allergy Confusion Verified 08/02/21 06:02 Review of Systems ROS Statement: Those systems with pertinent positive or pertinent negative responses have been documented in the HPI. ROS Other: All systems not noted in ROS Statement are negative. Past Medical History Past Medical History: Fibromyalgia, GERD/Reflux, Hearing Disorder / Deafness, Thyroid Disorder Additional Past Medical History / Comment(s): knee pain, MIGRAINES, back pain, hypotension, [place] R/T NERVE UNFORMED BABY History of Any Multi-Drug Resistant Organisms: None Reported Past Surgical History: Hysterectomy, Orthopedic Surgery, Tubal Ligation Additional Past Surgical History / Comment(s): LT ELBOW POPPED BACK INTO PLACE 2008 POST DISLOCATION, Past Anesthesia/Blood Transfusion Reactions: Motion Sickness Past Psychological History: Anxiety, Depression Smoking Status: Never smoker Past Alcohol Use History: None Reported Past Drug Use History: None Reported - Past Family History Mother History Unknown: Yes Additional Family Medical History / Comment(s): NOT COMPLETELY SURE OF FAMILY HX. NO CONTACT WITH BIOLOGICAL FAMILY IN MANY YEARS General Exam Limitations: physical limitation General appearance: alert, in no apparent distress Head exam: Present: atraumatic Eye exam: Present: normal appearance, PERRL, EOMI. Absent: scleral icterus, conjunctival injection ENT exam: Present: normal exam, mucous membranes moist Neck exam: Present: normal inspection, full ROM. Absent: tenderness Respiratory exam: Present: normal lung sounds bilaterally. Absent: respiratory distress, wheezes Cardiovascular Exam: Present: regular rate, normal rhythm, normal heart sounds GI/Abdominal exam: Present: soft, normal bowel sounds. Absent: distended, tenderness Extremities exam: Present: full ROM (full range of motion right leg), normal capillary refill (This 50 seconds right side.), other (Positive straight leg raise test right side) Course Vital Signs 08/02/21 05:57 Temperature 97.8 F Pulse Rate 89 Respiratory 18 Rate Blood Pressure 117/74 O2 Sat by Pulse 99 Oximetry Medical Decision Making - Medical Decision Making Vitals are stable. Patient has a chronic history of similar symptoms. This is aggravated on Thursday by carrying objects downstairs. Patient has no red flag symptoms. Neurovascular status intact right lower extremity. Patient will be treated for sciatica exacerbation. Patient states toradol does not work therefore will be given morphine and steroid. She will follow up with orthopedics. She will return here for any worsening symptoms. Disposition Clinical Impression: Lumbar radiculopathy Disposition: HOME SELF-CARE Condition: Good Instructions (If sedation given, give patient instructions): Sciatica (ED) Additional Instructions: Based take steroid as directed starting tomorrow. Follow-up with your doctor. Follow-up with orthopedics. Return to the emergency room for any worsening symptoms. Prescriptions: predniSONE 50 mg PO DAILY #5 tablet Is patient prescribed a controlled substance at d/c from ED?: No Referrals: Kenroy Yi MD [Primary Care Provider] - 1-2 days Jose Raul Oconnell DO [Doctor of Osteopathic Medicine] - 1-2 days Time of Disposition: 07:20
[2021-08-02 07:47] VITALS: BP 115/80; PULSE 73
== END 2021-08-02 07:56 ==
LOC: EC 05:55
DX: M54.16 Radiculopathy, lumbar region (principal); K21.9 Gastro-esophageal reflux disease without esophagitis; G43.909 Migraine, unspecified, not intractable, without status migrainosus; F32.A Depression, unspecified; F41.9 Anxiety disorder, unspecified; Z79.899 Other long term (current) drug therapy
CPT/HCPCS: 99283; 96372 ×2; J2270; J2930

== ENCOUNTER 2021-08-07 11:49 | Emergency (ER) | payer MEDICAID, OTHER ==
[2021-08-07 11:59] VITALS: RESP 18
[2021-08-07] MEDS ORDERED: SODIUM CHLORIDE 0.9% 1,000 ML IV STA (12:08)
--- NOTE | 2021-08-07 12:13 | ED ---
General Adult HPI - General Chief complaint: Syncope Stated complaint: Syncope Time Seen by Provider: 08/07/21 12:00 Source: patient, EMS, RN notes reviewed, old records reviewed Mode of arrival: EMS Limitations: no limitations - History of Present Illness Initial comments: 41-year-old female presents for evaluation after syncope and collapse. Patient was at work. She was doing a lot of repetitive movements with high level of exertion. 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 She states she began feeling lightheaded, had some tunnel vision and then passed out for approximately 5 minutes. She denies injury. She did report some chest tightness which is resolved. No dyspnea. No vomiting. No diarrhea. She's been otherwise feeling well. She states she did eat breakfast but had not had much to drink today. 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[facility] [employer]her Thyroid] 90 mg PO DAILY 06/30/21 08/07/21 Topiramate [Topiramate ER] 150 mg PO DAILY 06/30/21 08/07/21 buPROPion XL [Wellbutrin XL] 150 mg PO DAILY 06/30/21 08/07/21 Phentermine HCl [Adipex-P] 37.5 mg PO DAILY 08/07/21 08/07/21 Previous Rx's Medication Instructions Recorded predniSONE 50 mg PO DAILY #5 tablet 08/02/21 Allergies Allergy/AdvReac Type Severity Reaction Status Date / Time chicken derived Allergy Anaphylaxis Verified 08/07/21 13:32 aripiprazole [From Abilify] AdvReac Confusion Verified 08/07/21 13:32 baclofen AdvReac STOMACH Verified 08/07/21 13:32 PAIN gabapentin AdvReac Rapid Verified 08/07/21 13:32 Heart Rate zonisamide [From Zonegran] AdvReac Confusion Verified 08/07/21 13:32 Review of Systems ROS Statement: Those systems with pertinent positive or pertinent negative responses have been documented in the HPI. ROS Other: All systems not noted in ROS Statement are negative. Past Medical History Past Medical History: Fibromyalgia, GERD/Reflux, Hearing Disorder / Deafness, Thyroid Disorder Additional Past Medical History / Comment(s): knee pain, MIGRAINES, back pain, hypotension, [place] R/T NERVE UNFORMED BABY History of Any Multi-Drug Resistant Organisms: None Reported Past Surgical History: Hysterectomy, Orthopedic Surgery, Tubal Ligation Additional Past Surgical History / Comment(s): LT ELBOW POPPED BACK INTO PLACE 2008 POST DISLOCATION, Past Anesthesia/Blood Transfusion Reactions: Motion Sickness Past Psychological History: Anxiety, Depression Smoking Status: Never smoker Past Alcohol Use History: None Reported Past Drug Use History: None Reported - Past Family History Mother History Unknown: Yes Additional Family Medical History / Comment(s): NOT COMPLETELY SURE OF FAMILY HX. NO CONTACT WITH BIOLOGICAL FAMILY IN MANY YEARS General Exam Limitations: no limitations General appearance: alert, in no apparent distress Head exam: Present: atraumatic, normocephalic Eye exam: Present: normal appearance, PERRL ENT exam: Present: mucous membranes dry Neck exam: Present: normal inspection. Absent: tenderness, meningismus Respiratory exam: Present: normal lung sounds bilaterally. Absent: respiratory distress, wheezes Cardiovascular Exam: Present: regular rate, normal rhythm GI/Abdominal exam: Present: soft. Absent: distended, tenderness, guarding Extremities exam: Present: normal inspection, normal capillary refill. Absent: pedal edema, calf tenderness Neurological exam: Present: alert, oriented X3, CN II-XII intact. Absent: motor sensory deficit Psychiatric exam: Present: normal affect, normal mood Skin exam: Present: warm, dry, intact. Absent: cyanosis, diaphoretic Course Vital Signs 08/07/21 08/07/21 08/07/21 11:51 12:36 13:00 Temperature 98.4 F Pulse Rate 107 H Pulse Rate [ 90 92 Switch Foreman ] Pulse Rate [ 107 H Standing Switch Foreman ] Respiratory 18 Rate Blood Pressure 93/62 Blood Pressure 107/75 [Right Arm Sitting] Blood Pressure 100/79 [Right Arm Standing] O2 Sat by Pulse 97 Oximetry EKG Findings - EKG Comments: EKG Findings:: EKG: Normal sinus rhythm, rate 93, PA interval 154, QRS duration 68, QTC 422, no ST segment changes. Medical Decision Making - Medical Decision Making 41-year-old female with syncopal episode while at work. This does seem related to orthostatic hypotension and dehydration. She has a normal CBC, mild bump in her creatinine. She had initial blood sugar of 78. She's given IV fluid, and food as well as oral fluids in the emergency department. On reevaluation she is feeling better. She is encouraged to maintain oral hydration at home. Return parameters were discussed. She does have a EKG showing sinus rhythm. - Lab Data Result diagrams: 08/07/21 12:00 08/07/21 12:00 Lab Results 08/07/21 08/07/21 08/07/21 Range/Units 12:00 12:00 12:00 WBC 7.0 (3.8-10.6) k/uL RBC 4.75 (3.80-5.40) m/uL Hgb 14.6 (11.4-16.0) gm/dL Hct 44.1 (34.0-46.0) % MCV 92.8 (80.0-100.0) fL MCH 30.8 (25.0-35.0) pg MCHC 33.1 (31.0-37.0) g/dL RDW 12.7 (11.5-15.5) % Plt Count 214 (150-450) k/uL MPV 7.6 Neutrophils % 72 % Lymphocytes % 19 % Monocytes % 6 % Eosinophils % 2 % Basophils % 0 % Neutrophils # 5.0 (1.3-7.7) k/uL Lymphocytes # 1.3 (1.0-4.8) k/uL Monocytes # 0.4 (0-1.0) k/uL Eosinophils # 0.2 (0-0.7) k/uL Basophils # 0.0 (0-0.2) k/uL PT 10.7 (9.0-12.0) sec INR 1.0 (<1.2) APTT 22.0 (22.0-30.0) sec Sodium 139 (137-145) mmol/L Potassium 3.7 (3.5-5.1) mmol/L Chloride 111 H (98-107) mmol/L Carbon Dioxide 19 L (22-30) mmol/L Anion Gap 9 mmol/L BUN 19 H (7-17) mg/dL Creatinine 1.33 H (0.52-1.04) mg/dL Est GFR (CKD-EPI)AfAm 58 (>60 ml/min/1.73 sqM) Est GFR (CKD-EPI)NonAf 50 (>60 ml/min/1.73 sqM) Glucose 72 L (74-99) mg/dL POC Glucose (mg/dL) (75-99) mg/dL POC Glu Head Of Conservation ID Calcium 8.8 (8.4-10.2) mg/dL Magnesium 2.1 (1.6-2.3) mg/dL Total Bilirubin 0.5 (0.2-1.3) mg/dL AST 21 (14-36) U/L ALT 14 (4-34) U/L Alkaline Phosphatase 58 (38-126) U/L Troponin I (0.000-0.034) ng/mL Total Protein 6.5 (6.3-8.2) g/dL Albumin 3.9 (3.5-5.0) g/dL Urine Color Urine Appearance (Clear) Urine pH (5.0-8.0) Ur Specific [place] (1.001-1.035) Urine Protein (Negative) Urine Glucose (UA) (Negative) Urine Ketones (Negative) Urine Blood (Negative) Urine Nitrite (Negative) Urine Bilirubin (Negative) Urine Urobilinogen (<2.0) mg/dL Ur Leukocyte Esterase (Negative) Urine RBC (0-5) /hpf Ur Squamous Epith Cells (0-4) /hpf Amorphous Sediment (None) /hpf Urine Bacteria (None) /hpf Granular Casts (0) /lpf Urine Mucus (None) /hpf 08/07/21 08/07/21 08/07/21 Range/Units 12:00 13:09 13:55 WBC (3.8-10.6) k/uL RBC (3.80-5.40) m/uL Hgb (11.4-16.0) gm/dL Hct (34.0-46.0) % MCV (80.0-100.0) fL MCH (25.0-35.0) pg MCHC (31.0-37.0) g/dL RDW (11.5-15.5) % Plt Count (150-450) k/uL MPV Neutrophils % % Lymphocytes % % Monocytes % % Eosinophils % % Basophils % % Neutrophils # (1.3-7.7) k/uL Lymphocytes # (1.0-4.8) k/uL Monocytes # (0-1.0) k/uL Eosinophils # (0-0.7) k/uL Basophils # (0-0.2) k/uL PT (9.0-12.0) sec INR (<1.2) APTT (22.0-30.0) sec Sodium (137-145) mmol/L Potassium (3.5-5.1) mmol/L Chloride (98-107) mmol/L Carbon Dioxide (22-30) mmol/L Anion Gap mmol/L BUN (7-17) mg/dL Creatinine (0.52-1.04) mg/dL Est GFR (CKD-EPI)AfAm (>60 ml/min/1.73 sqM) Est GFR (CKD-EPI)NonAf (>60 ml/min/1.73 sqM) Glucose (74-99) mg/dL POC Glucose (mg/dL) 85 (75-99) mg/dL POC Glu Head Of Conservation ID Odalys Allen Calcium (8.4-10.2) mg/dL Magnesium (1.6-2.3) mg/dL Total Bilirubin (0.2-1.3) mg/dL AST (14-36) U/L ALT (4-34) U/L Alkaline Phosphatase (38-126) U/L Troponin I <0.012 (0.000-0.034) ng/mL Total Protein (6.3-8.2) g/dL Albumin (3.5-5.0) g/dL Urine Color Yellow Urine Appearance Cloudy H (Clear) Urine pH 7.0 (5.0-8.0) Ur Specific [place] 1.015 (1.001-1.035) Urine Protein Negative (Negative) Urine Glucose (UA) Negative (Negative) Urine Ketones Negative (Negative) Urine Blood Negative (Negative) Urine Nitrite Negative (Negative) Urine Bilirubin Negative (Negative) Urine Urobilinogen <2.0 (<2.0) mg/dL Ur Leukocyte Esterase Negative (Negative) Urine RBC 1 (0-5) /hpf Ur Squamous Epith Cells 7 H (0-4) /hpf Amorphous Sediment Rare H (None) /hpf Urine Bacteria Occasional H (None) /hpf Granular Casts 5 (0) /lpf Urine Mucus Rare H (None) /hpf Disposition Clinical Impression: Syncope due to orthostatic hypotension, Dehydration Disposition: HOME SELF-CARE Condition: Good Instructions (If sedation given, give patient instructions): Syncope (DC), Dehydration (ED) Is patient prescribed a controlled substance at d/c from ED?: No Referrals: Kenroy Yi MD [Primary Care Provider] - 1-2 days Time of Disposition: 14:37
[2021-08-07 12:20] LABS: Basophils % (A) 0 %; Eosinophils # (A) 0.2 k/uL (0-0.7); Eosinophils % (A) 2 %; HCT 44.1 % (34.0-46.0); HGB 14.6 gm/dL (11.4-16.0); Lymphocytes # (A) 1.3 k/uL (1.0-4.8); Lymphocytes % (A) 19 %; MCH 30.8 pg (25.0-35.0); MCHC 33.1 g/dL (31.0-37.0); MCV 92.8 fL (80.0-100.0); Mean Platelet Volume 7.6; Monocytes # (A) 0.4 k/uL (0-1.0); Monocytes % (A) 6 %; Neutrophils % (A) 72 %; Platelet Count 214 k/uL (150-450); RBC 4.75 m/uL (3.80-5.40); RDW 12.7 % (11.5-15.5)
[2021-08-07 12:28] LABS: Albumin 3.9 g/dL (3.5-5.0); Calcium 8.8 mg/dL (8.4-10.2); Magnesium 2.1 mg/dL (1.6-2.3); Potassium 3.7 mmol/L (3.5-5.1); Total Bilirubin 0.5 mg/dL (0.2-1.3); Total Protein 6.5 g/dL (6.3-8.2)
[2021-08-07 12:39] LABS: Prothrombin Time 10.7 sec (9.0-12.0)
[2021-08-07 13:10] LABS: Glucose,Whole Blood 85 mg/dL (75-99)
[2021-08-07 14:27] LABS: Amorphous Sediment,Urine Rare /hpf; Appearance,Urine Cloudy (Clear); Bacteria,Urine Occasional /hpf; Bilirubin,Urine Negative (Negative); Blood,Urine Negative (Negative); Color,Urine Yellow; Glucose,Urine (UA) Negative (Negative); Granular Casts,Urine 5 /lpf (0); Ketones,Urine Negative (Negative); Leukocyte Esterase,Urine Negative (Negative); Mucus,Urine Rare /hpf; Nitrite,Urine Negative (Negative); Protein,Urine Negative (Negative); RBC,Urine 1 /hpf (0-5); Specific Gravity,Urine 1.015 (1.001-1.035); Squamous Epithelial Cell,Urine 7 /hpf (0-4); Urobilinogen,Urine <2.0 mg/dL (<2.0)
[2021-08-07 14:49] VITALS: BP 108/76; PULSE 70; TEMP 98.2
== END 2021-08-07 14:55 | disposition home or self-care (01) ==
LOC: EC 11:49
DX: I95.1 Orthostatic hypotension (principal); E86.0 Dehydration; M79.7 Fibromyalgia; K21.9 Gastro-esophageal reflux disease without esophagitis; E07.9 Disorder of thyroid, unspecified; F41.9 Anxiety disorder, unspecified; F32.A Depression, unspecified; Z90.710 Acquired absence of both cervix and uterus; Z98.51 Tubal ligation status
CPT/HCPCS: 36415; 80053; 81001; 83735; 84484; 85025; 85610; 85730; 93005; 96360; 99284

== ENCOUNTER 2021-08-10 21:30 | Emergency (ER) | payer MEDICAID ==
[2021-08-10 21:37] VITALS: BP 103/69; PULSE 112; RESP 20; TEMP 98.5
[2021-08-10] MEDS ORDERED: LIDOCAINE VISCOUS 2% 15 ML CUP MUCOUS MEM STA (23:46)
--- NOTE | 2021-08-10 23:49 | ED ---
URI HPI - General Chief Complaint: Upper Respiratory Infection Stated Complaint: SOB,cough,congestion Time Seen by Provider: 08/10/21 23:08 Source: patient Mode of arrival: wheelchair Limitations: no limitations - History of Present Illness MD Complaint: fever, cough, sore throat, nasal congestion Onset/Timin -: days(s) Improves With: nothing Worsens With: nothing Context: sick contacts Associated Symptoms: fever, chills, myalgias, nasal congestion, sore throat, cough Treatments Prior to Arrival: none 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Nuclear Plant Operator Thyroid] 90 mg PO DAILY 06/30/21 08/07/21 Topiramate [Topiramate ER] 150 mg PO DAILY 06/30/21 08/07/21 buPROPion XL [Wellbutrin XL] 150 mg PO DAILY 06/30/21 08/07/21 Phentermine HCl [Adipex-P] 37.5 mg PO DAILY 08/07/21 08/07/21 Previous Rx's Medication Instructions Recorded predniSONE 50 mg PO DAILY #5 tablet 08/02/21 Allergies Allergy/AdvReac Type Severity Reaction Status Date / Time chicken derived Allergy Anaphylaxis Verified 08/10/21 21:37 aripiprazole [From Abilify] AdvReac Confusion Verified 08/10/21 21:37 baclofen AdvReac STOMACH Verified 08/10/21 21:37 PAIN gabapentin AdvReac Rapid Verified 08/10/21 21:37 Heart Rate zonisamide [From Zonegran] AdvReac Confusion Verified 08/10/21 21:37 Review of Systems ROS Statement: Those systems with pertinent positive or pertinent negative responses have been documented in the HPI. ROS Other: All systems not noted in ROS Statement are negative. Constitutional: Reports: fever, chills, weakness ENT: Reports: throat pain, congestion Respiratory: Reports: cough. Denies: dyspnea, hemoptysis Cardiovascular: Denies: chest pain, palpitations, dyspnea on exertion, orthopnea Gastrointestinal: Denies: abdominal pain, vomiting, diarrhea Genitourinary: Denies: dysuria Musculoskeletal: Denies: back pain Skin: Denies: rash Neurological: Denies: headache, weakness, numbness Past Medical History Past Medical History: Fibromyalgia, GERD/Reflux, Hearing Disorder / Deafness, Thyroid Disorder Additional Past Medical History / Comment(s): knee pain, MIGRAINES, back pain, hypotension, [place] R/T NERVE UNFORMED BABY History of Any Multi-Drug Resistant Organisms: None Reported Past Surgical History: Hysterectomy, Orthopedic Surgery, Tubal Ligation Additional Past Surgical History / Comment(s): LT ELBOW POPPED BACK INTO PLACE 2008 POST DISLOCATION, Past Anesthesia/Blood Transfusion Reactions: Motion Sickness Past Psychological History: Anxiety, Depression Smoking Status: Never smoker Past Alcohol Use History: None Reported Past Drug Use History: None Reported - Past Family History Mother History Unknown: Yes Additional Family Medical History / Comment(s): NOT COMPLETELY SURE OF FAMILY HX. NO CONTACT WITH BIOLOGICAL FAMILY IN MANY YEARS General Exam Limitations: no limitations General appearance: alert, in no apparent distress Head exam: Present: atraumatic, normocephalic Eye exam: Present: normal appearance. Absent: scleral icterus, conjunctival inj ection ENT exam: Present: other (There is injection of the pharynx. The uvula is midline with no edema. No peritonsillar abscess.) Neck exam: Present: normal inspection, lymphadenopathy. Absent: meningismus Respiratory exam: Present: normal lung sounds bilaterally. Absent: respiratory distress, wheezes, rales, rhonchi, stridor Cardiovascular Exam: Present: regular rate, normal rhythm, normal heart sounds. Absent: systolic murmur, diastolic murmur, rubs, gallop GI/Abdominal exam: Present: soft. Absent: distended, tenderness, guarding, rebound, rigid, mass Extremities exam: Present: normal inspection, normal capillary refill. Absent: pedal edema, calf tenderness Back exam: Present: normal inspection. Absent: CVA tenderness (R), CVA tenderness (L) Neurological exam: Present: alert Skin exam: Present: warm, dry, intact, normal color. Absent: rash Course Vital Signs 08/10/21 21:32 Temperature 98.5 F Pulse Rate 112 H Respiratory 20 Rate Blood Pressure 103/69 O2 Sat by Pulse 99 Oximetry Medical Decision Making - Lab Data Lab Results 08/10/21 Range/Units 21:37 Coronavirus (PCR) Detected A (Not Detectd) Disposition Clinical Impression: COVID-19 Disposition: HOME SELF-CARE Condition: Good Instructions (If sedation given, give patient instructions): Coronavirus Disease 2019 (COVID-19) Is patient prescribed a controlled substance at d/c from ED?: No Referrals: Kenroy Yi MD [Primary Care Provider] - 1-2 days
== END 2021-08-11 00:02 | disposition home or self-care (01) ==
LOC: EC 21:30
DX: U07.1 COVID-19 (principal); K21.9 Gastro-esophageal reflux disease without esophagitis; M79.7 Fibromyalgia; F32.A Depression, unspecified; F41.9 Anxiety disorder, unspecified; Z79.52 Long term (current) use of systemic steroids; Z79.899 Other long term (current) drug therapy
CPT/HCPCS: 87635; 99283

== ENCOUNTER 2021-11-13 00:38 | Emergency (ER) | payer OTHER ==
[2021-11-13 00:44] VITALS: TEMP 97.9
[2021-11-13] MEDS ORDERED: METOCLOPRAMIDE 5 MG/ML 2 ML VIAL IVP STA (01:24)
[2021-11-13] MEDS ORDERED: SODIUM CHLORIDE 0.9% 1,000 ML IV ONE (01:24)
[2021-11-13] MEDS ORDERED: diphenhydrAMINE 50 MG/ML 1 ML VIAL IVP STA (01:24)
[2021-11-13] MEDS ORDERED: KETOROLAC 15 MG/ML 1 ML VIAL IVP STA (01:25)
--- NOTE | 2021-11-13 03:10 | CT ---
EXAMINATION TYPE: CT brain wo con DATE OF EXAM: 11/13/2021 COMPARISON: 09/28/2020 HISTORY: Headache CT DLP: 1142.4 mGycm Automated exposure control for dose reduction was used. Ventricles of normal size. There is no mass effect or midline shift. There is no sign of intracranial hemorrhage. Calvarium is intact. There is no evidence of cerebral edema. IMPRESSION: Negative unenhanced head CT scan. No change.
[2021-11-13] MEDS ORDERED: methylPREDNISolone SOD SUCCI 125 MG/2 ML VIAL IV STA (03:57)
[2021-11-13] MEDS ORDERED: SODIUM CHLORIDE 0.9% 500 ML 500 ML IV STA (03:57)
[2021-11-13] MEDS ORDERED: SUMAtriptan succinate 6 MG/0.5 ML VIAL SQ STA (03:57)
--- NOTE | 2021-11-13 04:26 | ED ---
Headache HPI - General Chief Complaint: Headache Stated Complaint: Headache Time Seen by Provider: 11/13/21 00:53 Mode of arrival: ambulatory Limitations: no limitations - History of Present Illness MD Complaint: headache -: hour(s) Onset Description: gradual Location: frontal Quality: aching Consistency: constant Improves With: nothing Worsens With: none 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Hand Folder Thyroid] 90 mg PO DAILY 06/30/21 08/07/21 Topiramate [Topiramate ER] 150 mg PO DAILY 06/30/21 08/07/21 buPROPion XL [Wellbutrin XL] 150 mg PO DAILY 06/30/21 08/07/21 Phentermine HCl [Adipex-P] 37.5 mg PO DAILY 08/07/21 08/07/21 Previous Rx's Medication Instructions Recorded predniSONE 50 mg PO DAILY #5 tablet 08/02/21 Allergies Allergy/AdvReac Type Severity Reaction Status Date / Time chicken derived Allergy Anaphylaxis Verified 11/13/21 00:44 aripiprazole [From Abilify] AdvReac Confusion Verified 11/13/21 00:44 baclofen AdvReac STOMACH Verified 11/13/21 00:44 PAIN gabapentin AdvReac Rapid Verified 11/13/21 00:44 Heart Rate zonisamide [From Zonegran] AdvReac Confusion Verified 11/13/21 00:44 Review of Systems ROS Statement: Those systems with pertinent positive or pertinent negative responses have been documented in the HPI. ROS Other: All systems not noted in ROS Statement are negative. Constitutional: Denies: fever, chills Respiratory: Denies: cough, dyspnea Cardiovascular: Denies: chest pain, palpitations, syncope Gastrointestinal: Denies: abdominal pain Musculoskeletal: Denies: back pain Skin: Denies: rash Neurological: Reports: headache. Denies: weakness, numbness, paresthesias Past Medical History Past Medical History: Fibromyalgia, GERD/Reflux, Hearing Disorder / Deafness, Thyroid Disorder Additional Past Medical History / Comment(s): knee pain, MIGRAINES, back pain, hypotension, [place] R/T NERVE UNFORMED BABY History of Any Multi-Drug Resistant Organisms: None Reported Past Surgical History: Hysterectomy, Orthopedic Surgery, Tubal Ligation Additional Past Surgical History / Comment(s): LT ELBOW POPPED BACK INTO PLACE 2008 POST DISLOCATION, Past Anesthesia/Blood Transfusion Reactions: Motion Sickness Past Psychological History: Anxiety, Depression Smoking Status: Never smoker Past Alcohol Use History: None Reported Past Drug Use History: None Reported - Past Family History Mother History Unknown: Yes Additional Family Medical History / Comment(s): NOT COMPLETELY SURE OF FAMILY HX. NO CONTACT WITH BIOLOGICAL FAMILY IN MANY YEARS General Exam Limitations: no limitations General appearance: alert, in no apparent distress Head exam: Present: atraumatic, normocephalic Eye exam: Present: normal appearance. Absent: scleral icterus, conjunctival injection ENT exam: Present: normal oropharynx Neck exam: Present: normal inspection Respiratory exam: Present: normal lung sounds bilaterally. Absent: respiratory distress, wheezes, rales, rhonchi, stridor Cardiovascular Exam: Present: regular rate, normal rhythm, normal heart sounds. Absent: systolic murmur, diastolic murmur, rubs, gallop GI/Abdominal exam: Present: soft. Absent: distended, tenderness, guarding, rebound, rigid, mass Extremities exam: Present: normal inspection, normal capillary refill Back exam: Present: normal inspection Neurological exam: Present: alert, oriented X3, CN II-XII intact. Absent: motor sensory deficit Skin exam: Present: warm, dry, intact, normal color. Absent: rash Course Vital Signs 11/13/21 11/13/21 00:41 04:49 Temperature 97.9 F Pulse Rate 85 81 Respiratory 16 18 Rate Blood Pressure 117/78 124/84 O2 Sat by Pulse 98 96 Oximetry Disposition Clinical Impression: Headache Disposition: HOME SELF-CARE Condition: Good Instructions (If sedation given, give patient instructions): Acute Headache (ED) Is patient prescribed a controlled substance at d/c from ED?: No Referrals: Dona Yi DO [Primary Care Provider] - 1-2 days
[2021-11-13 04:52] VITALS: BP 124/84; PULSE 81; RESP 18
== END 2021-11-13 04:52 | disposition home or self-care (01) ==
LOC: EC 00:38 → SUPCPDRO 00:38 → EC 04:52
DX: R51.9 Headache, unspecified (principal); F32.A Depression, unspecified; F41.9 Anxiety disorder, unspecified; K21.9 Gastro-esophageal reflux disease without esophagitis; M79.7 Fibromyalgia; Z79.890 Hormone replacement therapy; Z79.899 Other long term (current) drug therapy
CPT/HCPCS: 70450; 99284; 96374; 96375 ×3; 96361; J3030; J1200; J2765; J2930; J1885

== ENCOUNTER 2021-12-27 10:42 | Emergency (ER) | payer MEDICAID, OTHER ==
[2021-12-27 10:46] VITALS: BP 115/78; PULSE 86; RESP 16; TEMP 97.9
--- NOTE | 2021-12-27 11:25 | XR ---
Left wrist HISTORY: Trauma and pain 4 views of the left wrist, correlation to prior exams of 11/13/2020 Remodeling is present at the radiocarpal joint. Bone mineralization, joint spaces and alignment are m aintained with the exception o the lateral view. Question some dorsal displacement of the distal ulna in relation to the radius. IMPRESSION: No fracture evident. Correlate to exclude dorsal subluxation of the distal ulnar relation to the radius, findings could be projectional.
--- NOTE | 2021-12-27 11:36 | ED ---
Upper Extremity HPI - General Chief Complaint: Extremity Injury, Upper Stated Complaint: L wrist injury Time Seen by Provider: 12/27/21 10:46 Source: patient, RN notes reviewed Mode of arrival: ambulatory Limitations: no limitations - History of Present Illness Initial Comments: 41-year-old female presents emergency Department with chief complaint left wrist injury. Patient states she was pushing herself to get out of bed states that her wrist collapsed and felt comfort. She will wear brace on it states that she went to 3 soft went to move it states that she had increase in pain. She has pain with flexion extension. Patient denies any fall otherwise. Patient states she had a fracture when she was 20. 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Sap Abap Programmer Thyroid] 90 mg PO DAILY 06/30/21 08/07/21 Topiramate [Topiramate ER] 150 mg PO DAILY 06/30/21 08/07/21 buPROPion XL [Wellbutrin XL] 150 mg PO DAILY 06/30/21 08/07/21 Phentermine HCl [Adipex-P] 37.5 mg PO DAILY 08/07/21 08/07/21 Previous Rx's Medication Instructions Recorded predniSONE 50 mg PO DAILY #5 tablet 08/02/21 Ibuprofen [Motrin] 600 mg PO Q8HR PRN #20 tab 12/27/21 Allergies Allergy/AdvReac Type Severity Reaction Status Date / Time chicken derived Allergy Anaphylaxis Verified 12/27/21 10:46 aripiprazole [From Abilify] AdvReac Confusion Verified 12/27/21 10:46 baclofen AdvReac STOMACH Verified 12/27/21 10:46 PAIN gabapentin AdvReac Rapid Verified 12/27/21 10:46 Heart Rate zonisamide [From Zonegran] AdvReac Confusion Verified 12/27/21 10:46 Review of Systems ROS Statement: Those systems with pertinent positive or pertinent negative responses have been documented in the HPI. ROS Other: All systems not noted in ROS Statement are negative. Past Medical History Past Medical History: Fibromyalgia, GERD/Reflux, Hearing Disorder / Deafness, Thyroid Disorder Additional Past Medical History / Comment(s): knee pain, MIGRAINES, back pain, hypotension, [place] R/T NERVE UNFORMED BABY History of Any Multi-Drug Resistant Organisms: None Reported Past Surgical History: Hysterectomy, Orthopedic Surgery, Tubal Ligation Additional Past Surgical History / Comment(s): LT ELBOW POPPED BACK INTO PLACE 2008 POST DISLOCATION, Past Anesthesia/Blood Transfusion Reactions: Motion Sickness Past Psychological History: Anxiety, Depression Smoking Status: Never smoker Past Alcohol Use History: None Reported Past Drug Use History: None Reported - Past Family History Mother History Unknown: Yes Additional Family Medical History / Comment(s): NOT COMPLETELY SURE OF FAMILY HX. NO CONTACT WITH BIOLOGICAL FAMILY IN MANY YEARS General Exam Limitations: no limitations General appearance: alert, in no apparent distress Head exam: Present: atraumatic, normocephalic, normal inspection Eye exam: Present: normal appearance, PERRL, EOMI. Absent: scleral icterus, conjunctival injection, periorbital swelling Neck exam: Present: normal inspection, full ROM. Absent: tenderness, meni ngismus, lymphadenopathy Respiratory exam: Present: normal lung sounds bilaterally. Absent: respiratory distress, wheezes, rales, rhonchi, stridor Cardiovascular Exam: Present: regular rate, normal rhythm, normal heart sounds. Absent: systolic murmur, diastolic murmur, rubs, gallop, clicks Extremities exam: Present: other (Left wrist there is pain with flexion extension, no discomfort with pronation supination tenderness with palpation to the distal radius ulnar region mild swelling neurovascular intact) Course Vital Signs 12/27/21 10:44 Temperature 97.9 F Pulse Rate 86 Respiratory 16 Rate Blood Pressure 115/78 O2 Sat by Pulse 98 Oximetry Medical Decision Making - Medical Decision Making X-ray does not reveal any acute fracture. Question possible subluxation though felt more likely to be angled projection. Patient will continue her wrist brace and follow-up with orthopedics. Disposition Clinical Impression: Left wrist sprain Disposition: HOME SELF-CARE Condition: Stable Instructions (If sedation given, give patient instructions): Wrist Injury (ED) Additional Instructions: Please return to the Emergency Department if symptoms worsen or any other concerns. Prescriptions: Ibuprofen [Motrin] 600 mg PO Q8HR PRN #20 tab PRN Reason: Pain Is patient prescribed a controlled substance at d/c from ED?: No Referrals: Dona Yi DO [Primary Care Provider] - 1-2 days Zachariah Tovar DO [Doctor of Osteopathic Medicine] - 1-2 days Time of Disposition: 11:36
[2021-12-27] MEDS ORDERED: ACET/COD 300 MG/30 MG STARTER PACK 6 TAB BTL PO STA (11:40)
[2021-12-27] MEDS ORDERED: IBUPROFEN 600 MG TAB PO STA (11:40)
== END 2021-12-27 12:01 | disposition home or self-care (01) ==
LOC: EC 10:42
DX: S63.502A Unspecified sprain of left wrist, initial encounter (principal); K21.9 Gastro-esophageal reflux disease without esophagitis; M79.7 Fibromyalgia; E07.9 Disorder of thyroid, unspecified; Z88.2 Allergy status to sulfonamides; Z88.8 Allergy status to other drugs, medicaments and biological substances; Z88.6 Allergy status to analgesic agent; Z79.899 Other long term (current) drug therapy; Z79.890 Hormone replacement therapy; X50.9XXA Other and unspecified overexertion or strenuous movements or postures, initial encounter
CPT/HCPCS: 99283

== ENCOUNTER 2021-12-29 15:05 | Emergency (ER) | payer MEDICAID, OTHER ==
[2021-12-29] MEDS ORDERED: diphenhydrAMINE 50 MG/ML 1 ML VIAL IVP STA ×2 (15:27→17:17)
[2021-12-29] MEDS ORDERED: FAMOTIDINE 20 MG/2 ML VIAL IV STA (15:27)
[2021-12-29] MEDS ORDERED: methylPREDNISolone SOD SUCCI 125 MG/2 ML VIAL IV STA (15:27)
--- NOTE | 2021-12-29 15:32 | ED ---
General Adult HPI - General Chief complaint: ENT Stated complaint: Throat Swelling Time Seen by Provider: 12/29/21 15:18 Source: patient, RN notes reviewed Mode of arrival: ambulatory Limitations: no limitations - History of Present Illness Initial comments: Patient is a pleasant 41-year-old female presenting to the emergency Department with concerns with swelling in the back of her throat. Onset of symptoms was morning. Symptoms have somewhat progressed worsened since that time. Patient just took 2 Benadryl prior to arrival. Patient does not feel there is prominence of her throat. No tongue or facial or lip swelling. No history of similar symptoms previously. Patient does not take blood pressure medication. 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International Student Counselor Thyroid] 90 mg PO DAILY 06/30/21 08/07/21 Topiramate [Topiramate ER] 150 mg PO DAILY 06/30/21 08/07/21 buPROPion XL [Wellbutrin XL] 150 mg PO DAILY 06/30/21 08/07/21 Phentermine HCl [Adipex-P] 37.5 mg PO DAILY 08/07/21 08/07/21 Previous Rx's Medication Instructions Recorded predniSONE 50 mg PO DAILY #5 tablet 08/02/21 Ibuprofen [Motrin] 600 mg PO Q8HR PRN #20 tab 12/27/21 predniSONE [Deltasone] 20 mg PO BID #10 tab 12/29/21 Allergies Allergy/AdvReac Type Severity Reaction Status Date / Time chicken derived Allergy Anaphylaxis Verified 12/29/21 15:16 aripiprazole [From Abilify] AdvReac Confusion Verified 12/29/21 15:16 baclofen AdvReac STOMACH Verified 12/29/21 15:16 PAIN gabapentin AdvReac Rapid Verified 12/29/21 15:16 Heart Rate zonisamide [From Zonegran] AdvReac Confusion Verified 12/29/21 15:16 Review of Systems ROS Statement: Those systems with pertinent positive or pertinent negative responses have been documented in the HPI. ROS Other: All systems not noted in ROS Statement are negative. Constitutional: Denies: fever Eyes: Denies: eye pain ENT: Reports: as per HPI. Denies: ear pain Respiratory: Reports: as per HPI. Denies: cough Cardiovascular: Denies: chest pain Endocrine: Denies: fatigue Gastrointestinal: Denies: abdominal pain Genitourinary: Denies: dysuria Musculoskeletal: Denies: back pain Skin: Denies: rash Neurological: Denies: weakness Past Medical History Past Medical History: Fibromyalgia, GERD/Reflux, Hearing Disorder / Deafness, Thyroid Disorder Additional Past Medical History / Comment(s): knee pain, MIGRAINES, back pain, hypotension, [place] R/T NERVE UNFORMED BABY History of Any Multi-Drug Resistant Organisms: None Reported Past Surgical History: Hysterectomy, Orthopedic Surgery, Tubal Ligation Additional Past Surgical History / Comment(s): LT ELBOW POPPED BACK INTO PLACE 2008 POST DISLOCATION, Past Anesthesia/Blood Transfusion Reactions: Motion Sickness Past Psychological History: Anxiety, Depression Smoking Status: Never smoker Past Alcohol Use History: None Reported Past Drug Use History: None Reported - Past Family History Mother History Unknown: Yes Additional Family Medical History / Comment(s): NOT COMPLETELY SURE OF FAMILY HX. NO CONTACT WITH BIOLOGICAL FAMILY IN MANY YEARS General Exam Limitations: no limitations General appearance: alert, in no apparent distress, other (She does have difficulty speaking more than one to 2 words) Head exam: Present: normocephalic Eye exam: Present: normal appearance, PERRL ENT exam: Present: other (Moderate uvular edema. No edema of the tongue or lips or other part of the throat) Neck exam: Present: normal inspection Respiratory exam: Present: normal lung sounds bilaterally. Absent: respiratory distress Cardiovascular Exam: Present: regular rate, normal rhythm GI/Abdominal exam: Present: soft. Absent: tenderness Neurological exam: Present: alert Psychiatric exam: Present: normal affect, normal mood Skin exam: Present: normal color. Absent: rash Course Vital Signs 12/29/21 12/29/21 12/29/21 15:13 16:16 17:33 Temperature 97.7 F 97.9 F Pulse Rate 90 75 75 Respiratory 16 18 18 Rate Blood Pressure 128/91 132/97 132/98 O2 Sat by Pulse 97 100 98 Oximetry Medical Decision Making - Medical Decision Making Patient reevaluated twice. Voice has significantly improved and appears normal. Patient states she does feel better and requests discharge home. Swelling has decreased however not completely resolved. Disposition Clinical Impression: Uvular edema Disposition: HOME SELF-CARE Condition: Stable Instructions (If sedation given, give patient instructions): Angioedema (ED) Additional Instructions: Prescription sent to pharmacy, start late tonight or early in the morning. Continue Benadryl for the next 5 days. Return for increased swelling, difficulty breathing, difficulty tolerating fluids, worsening symptoms or other concerns. Prescriptions: predniSONE [Deltasone] 20 mg PO BID #10 tab Is patient prescribed a controlled substance at d/c from ED?: No Referrals: Dona Yi DO [Primary Care Provider] - 1-2 days Time of Disposition: 18:13
[2021-12-29 16:27] VITALS: RESP 18; TEMP 97.9
[2021-12-29 18:28] VITALS: BP 113/81; PULSE 87
== END 2021-12-29 18:20 | disposition home or self-care (01) ==
LOC: EC 15:05
DX: N90.89 Other specified noninflammatory disorders of vulva and perineum (principal); R22.0 Localized swelling, mass and lump, head; K21.9 Gastro-esophageal reflux disease without esophagitis; M79.7 Fibromyalgia; E07.9 Disorder of thyroid, unspecified; Z88.2 Allergy status to sulfonamides; Z88.8 Allergy status to other drugs, medicaments and biological substances; Z79.899 Other long term (current) drug therapy; Z88.6 Allergy status to analgesic agent; Z91.018 Allergy to other foods; Z79.890 Hormone replacement therapy
CPT/HCPCS: 99283; 96374; 96375; 96376; J1200; J2930

== ENCOUNTER 2022-01-14 15:00 | Emergency (ER) | payer MEDICAID, OTHER ==
[2022-01-14] MEDS ORDERED: MORPHINE SULFATE 4 MG/ML SYRINGE IV STA (17:18)
[2022-01-14] MEDS ORDERED: KETOROLAC 15 MG/ML 1 ML VIAL IVP STA (17:18)
[2022-01-14 17:53] LABS: Basophils # (A) 0.1 k/uL (0-0.2); Basophils % (A) 1 %; Eosinophils # (A) 0.4 k/uL (0-0.7); Eosinophils % (A) 5 %; HCT 47.4 % (34.0-46.0); Lymphocytes # (A) 1.7 k/uL (1.0-4.8); Lymphocytes % (A) 20 %; MCH 31.3 pg (25.0-35.0); MCHC 33.8 g/dL (31.0-37.0); MCV 92.6 fL (80.0-100.0); Mean Platelet Volume 6.8; Monocytes # (A) 0.5 k/uL (0-1.0); Monocytes % (A) 6 %; Neutrophils # (A) 5.5 k/uL (1.3-7.7); Neutrophils % (A) 66 %; Platelet Count 248 k/uL (150-450); RBC 5.12 m/uL (3.80-5.40); RDW 13.6 % (11.5-15.5); WBC 8.3 k/uL (3.8-10.6)
[2022-01-14 17:59] LABS: ALT 67 U/L (4-34); AST 43 U/L (14-36); African American GFR (CKD) >90 (>60 ml/min/1.73 sqM); Albumin 4.1 g/dL (3.5-5.0); Alkaline Phosphatase 90 U/L (38-126); Anion Gap 6 mmol/L; Blood Urea Nitrogen 21 mg/dL (7-17); Carbon Dioxide 30 mmol/L (22-30); Chloride 101 mmol/L (98-107); Glucose 86 mg/dL (74-99); Non-African American GFR(CKD) 81 (>60 ml/min/1.73 sqM); Potassium 4.3 mmol/L (3.5-5.1); Sodium 137 mmol/L (137-145); Total Bilirubin 0.5 mg/dL (0.2-1.3)
[2022-01-14 18:40] VITALS: TEMP 98.2
--- NOTE | 2022-01-14 18:58 | CT ---
EXAMINATION TYPE: CT soft tissue neck w con DATE OF EXAM: 01/14/2022 COMPARISON: None HISTORY: Neck pain, denies injury CT DLP: 316.2 mGycm Automated exposure control for dose reduction was used. CONTRAST: Performed with IV Contrast, patient injected with 100 mL of Isovue 300. Images obtained from the aortic arch to the top of the orbits with IV contrast. There is normal branching pattern of the great vessels and aortic arch. The thyroid gland is symmetri c. There is normal opacification of the carotid arteries and jugular veins. There is arterial flow in the vertebral arteries. There is wide patency of the carotid artery bifurcations. No cervical adenop athy. Parotid and submandibular salivary glands appear intact. Epiglottis is normal. Tongue appears normal. Subglottic trachea appears normal. Prevertebral soft tis sues appear normal. The tonsils and adenoids appear normal. No evidence of pharyngeal mass. The cervical vertebra appear normal. There is normal spacing and alignment. Posterior elements are in tact. There is no evidence of orbital mass. Paranasal sinuses appear intact. IMPRESSION: Normal CT scan of the cervical soft tissues.
--- NOTE | 2022-01-14 19:07 | ED ---
Neck Injury/Pain HPI - General Chief Complaint: Neck Pain/Injury Stated Complaint: R shoulder injury Time Seen by Provider: 01/14/22 17:08 Mode of arrival: ambulatory Limitations: no limitations - History of Present Illness Initial Comments: Patient complains of neck pain. Pain is on the right side of the right neck. It doesn't radiate to her. The pain is worse with movement. She denies trauma. She has no headache. She has no lightheadedness. She has no dizziness. She has not seen a chiropractor. She has no trouble swallowing. She has no chest or belly or back pain. She has no nausea or vomiting. She has no change in vision or hearing. 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[employer] Thyroid] 90 mg PO DAILY 06/30/21 08/07/21 Topiramate [Topiramate ER] 150 mg PO DAILY 06/30/21 08/07/21 buPROPion XL [Wellbutrin XL] 150 mg PO DAILY 06/30/21 08/07/21 Phentermine HCl [Adipex-P] 37.5 mg PO DAILY 08/07/21 08/07/21 Previous Rx's Medication Instructions Recorded predniSONE 50 mg PO DAILY #5 tablet 08/02/21 Ibuprofen [Motrin] 600 mg PO Q8HR PRN #20 tab 12/27/21 predniSONE [Deltasone] 20 mg PO BID #10 tab 12/29/21 Allergies Allergy/AdvReac Type Severity Reaction Status Date / Time chicken derived Allergy Anaphylaxis Verified 01/14/22 15:32 aripiprazole [From Abilify] AdvReac Confusion Verified 01/14/22 15:32 baclofen AdvReac STOMACH Verified 01/14/22 15:32 PAIN gabapentin AdvReac Rapid Verified 01/14/22 15:32 Heart Rate zonisamide [From Zonegran] AdvReac Confusion Verified 01/14/22 15:32 Review of Systems ROS Statement: Those systems with pertinent positive or pertinent negative responses have been documented in the HPI. ROS Other: All systems not noted in ROS Statement are negative. Past Medical History Past Medical History: Fibromyalgia, GERD/Reflux, Hearing Disorder / Deafness, Thyroid Disorder Additional Past Medical History / Comment(s): knee pain, MIGRAINES, back pain, hypotension, [place] R/T NERVE UNFORMED BABY History of Any Multi-Drug Resistant Organisms: None Reported Past Surgical History: Hysterectomy, Orthopedic Surgery, Tubal Ligation Additional Past Surgical History / Comment(s): LT ELBOW POPPED BACK INTO PLACE 2008 POST DISLOCATION, Past Anesthesia/Blood Transfusion Reactions: Motion Sickness Past Psychological History: Anxiety, Depression Smoking Status: Never smoker Past Alcohol Use History: None Reported Past Drug Use History: None Reported - Past Family History Mother History Unknown: Yes Additional Family Medical History / Comment(s): NOT COMPLETELY SURE OF FAMILY HX. NO CONTACT WITH BIOLOGICAL FAMILY IN MANY YEARS General Exam Limitations: no limitations General appearance: alert, in no apparent distress Head exam: Present: atraumatic, normocephalic, normal inspection Eye exam: Present: normal appearance, PERRL, EOMI. Absent: scleral icterus, conjunctival injection, periorbital swelling ENT exam: Present: normal exam, mucous membranes moist Neck exam: Present: normal inspection. Absent: tenderness, meningismus, lymphadenopathy Respiratory exam: Present: normal lung sounds bilaterally. Absent: respiratory distress, wheezes, rales, rhonchi, stridor Cardiovascular Exam: Present: regular rate, normal rhythm, normal heart sounds. Absent: systolic murmur, diastolic murmur, rubs, gallop, clicks GI/Abdominal exam: Present: soft, normal bowel sounds. Absent: distended, tenderness, guarding, rebound, rigid Extremities exam: Present: normal inspection, full ROM, normal capillary refill. Absent: tenderness, pedal edema, joint swelling, calf tenderness Back exam: Present: normal inspection Neurological exam: Present: alert, oriented X3, CN II-XII intact Psychiatric exam: Present: normal affect, normal mood Skin exam: Present: warm, dry, intact, normal color. Absent: rash Course Vital Signs 01/14/22 01/14/22 15:29 18:00 Temperature 97.6 F 98.2 F Pulse Rate 94 73 Respiratory 18 20 Rate Blood Pressure 122/88 135/93 O2 Sat by Pulse 97 98 Oximetry Medical Decision Making - Medical Decision Making Patient complains of neck pain. She had a recent upper respiratory infection. I obtained a CT to evaluate for any type of abscess or other emergency. The CT is negative. Her labs are negative. She is treated with morphine and Toradol. She is feeling better. She tolerates oral intake. She is stable for discharge. - Lab Data Result diagrams: 01/14/22 17:33 01/14/22 17:33 Lab Results 01/14/22 01/14/22 Range/Units 17:33 17:33 WBC 8.3 (3.8-10.6) k/uL RBC 5.12 (3.80-5.40) m/uL Hgb 16.0 (11.4-16.0) gm/dL Hct 47.4 H (34.0-46.0) % MCV 92.6 (80.0-100.0) fL MCH 31.3 (25.0-35.0) pg MCHC 33.8 (31.0-37.0) g/dL RDW 13.6 (11.5-15.5) % Plt Count 248 (150-450) k/uL MPV 6.8 Neutrophils % 66 % Lymphocytes % 20 % Monocytes % 6 % Eosinophils % 5 % Basophils % 1 % Neutrophils # 5.5 (1.3-7.7) k/uL Lymphocytes # 1.7 (1.0-4.8) k/uL Monocytes # 0.5 (0-1.0) k/uL Eosinophils # 0.4 (0-0.7) k/uL Basophils # 0.1 (0-0.2) k/uL Sodium 137 (137-145) mmol/L Potassium 4.3 (3.5-5.1) mmol/L Chloride 101 (98-107) mmol/L Carbon Dioxide 30 (22-30) mmol/L Anion Gap 6 mmol/L BUN 21 H (7-17) mg/dL Creatinine 0.90 (0.52-1.04) mg/dL Est GFR (CKD-EPI)AfAm >90 (>60 ml/min/1.73 sqM) Est GFR (CKD-EPI)NonAf 81 (>60 ml/min/1.73 sqM) Glucose 86 (74-99) mg/dL Calcium 9.0 (8.4-10.2) mg/dL Total Bilirubin 0.5 (0.2-1.3) mg/dL AST 43 H (14-36) U/L ALT 67 H (4-34) U/L Alkaline Phosphatase 90 (38-126) U/L Total Protein 7.0 (6.3-8.2) g/dL Albumin 4.1 (3.5-5.0) g/dL Disposition Clinical Impression: Strain of neck muscle Disposition: HOME SELF-CARE Condition: Good Instructions (If sedation given, give patient instructions): Cervical Strain (ED) Is patient prescribed a controlled substance at d/c from ED?: No Referrals: Dona Yi DO [Primary Care Provider] - 1-2 days
[2022-01-14 19:08] VITALS: BP 119/85; PULSE 74; RESP 18
== END 2022-01-14 19:15 | disposition home or self-care (01) ==
LOC: EC 15:00
DX: S16.1XXA Strain of muscle, fascia and tendon at neck level, initial encounter (principal); K21.9 Gastro-esophageal reflux disease without esophagitis; M79.7 Fibromyalgia; F32.A Depression, unspecified; F41.9 Anxiety disorder, unspecified; E07.9 Disorder of thyroid, unspecified; Z79.890 Hormone replacement therapy; Z79.899 Other long term (current) drug therapy; X58.XXXA Exposure to other specified factors, initial encounter
CPT/HCPCS: 36415; 70491; 80053; 85025; 96374; 96375; 99284

== ENCOUNTER 2022-06-06 18:11 | Emergency (ER) | payer OTHER ==
[2022-06-06 21:38] VITALS: RESP 16
[2022-06-06 23:25] LABS: Basophils # (A) 0.1 k/uL (0-0.2); Basophils % (A) 1 %; Eosinophils # (A) 0.5 k/uL (0-0.7); Eosinophils % (A) 6 %; HCT 43.1 % (34.0-46.0); HGB 15.2 gm/dL (11.4-16.0); Lymphocytes # (A) 2.1 k/uL (1.0-4.8); Lymphocytes % (A) 26 %; MCH 30.3 pg (25.0-35.0); MCHC 35.3 g/dL (31.0-37.0); MCV 85.8 fL (80.0-100.0); Mean Platelet Volume 7.7; Monocytes # (A) 0.5 k/uL (0-1.0); Monocytes % (A) 7 %; Neutrophils # (A) 4.6 k/uL (1.3-7.7); Neutrophils % (A) 58 %; Platelet Count 220 k/uL (150-450); RBC 5.02 m/uL (3.80-5.40)
[2022-06-07 00:04] LABS: ALT 32 U/L (4-34); AST 36 U/L (14-36); African American GFR (CKD) >90 (>60 ml/min/1.73 sqM); Albumin 4.3 g/dL (3.5-5.0); Alkaline Phosphatase 118 U/L (38-126); Anion Gap 7 mmol/L; Blood Urea Nitrogen 21 mg/dL (7-17); Carbon Dioxide 28 mmol/L (22-30); Chloride 104 mmol/L (98-107); Glucose 93 mg/dL (74-99); Lipase 68 U/L (23-300); Non-African American GFR(CKD) 89 (>60 ml/min/1.73 sqM); Potassium 4.2 mmol/L (3.5-5.1); Sodium 139 mmol/L (137-145); Total Bilirubin 0.4 mg/dL (0.2-1.3); Total Protein 6.7 g/dL (6.3-8.2)
--- NOTE | 2022-06-07 00:11 | CT ---
EXAMINATION TYPE: CT abdomen pelvis w con DATE OF EXAM: 06/06/2022 COMPARISON: 06/22/2010 HISTORY: rt mid abd lump on abd CT DLP: 1407.2 mGycm Automated exposure control for dose reduction was used. CONTRAST: Performed with IV Contrast, patient injected with 100 mL of Isovue 300. Images obtained from the diaphragm to the floor the pelvis with the IV contrast. Lung bases are clear. No pleural effusion. Heart size is normal. There is large hiatal hernia. Liver spleen and stomach pancreas gallbladder appear intact. The bowel loops are not dilated. There is no adrenal mass. Kidneys have normal size. There is a 2 cm cortical cyst upper pole right ki dney. No hydronephrosis. There is a 1.5 cm cortical cyst medial lower pole left kidney. There is 3 mm calculus lower pole left kidney. No evidence of solid renal mass. No retroperitoneal adenopathy. Ure ters are not dilated. There is normal contrast opacification of the kidneys. Delayed images show norm al renal excretion. Ureters are not dilated. No retroperitoneal adenopathy. The bladder distends smoo thly. No inguinal hernia. No free fluid in the pelvis. There is no mesenteric edema. No ascites or free air. No bowel obstruction. The appendix is posterior and inferior and appears normal. The lumbar vertebrae have normal alignment. There is narrowing at L4-5 disc space. No compression fra cture. The bony pelvis is intact. Hip joints are intact. The sacroiliac joints appear normal. Hip laex nt spaces are normal. IMPRESSION: Normal appendix. No acute abnormality in the abdomen pelvis. Hysterectomy noted. Nonobstructing calcu laura lower pole left kidney appears new compared to old exam.
--- NOTE | 2022-06-07 00:46 | ED ---
Abdominal Pain HPI - General Chief Complaint: Abdominal Pain Stated Complaint: lump on abd Time Seen by Provider: 06/06/22 21:34 Source: patient Mode of arrival: ambulatory Limitations: no limitations - History of Present Illness Initial Comments: 42-year-old female presents to the emergency department with reported lump to her right abdomen. Patient states that she was having some right upper quadrant discomfort and was palpating the area when she felt a lump. She denies nausea or vomiting. No changes in her bowel or bladder habits. No fevers. No reported trauma. No other alleviating, precipitating or modifying factors 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[employer]er Thyroid] 90 mg PO DAILY 06/30/21 08/07/21 Topiramate [Topiramate ER] 150 mg PO DAILY 06/30/21 08/07/21 buPROPion XL [Wellbutrin XL] 150 mg PO DAILY 06/30/21 08/07/21 Phentermine HCl [Adipex-P] 37.5 mg PO DAILY 08/07/21 08/07/21 Previous Rx's Medication Instructions Recorded predniSONE 50 mg PO DAILY #5 tablet 08/02/21 Ibuprofen [Motrin] 600 mg PO Q8HR PRN #20 tab 12/27/21 predniSONE [Deltasone] 20 mg PO BID #10 tab 12/29/21 methocarbamoL [Robaxin-750] 1,500 mg PO TID #25 tab 01/14/22 Allergies Allergy/AdvReac Type Severity Reaction Status Date / Time chicken derived Allergy Anaphylaxis Verified 06/06/22 19:07 aripiprazole [From Abilify] AdvReac Confusion Verified 06/06/22 19:07 baclofen AdvReac STOMACH Verified 06/06/22 19:07 PAIN gabapentin AdvReac Rapid Verified 06/06/22 19:07 Heart Rate zonisamide [From Zonegran] AdvReac Confusion Verified 06/06/22 19:07 Review of Systems ROS Statement: Those systems with pertinent positive or pertinent negative responses have been documented in the HPI. ROS Other: All systems not noted in ROS Statement are negative. Past Medical History Past Medical History: Fibromyalgia, GERD/Reflux, Hearing Disorder / Deafness, Thyroid Disorder Additional Past Medical History / Comment(s): knee pain, MIGRAINES, back pain, hypotension, [place] R/T NERVE UNFORMED BABY History of Any Multi-Drug Resistant Organisms: None Reported Past Surgical History: Hysterectomy, Orthopedic Surgery, Tubal Ligation Additional Past Surgical History / Comment(s): LT ELBOW POPPED BACK INTO PLACE 2007 POST DISLOCATION, Past Anesthesia/Blood Transfusion Reactions: Motion Sickness Past Psychological History: Anxiety, Depression Smoking Status: Never smoker Past Alcohol Use History: None Reported Past Drug Use History: None Reported - Past Family History Mother History Unknown: Yes Additional Family Medical History / Comment(s): NOT COMPLETELY SURE OF FAMILY HX. NO CONTACT WITH BIOLOGICAL FAMILY IN MANY YEARS General Exam Limitations: no limitations General appearance: alert, in no apparent distress Head exam: Present: atraumatic, normocephalic, normal inspection Eye exam: Present: normal appearance, PERRL, EOMI. Absent: scleral icterus, conjunctival injection, periorbital swelling ENT exam: Present: normal exam, mucous membranes moist Neck exam: Present: normal inspection. Absent: tenderness, meningismus, lymphadenopathy Respiratory exam: Present: normal lung sounds bilaterally. Absent: respiratory distress, wheezes, rales, rhonchi, stridor Cardiovascular Exam: Present: regular rate, normal rhythm, normal heart sounds. Absent: systolic murmur, diastolic murmur, rubs, gallop, clicks GI/Abdominal exam: Present: soft, tenderness (epigastric), normal bowel sounds. Absent: distended, guarding, rebound, rigid Extremities exam: Present: normal inspection, full ROM, normal capillary refill. Absent: tenderness, pedal edema, joint swelling, calf tenderness Back exam: Present: normal inspection Neurological exam: Present: alert, oriented X3, CN II-XII intact Psychiatric exam: Present: normal affect, normal mood Skin exam: Present: warm, dry, intact, normal color. Absent: rash Course Vital Signs 06/06/22 06/06/22 06/07/22 19:05 21:36 01:09 Temperature 98.4 F 98.2 F 97.9 F Pulse Rate 104 H 88 72 Respiratory 20 16 16 Rate Blood Pressure 156/103 136/102 130/68 O2 Sat by Pulse 99 98 100 Oximetry Medical Decision Making - Medical Decision Making Upon arrival patient was placed into room 14. Thorough history and physical exam was performed. I did ultrasound the area however I am unable to find any abnormalities. I did discuss diagnosis, differential and treatment options. Patient is agreeable to CT for further evaluation of her symptoms. CT does not demonstrate any acute process. Patient will be discharged home at this time. Instructed to follow-up with her primary care doctor in 2-4 days and return for any worsening symptoms. Patient agreeable discharged home in stable condition - Lab Data Result diagrams: 06/06/22 23:01 06/06/22 23:18 Lab Results 06/06/22 06/06/22 Range/Units 23:01 23:18 WBC 8.0 (3.8-10.6) k/uL RBC 5.02 (3.80-5.40) m/uL Hgb 15.2 (11.4-16.0) gm/dL Hct 43.1 (34.0-46.0) % MCV 85.8 (80.0-100.0) fL MCH 30.3 (25.0-35.0) pg MCHC 35.3 (31.0-37.0) g/dL RDW 13.0 (11.5-15.5) % Plt Count 220 (150-450) k/uL MPV 7.7 Neutrophils % 58 % Lymphocytes % 26 % Monocytes % 7 % Eosinophils % 6 % Basophils % 1 % Neutrophils # 4.6 (1.3-7.7) k/uL Lymphocytes # 2.1 (1.0-4.8) k/uL Monocytes # 0.5 (0-1.0) k/uL Eosinophils # 0.5 (0-0.7) k/uL Basophils # 0.1 (0-0.2) k/uL Sodium 139 (137-145) mmol/L Potassium 4.2 (3.5-5.1) mmol/L Chloride 104 (98-107) mmol/L Carbon Dioxide 28 (22-30) mmol/L Anion Gap 7 mmol/L BUN 21 H (7-17) mg/dL Creatinine 0.82 (0.52-1.04) mg/dL Est GFR (CKD-EPI)AfAm >90 (>60 ml/min/1.73 sqM) Est GFR (CKD-EPI)NonAf 89 (>60 ml/min/1.73 sqM) Glucose 93 (74-99) mg/dL Calcium 9.0 (8.4-10.2) mg/dL Total Bilirubin 0.4 (0.2-1.3) mg/dL AST 36 (14-36) U/L ALT 32 (4-34) U/L Alkaline Phosphatase 118 (38-126) U/L Total Protein 6.7 (6.3-8.2) g/dL Albumin 4.3 (3.5-5.0) g/dL Lipase 68 (23-300) U/L Disposition Clinical Impression: Abdominal pain Disposition: HOME SELF-CARE Condition: Stable Instructions (If sedation given, give patient instructions): Normal Exam (ED) Additional Instructions: Please call and follow up with your primary care doctor. Return for any new or worsening symptoms Is patient prescribed a controlled substance at d/c from ED?: No Referrals: Dona Yi DO [Primary Care Provider] - 1-2 days Time of Disposition: 00:45
[2022-06-07 01:09] VITALS: BP 130/68; PULSE 72; TEMP 97.9
== END 2022-06-07 01:09 | disposition home or self-care (01) ==
LOC: EC 18:11
DX: R10.11 Right upper quadrant pain (principal); K21.9 Gastro-esophageal reflux disease without esophagitis; E07.9 Disorder of thyroid, unspecified; F41.9 Anxiety disorder, unspecified; F32.A Depression, unspecified; Z91.018 Allergy to other foods; Z88.6 Allergy status to analgesic agent; Z88.8 Allergy status to other drugs, medicaments and biological substances; Z79.899 Other long term (current) drug therapy
CPT/HCPCS: 36415; 80053; 83690; 85025; 74177; 99284; Q9967

== ENCOUNTER 2023-02-19 22:45 | Emergency (ER) | payer OTHER ==
[2023-02-19 22:50] VITALS: BP 138/97; PULSE 102; RESP 18; TEMP 98
[2023-02-19] MEDS ORDERED: KETOROLAC 15 MG/ML 1 ML VIAL IM STA (23:04)
--- NOTE | 2023-02-19 23:14 | ED ---
General Adult HPI - General Chief complaint: Wound/Laceration Stated complaint: Left Index Finger Laceration Time Seen by Provider: 02/19/23 22:53 Source: patient, RN notes reviewed Mode of arrival: ambulatory Limitations: no limitations - History of Present Illness Initial comments: 42-year-old female presents to the emergency department chief complaint of left index finger "abscess." Patient states that she was seen yesterday at her primary care provider who drained the area and prescribed her Bactrim. She states today that she had worsening pain. She has not taken anything for the pain. She now has a 0.25 cm abrasion to her left index finger that is not having any discharge, surrounding erythema, or streaking. Past medical history includes migraine headaches, thyroid disorder. 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[employer]il Inspector Thyroid] 90 mg PO DAILY 06/30/21 08/07/21 Topiramate [Topiramate ER] 150 mg PO DAILY 06/30/21 08/07/21 buPROPion XL [Wellbutrin XL] 150 mg PO DAILY 06/30/21 08/07/21 Phentermine HCl [Adipex-P] 37.5 mg PO DAILY 08/07/21 08/07/21 Previous Rx's Medication Instructions Recorded predniSONE 50 mg PO DAILY #5 tablet 08/02/21 Ibuprofen [Motrin] 600 mg PO Q8HR PRN #20 tab 12/27/21 predniSONE [Deltasone] 20 mg PO BID #10 tab 12/29/21 methocarbamoL [Robaxin-750] 1,500 mg PO TID #25 tab 01/14/22 Allergies Allergy/AdvReac Type Severity Reaction Status Date / Time chicken derived Allergy Anaphylaxis Verified 06/06/22 19:07 aripiprazole [From Abilify] AdvReac Confusion Verified 06/06/22 19:07 baclofen AdvReac STOMACH Verified 06/06/22 19:07 PAIN gabapentin AdvReac Rapid Verified 06/06/22 19:07 Heart Rate zonisamide [From Zonegran] AdvReac Confusion Verified 06/06/22 19:07 Review of Systems ROS Statement: Those systems with pertinent positive or pertinent negative responses have been documented in the HPI. ROS Other: All systems not noted in ROS Statement are negative. Past Medical History Past Medical History: Fibromyalgia, GERD/Reflux, Hearing Disorder / Deafness, Thyroid Disorder Additional Past Medical History / Comment(s): knee pain, MIGRAINES, back pain, hypotension, [place] R/T NERVE UNFORMED BABY History of Any Multi-Drug Resistant Organisms: None Reported Past Surgical History: Hysterectomy, Orthopedic Surgery, Tubal Ligation Additional Past Surgical History / Comment(s): LT ELBOW POPPED BACK INTO PLACE 2008 POST DISLOCATION, Past Anesthesia/Blood Transfusion Reactions: Motion Sickness Past Psychological History: Anxiety, Depression Smoking Status: Never smoker Past Alcohol Use History: None Reported Past Drug Use History: None Reported - Past Family History Mother History Unknown: Yes Additional Family Medical History / Comment(s): NOT COMPLETELY SURE OF FAMILY HX. NO CONTACT WITH BIOLOGICAL FAMILY IN MANY YEARS General Exam Limitations: no limitations General appearance: alert, in no apparent distress Head exam: Present: atraumatic, normocephalic, normal inspection Eye exam: Present: normal appearance, PERRL, EOMI. Absent: scleral icterus, conjunctival injection, periorbital swelling ENT exam: Present: normal exam, mucous membranes moist Neck exam: Present: normal inspection. Absent: tenderness, meningismus, lymphadenopathy Respiratory exam: Present: normal lung sounds bilaterally. Absent: respiratory distress, wheezes, rales, rhonchi, stridor Cardiovascular Exam: Present: regular rate, normal rhythm, normal heart sounds. Absent: systolic murmur, diastolic murmur, rubs, gallop, clicks GI/Abdominal exam: Present: soft, normal bowel sounds. Absent: distended, tenderness, guarding, rebound, rigid Extremities exam: Present: normal inspection, full ROM, normal capillary refill, other (0.25cm abrasion to left index finger). Absent: tenderness, pedal edema, joint swelling, calf tenderness Back exam: Present: normal inspection Psychiatric exam: Present: normal affect, normal mood Skin exam: Present: warm, dry, normal color, abrasion (0.25cm abrasion to left index finger). Absent: rash Course Vital Signs 02/19/23 22:47 Temperature 98.0 F Pulse Rate 102 H Respiratory 18 Rate Blood Pressure 138/97 O2 Sat by Pulse 98 Oximetry Medical Decision Making - Medical Decision Making Was pt. sent in by a medical professional or institution (MATTHEW Etienne, [employer], urgent care, hospital, or longterm...) When possible be specific @ -No Did you speak to anyone other than the patient for history (EMS, parent, family, police, friend...)? What history was obtained from this source @ -No Did you review nursing and triage notes (agree or disagree)? Why? @ -I reviewed and agree with nursing and triage notes Were old charts reviewed (outside hosp., previous admission, EMS record, old EKG, old radiological studies, urgent care reports/EKG's, longterm records)? Report findings @ -No old charts were reviewed Differential Diagnosis (chest pain, altered mental status, abdominal pain women, abdominal pain men, vaginal bleeding, weakness, fever, dyspnea, syncope, headache, dizziness, GI bleed, back pain, seizure, CVA, palpatations, mental health, musculoskeletal)? @ -Abrasion, laceration, abscess, this list is not all-inclusive. EKG interpreted by me (3pts min.). @ -None X-rays interpreted by me (1pt min.). @ -None done CT interpreted by me (1pt min.). @ -None done U/S interpreted by me (1pt. min.). @ -None done What testing was considered but not performed or refused? (CT, X-rays, U/S, labs)? Why? @ -None What meds were considered but not given or refused? Why? @ -None Did you discuss the management of the patient with other professionals (professionals i.e. MATTHEW Etienne, [employer], lab, RT, psych nurse, social work msw, manager commission, teacher, co founder and chief strategy officer, rehabilitation case coordinator)? Give summary @ -No Was smoking cessation discussed for >3mins.? @ -No Was critical care preformed (if so, how long)? @ -No Were there social determinants of health that impacted care today? How? (Homelessness, low income, unemployed, alcoholism, drug addiction, transportation, low edu. Level, literacy, decrease access to med. care, longterm, rehab)? @ -No Was there de-escalation of care discussed even if they declined (Discuss DNR or withdrawal of care, Hospice)? DNR status @ -No What co-morbidities impacted this encounter? (DM, HTN, Smoking, COPD, CAD, Cancer, CVA, ARF, Chemo, Hep., AIDS, mental health diagnosis, sleep apnea, morbid obesity)? @ -None Was patient admitted / discharged? Hospital course, mention meds given and route, prescriptions, significant lab abnormalities, going to OR and other pertinent info. @ -Discharged. Patient presented to emergency department chief complaint of finger abrasion. She states that she saw her primary care provider yesterday who prescribed her Bactrim. She states today that she had worsening pain. There is clear drainage from the area without surrounding erythema or streaking. Patient given Toradol for pain. Advised patient to continue her antibiotics as prescribed and take Tylenol and Motrin as needed for pain. She is stable at time of discharge. Case discussed my attending, Dr. Vasquez. Undiagnosed new problem with uncertain prognosis? @ -No Drug Therapy requiring intensive monitoring for toxicity (Heparin, Nitro, Insulin, Cardizem)? @ -No Were any procedures done? @ -No Diagnosis/symptom? @ -abrasion Acute, or Chronic, or Acute on Chronic? @ -acute Uncomplicated (without systemic symptoms) or Complicated (systemic symptoms)? @ -uncomplicated Side effects of treatment? @ -No Exacerbation, Progression, or Severe Exacerbation? @ -No Poses a threat to life or bodily function? How? (Chest pain, [place], [place], pneumonia, PE, COPD, DKA, ARF, appy, cholecystitis, CVA, Diverticulitis, Homicidal, Suicidal, threat to staff... and all critical care pts) @ -No Disposition Clinical Impression: Abrasion of finger Disposition: HOME SELF-CARE Condition: Stable Instructions (If sedation given, give patient instructions): Acute Wound Care (ED) Additional Instructions: Please take your antibiotics as prescribed. Take Tylenol and Motrin as needed for pain. Return to the emergency department for new or worsening symptoms. Is patient prescribed a controlled substance at d/c from ED?: No Referrals: Kenroy Yi MD [Primary Care Provider] - 1-2 days Time of Disposition: 23:08
== END 2023-02-19 23:47 | disposition home or self-care (01) ==
LOC: EC 22:45
DX: S60.411A Abrasion of left index finger, initial encounter (principal); K21.9 Gastro-esophageal reflux disease without esophagitis; F41.9 Anxiety disorder, unspecified; F32.A Depression, unspecified; E07.9 Disorder of thyroid, unspecified; Z79.890 Hormone replacement therapy; Z79.899 Other long term (current) drug therapy; Z88.2 Allergy status to sulfonamides; Z88.8 Allergy status to other drugs, medicaments and biological substances; Z91.018 Allergy to other foods; Z88.6 Allergy status to analgesic agent; Z88.9 Allergy status to unspecified drugs, medicaments and biological substances; Z88.1 Allergy status to other antibiotic agents; X58.XXXA Exposure to other specified factors, initial encounter
CPT/HCPCS: 99282; 96372; J1885

== ENCOUNTER 2023-04-30 15:39 | Emergency (ER) | payer OTHER ==
[2023-04-30] MEDS ORDERED: MECLIZINE 12.5 MG TAB PO STA (16:28)
[2023-04-30] MEDS ORDERED: ONDANSETRON 4 MG/2 ML VIAL IVP STA (16:28)
[2023-04-30] MEDS ORDERED: SODIUM CHLORIDE 0.9% 1,000 ML IV STA (16:28)
--- NOTE | 2023-04-30 16:31 | ED ---
General Adult HPI - General Chief complaint: Headache Stated complaint: NVD Source: patient Mode of arrival: EMS Limitations: no limitations - History of Present Illness Initial comments: 43-year-old female presented to the ED with a chief complaint of dizziness, onset 9 AM this morning. Associated nausea, vomiting, headache, and cough. States dizziness feels as if the room is spinning. Dizziness worse with positional changes. She reports a history of migraines and states current headache is not worse than usual headaches. Per , otherwise acting her normal self. No chest pain or shortness of breath. No other complaints. - Related Data Home Medications Medication Instructions Recorded Confirmed Escitalopram Oxalate [Lexapro] 20 mg PO DAILY 06/30/21 04/30/23 Magnesium 200 mg PO DAILY 06/30/21 04/30/23 Montelukast [Singulair] 10 mg PO DAILY 06/30/21 04/30/23 Thyroid,Pork [[employer] Manager Thyroid] 90 mg PO DAILY 06/30/21 04/30/23 buPROPion HCL [Wellbutrin XL] 150 mg PO DAILY 04/30/23 04/30/23 Previous Rx's Medication Instructions Recorded Meclizine [Antivert] 12.5 mg PO Q6H PRN #30 tablet 04/30/23 Allergies Allergy/AdvReac Type Severity Reaction Status Date / Time chicken derived Allergy Anaphylaxis Verified 04/30/23 16:27 aripiprazole [From Abilify] AdvReac Confusion Verified 04/30/23 16:27 baclofen AdvReac STOMACH Verified 04/30/23 16:27 PAIN gabapentin AdvReac Rapid Verified 04/30/23 16:27 Heart Rate zonisamide [From Zonegran] AdvReac Confusion Verified 04/30/23 16:27 Review of Systems ROS Statement: Those systems with pertinent positive or pertinent negative responses have been documented in the HPI. ROS Other: All systems not noted in ROS Statement are negative. Past Medical History Past Medical History: Fibromyalgia, GERD/Reflux, Hearing Disorder / Deafness, Thyroid Disorder Additional Past Medical History / Comment(s): knee pain, MIGRAINES, back pain, hypotension, TAZLINA R/T NERVE UNFORMED BABY History of Any Multi-Drug Resistant Organisms: None Reported Past Surgical History: Hysterectomy, Orthopedic Surgery, Tubal Ligation Additional Past Surgical History / Comment(s): LT ELBOW POPPED BACK INTO PLACE 2008 POST DISLOCATION, Past Anesthesia/Blood Transfusion Reactions: Motion Sickness Past Psychological History: Anxiety, Depression Smoking Status: Never smoker Past Alcohol Use History: None Reported Past Drug Use History: None Reported - Past Family History Mother History Unknown: Yes Additional Family Medical History / Comment(s): NOT COMPLETELY SURE OF FAMILY HX. NO CONTACT WITH BIOLOGICAL FAMILY IN MANY YEARS General Exam Limitations: no limitations General appearance: alert, in no apparent distress Eye exam: Present: PERRL, other (Horizontal nystagmus) Neck exam: Present: normal inspection Respiratory exam: Present: normal lung sounds bilaterally Cardiovascular Exam: Present: regular rate, normal rhythm GI/Abdominal exam: Present: soft Neurological exam: Present: alert, oriented X3, CN II-XII intact, other (Finger to nose, rapid alternate hand movements, [id number] intact.) Skin exam: Present: warm, dry Course Vital Signs 04/30/23 15:44 Respiratory 18 Rate Blood Pressure 125/92 Medical Decision Making - Medical Decision Making Was pt. sent in by a medical professional or institution (, PA, DIRECTOR NICU, urgent care, hospital, or assisted...) When possible be specific @ -No Did you speak to anyone other than the patient for history (EMS, parent, family, police, friend...)? What history was obtained from this source @ -No Did you review nursing and triage notes (agree or disagree)? Why? @ -I reviewed and agree with nursing and triage notes Were old charts reviewed (outside hosp., previous admission, EMS record, old EKG, old radiological studies, urgent care reports/EKG's, assisted records)? Report findings @ -No old charts were reviewed Differential Diagnosis (chest pain, altered mental status, abdominal pain women, abdominal pain men, vaginal bleeding, weakness, fever, dyspnea, syncope, headache, dizziness, GI bleed, back pain, seizure, CVA, palpatations, mental health, musculoskeletal)? @ -Differential Dizziness: Benign paroxysmal positional Vertigo, Menieres disease, otitis media, acoustic neuroma, vertebrobasilar insufficiency, cerebellar stroke, encephalitis, hypovolemic, arrhythmia, coronary artery syndrome, anemia, this is not meant to be an all-inclusive list EKG interpreted by me (3pts min.). @ -None X-rays interpreted by me (1pt min.). @ -None done CT interpreted by me (1pt min.). @ -CT brain and to her by me showing no evidence of hemorrhage or other acute process. U/S interpreted by me (1pt. min.). @ -None done What testing was considered but not performed or refused? (CT, X-rays, U/S, labs)? Why? @ -None What meds were considered but not given or refused? Why? @ -None Did you discuss the management of the patient with other professionals (professionals i.e. , PA, DIRECTOR NICU, lab, RT, psych nurse, social work coordinator, baking assistant, teacher, helicopter officer, business case analyst)? Give summary @ -No Was smoking cessation discussed for >3mins.? @ -No Was critical care preformed (if so, how long)? @ -No Were there social determinants of health that impacted care today? How? (Homelessness, low income, unemployed, alcoholism, drug addiction, transportation, low edu. Level, literacy, decrease access to med. care, fpc, rehab)? @ -No Was there de-escalation of care discussed even if they declined (Discuss DNR or withdrawal of care, Hospice)? DNR status @ -No What co-morbidities impacted this encounter? (DM, HTN, Smoking, COPD, CAD, Cancer, CVA, ARF, Chemo, Hep., AIDS, mental health diagnosis, sleep apnea, morbid obesity)? @ -None Was patient admitted / discharged? Hospital course, mention meds given and route, prescriptions, significant lab abnormalities, going to OR and other pertinent info. @ -Discharge 43-year-old female presenting to the ED with a chief complaint of dizziness with associated nausea and vomiting onset this morning. Patient had significant improvement of symptoms with meclizine, Zofran, IV fluids. Patient will be prescribed prescription for meclizine. Discharged home in stable condition with referral to ENT. Discussed return precautions with patient and family who ve rbalizes agreement. Undiagnosed new problem with uncertain prognosis? @ -No Drug Therapy requiring intensive monitoring for toxicity (Heparin, Nitro, Insulin, Cardizem)? @ -No Were any procedures done? @ -No Diagnosis/symptom? @ -Vertigo Acute, or Chronic, or Acute on Chronic? @ -Acute Uncomplicated (without systemic symptoms) or Complicated (systemic symptoms)? @ -Uncomplicated Side effects of treatment? @ -No Exacerbation, Progression, or Severe Exacerbation? @ -No Poses a threat to life or bodily function? How? (Chest pain, [place], [place], pneumonia, PE, COPD, DKA, ARF, appy, cholecystitis, CVA, Diverticulitis, Homicidal, Suicidal, threat to staff... and all critical care pts) @ -No - Lab Data Result diagrams: 04/30/23 16:31 04/30/23 16:31 Lab Results 04/30/23 04/30/23 04/30/23 Range/Units 16:29 16:29 16:31 WBC 6.2 (3.8-10.6) k/uL RBC 5.20 (3.80-5.40) m/uL Hgb 15.5 (11.4-16.0) gm/dL Hct 44.6 (34.0-46.0) % MCV 85.8 (80.0-100.0) fL MCH 29.8 (25.0-35.0) pg MCHC 34.7 (31.0-37.0) g/dL RDW 13.0 (11.5-15.5) % Plt Count 213 (150-450) k/uL MPV 7.8 Neutrophils % 74 % Lymphocytes % 17 % Monocytes % 4 % Eosinophils % 2 % Basophils % 0 % Neutrophils # 4.6 (1.3-7.7) k/uL Lymphocytes # 1.1 (1.0-4.8) k/uL Monocytes # 0.2 (0-1.0) k/uL Eosinophils # 0.1 (0-0.7) k/uL Basophils # 0.0 (0-0.2) k/uL Sodium (137-145) mmol/L Potassium (3.5-5.1) mmol/L Chloride (98-107) mmol/L Carbon Dioxide (22-30) mmol/L Anion Gap mmol/L BUN (7-17) mg/dL Creatinine (0.52-1.04) mg/dL Est GFR (CKD-EPI)AfAm (>60 ml/min/1.73 sqM) Est GFR (CKD-EPI)NonAf (>60 ml/min/1.73 sqM) Glucose (74-99) mg/dL Calcium (8.4-10.2) mg/dL Total Bilirubin (0.2-1.3) mg/dL AST (14-36) U/L ALT (4-34) U/L Alkaline Phosphatase (38-126) U/L Total Protein (6.3-8.2) g/dL Albumin (3.5-5.0) g/dL Urine Color Colorless Urine Appearance Clear (Clear) Urine pH 8.0 (5.0-8.0) Ur Specific [place] 1.012 (1.001-1.035) Urine Protein Negative (Negative) Urine Glucose (UA) Negative (Negative) Urine Ketones Negative (Negative) Urine Blood Negative (Negative) Urine Nitrite Negative (Negative) Urine Bilirubin Negative (Negative) Urine Urobilinogen <2.0 (<2.0) mg/dL Ur Leukocyte Esterase Negative (Negative) Urine HCG, Qual Not Detected (Not Detectd) 04/30/23 Range/Units 16:31 WBC (3.8-10.6) k/uL RBC (3.80-5.40) m/uL Hgb (11.4-16.0) gm/dL Hct (34.0-46.0) % MCV (80.0-100.0) fL MCH (25.0-35.0) pg MCHC (31.0-37.0) g/dL RDW (11.5-15.5) % Plt Count (150-450) k/uL MPV Neutrophils % % Lymphocytes % % Monocytes % % Eosinophils % % Basophils % % Neutrophils # (1.3-7.7) k/uL Lymphocytes # (1.0-4.8) k/uL Monocytes # (0-1.0) k/uL Eosinophils # (0-0.7) k/uL Basophils # (0-0.2) k/uL Sodium 138 (137-145) mmol/L Potassium 4.0 (3.5-5.1) mmol/L Chloride 106 (98-107) mmol/L Carbon Dioxide 22 (22-30) mmol/L Anion Gap 10 mmol/L BUN 19 H (7-17) mg/dL Creatinine 0.71 (0.52-1.04) mg/dL Est GFR (CKD-EPI)AfAm >90 (>60 ml/min/1.73 sqM) Est GFR (CKD-EPI)NonAf >90 (>60 ml/min/1.73 sqM) Glucose 103 H (74-99) mg/dL Calcium 9.1 (8.4-10.2) mg/dL Total Bilirubin 0.6 (0.2-1.3) mg/dL AST 27 (14-36) U/L ALT 26 (4-34) U/L Alkaline Phosphatase 140 H (38-126) U/L Total Protein 6.8 (6.3-8.2) g/dL Albumin 4.1 (3.5-5.0) g/dL Urine Color Urine Appearance (Clear) Urine pH (5.0-8.0) Ur Specific [place] (1.001-1.035) Urine Protein (Negative) Urine Glucose (UA) (Negative) Urine Ketones (Negative) Urine Blood (Negative) Urine Nitrite (Negative) Urine Bilirubin (Negative) Urine Urobilinogen (<2.0) mg/dL Ur Leukocyte Esterase (Negative) Urine HCG, Qual (Not Detectd) Disposition Clinical Impression: Vertigo Disposition: HOME SELF-CARE Condition: Good Instructions (If sedation given, give patient instructions): Vertigo (ED) Additional Instructions: Please return to the Emergency Department if symptoms worsen or any other concerns. Please follow up with ENT. Prescriptions: Meclizine [Antivert] 12.5 mg PO Q6H PRN #30 tablet PRN Reason: Vertigo Is patient prescribed a controlled substance at d/c from ED?: No Referrals: Kenroy Yi MD [Primary Care Provider] - 1-2 days Eduardo Monteiro DO [Doctor of Osteopathic Medicine] - 1-2 days Time of Disposition: 19:39
[2023-04-30 16:39] LABS: Basophils % (A) 0 %; Eosinophils # (A) 0.1 k/uL (0-0.7); Eosinophils % (A) 2 %; HCT 44.6 % (34.0-46.0); HGB 15.5 gm/dL (11.4-16.0); Lymphocytes # (A) 1.1 k/uL (1.0-4.8); Lymphocytes % (A) 17 %; MCH 29.8 pg (25.0-35.0); MCHC 34.7 g/dL (31.0-37.0); MCV 85.8 fL (80.0-100.0); Mean Platelet Volume 7.8; Monocytes # (A) 0.2 k/uL (0-1.0); Monocytes % (A) 4 %; Neutrophils # (A) 4.6 k/uL (1.3-7.7); Neutrophils % (A) 74 %; Platelet Count 213 k/uL (150-450); WBC 6.2 k/uL (3.8-10.6)
[2023-04-30 16:55] LABS: ALT 26 U/L (4-34); AST 27 U/L (14-36); African American GFR (CKD) >90 (>60 ml/min/1.73 sqM); Albumin 4.1 g/dL (3.5-5.0); Alkaline Phosphatase 140 U/L (38-126); Anion Gap 10 mmol/L; Blood Urea Nitrogen 19 mg/dL (7-17); Calcium 9.1 mg/dL (8.4-10.2); Carbon Dioxide 22 mmol/L (22-30); Chloride 106 mmol/L (98-107); Glucose 103 mg/dL (74-99); Non-African American GFR(CKD) >90 (>60 ml/min/1.73 sqM); Sodium 138 mmol/L (137-145); Total Bilirubin 0.6 mg/dL (0.2-1.3); Total Protein 6.8 g/dL (6.3-8.2)
[2023-04-30 18:24] LABS: Appearance,Urine Clear (Clear); Bilirubin,Urine Negative (Negative); Blood,Urine Negative (Negative); Color,Urine Colorless; Glucose,Urine (UA) Negative (Negative); Ketones,Urine Negative (Negative); Leukocyte Esterase,Urine Negative (Negative); Nitrite,Urine Negative (Negative); Protein,Urine Negative (Negative); Specific Gravity,Urine 1.012 (1.001-1.035); Urobilinogen,Urine <2.0 mg/dL (<2.0)
[2023-04-30] MEDS ORDERED: SCOPOLAMINE 1 MG/72 HR PATCH TRANSDERM STA (19:18)
--- NOTE | 2023-04-30 19:27 | CT ---
EXAMINATION TYPE: CT brain wo con DATE OF EXAM: 04/30/2023 COMPARISON: 11/13/2021 HISTORY: dizziness, vertigo CT DLP: 1134 mGycm. Automated Exposure Control for Dose Reduction was Utilized. TECHNIQUE: CT scan of the head is performed without contrast. FINDINGS: There is no acute intracranial hemorrhage, mass effect, or midline shift identified. The ventricles a nd sulci are within normal limits in size. The globes are intact and the visualized sinuses are varghese r. IMPRESSION: No acute intracranial hemorrhage, mass effect, or midline shift is seen.
[2023-04-30] MEDS ORDERED: ONDANSETRON 4 MG ODT STARTER PACK 2 TAB BTL PO STA (19:37)
[2023-04-30 20:00] VITALS: BP 115/90; PULSE 87; RESP 19; TEMP 98.7
== END 2023-04-30 19:58 | disposition home or self-care (01) ==
LOC: EC 15:39
DX: R42 Dizziness and giddiness (principal); R11.2 Nausea with vomiting, unspecified; E07.9 Disorder of thyroid, unspecified; F32.A Depression, unspecified; F41.9 Anxiety disorder, unspecified; Z79.890 Hormone replacement therapy; Z79.899 Other long term (current) drug therapy; Z88.2 Allergy status to sulfonamides; Z91.018 Allergy to other foods
CPT/HCPCS: 36415; 80053; 85025; 81003; 81025; 70450; 99285; 96374; 96361; J2405; S0119

== ENCOUNTER → 2023-11-17 | Outpatient (CLI) | payer OTHER ==
--- NOTE | 2023-11-17 08:34 | MM ---
Reason for Exam: Clinical finding. Risk Values: Sabrina 5 year model risk: 0.8%. NCI Lifetime model risk: 11.9%. Tissue Density: The breasts are heterogeneously dense, which may obscure small masses. Findings: Analyzed By CAD. No mass or distortion present. No suspicious microcalcifications evident. Managed clinically with regards to right-sided breast pain. Overall Assessment: Negative, BI-RAD 1 Management: Screening Mammogram of both breasts in 1 year. . Results were given to the patient verbally at the time of exam. Patient should continue monthly self-breast exams. A clinical breast exam by your physician is recommended on an annual basis. This exam should not preclude additional follow-up of suspicious palpable abnormalities. Note on Sabrina scores and lifetime risk: 1. A Sabrina score greater than 3% is considered moderate risk. If this is the case, consider specialist referral to assess eligibility for a risk reducing agent. 2. If overall lifetime risk for the development of breast cancer is 20% or higher, the patient may qualify for future screening with alternating mammogram and breast MRI. Electronically signed and approved by: Jeremias Pitts M.D. Radiologis
== END | disposition home or self-care (01) ==
LOC: RADMAMWWP 07:56
PROVIDERS: ATTEND Family Medicine
DX: R92.333 Mammographic heterogeneous density, bilateral breasts (principal); N64.4 Mastodynia
CPT/HCPCS: 77062; 77066

== ENCOUNTER → 2025-01-05 | Outpatient (CLI) | payer OTHER ==
--- NOTE | 2025-01-05 09:04 | CT ---
EXAMINATION TYPE: CT brain wo/w con DATE OF EXAM: 01/05/2025 7:56 AM COMPARISON: None. CLINICAL INDICATION: Female, 44 years old with history of G43.709 CHRONIC MIGRAINE W/O AURA, NOT INTR ACTABLE, CHRONIC MIGRAINE W/O AURA, NOT INTRACTABLE TECHNIQUE: CT of the brain is performed utilizing 3 mm thick sections through the posterior fossa and 3 mm thick sections through the remaining calvarium. Study is performed within 24 hours of arrival to the hospital. Contrast used:100ml mL of Isovue 300 without and with IV Contrast, (none if empty) CT DLP: 2289.40 mGycm, Automated exposure control for dose reduction was used. FINDINGS: No abnormal hyperdensity is present to suggest an acute intracranial hemorrhage. No mass lesion is evident. No acute infarcts are evident. Ventricles and sulci are appropriate for the patient age. Paranasal sinuses and mastoid air cells within the [id number] are clear. Following contrast, no abnormal enhancement is evident IMPRESSION: 1. No acute intracranial process. Follow up MRI can be performed as clinically indicated. [facility], , 01/05/2025 9:02 AM
== END | disposition home or self-care (01) ==
LOC: RADCTMAIN 07:02
PROVIDERS: ATTEND Family Medicine
DX: G43.709 Chronic migraine without aura, not intractable, without status migrainosus (principal)
CPT/HCPCS: 70470; Q9967

== ENCOUNTER 2025-01-12 22:08 | Emergency (ER) | payer OTHER ==
--- NOTE | 2025-01-12 22:33 | ED ---
Dizziness HPI - General Source: patient, EMS Mode of arrival: EMS Limitations: no limitations <Li Balderas - Last Filed: 01/12/25 22:30> - General Source: patient, EMS Mode of arrival: EMS Limitations: no limitations - History of Present Illness MD Complaint: dizziness, near syncope <Kaya Storm - Last Filed: 01/13/25 04:32> - General Chief Complaint: Dizziness Stated Complaint: syncope Time Seen by Provider: 01/12/25 22:30 - History of Present Illness Initial Comments: 44-year-old female presenting with chief complaint of dizziness. Patient report s that she was at the store when she had a dizzy episode. States that she has gotten these multiple times in the past. States that she will feel overheated and feel foods start to fall over. However she reports that she is still conscious throughout the episode. She denies any chest pain or difficulty breathing. She feels well at this time. (Li Balderas) This is a 44-year-old female who presents to the emergency department for dizziness and a near syncopal episode. States that since she was a teenager she would experience bouts of dizziness and they could never determine why. She then started to improve, however over the last several weeks and months this has been a rather recurrent issue. States that she felt overheated when she was checking out at [facility] this evening and felt like she started to shake and her eyes closed. However, she could still hear everything that was going on around her despite appearing as if she lost consciousness. While she denies any chest pain or shortness of breath at this time, states that she has been dealing with her breathing giving her issues over the last couple of months. She started using an inhaler at night and states that she feels like she cannot take a full deep breath and then goes into a coughing fit. She did have a CT scan of her brain done here several days ago as a result of her symptoms that was ordered by her PCP. States that they are also discussing a neurology referral. (Kaya Storm) - Related Data Home Medications Medication Instructions Recorded Confirmed Escitalopram Oxalate [Lexapro] 20 mg PO DAILY 06/30/21 04/30/23 Magnesium 200 mg PO DAILY 06/30/21 04/30/23 Montelukast [Singulair] 10 mg PO DAILY 06/30/21 04/30/23 Thyroid,Pork [Authorization Nurse Thyroid] 90 mg PO DAILY 06/30/21 04/30/23 buPROPion HCL [Wellbutrin XL] 150 mg PO DAILY 04/30/23 04/30/23 Previous Rx's Medication Instructions Recorded Meclizine [Antivert] 12.5 mg PO Q6H PRN #30 tablet 04/30/23 Allergies Allergy/AdvReac Type Severity Reaction Status Date / Time chicken derived Allergy Anaphylaxis Verified 01/12/25 22:15 aripiprazole [From Abilify] AdvReac Confusion Verified 01/12/25 22:15 baclofen AdvReac STOMACH Verified 01/12/25 22:15 PAIN gabapentin AdvReac Rapid Verified 01/12/25 22:15 Heart Rate zonisamide [From Zonegran] AdvReac Confusion Verified 01/12/25 22:15 Review of Systems ROS Other: All systems not noted in ROS Statement are negative. <Li Balderas - Last Filed: 01/12/25 22:30> ROS Other: All systems not noted in ROS Statement are negative. <Kaya Storm - Last Filed: 01/13/25 04:32> ROS Statement: Those systems with pertinent positive or pertinent negative responses have been documented in the HPI. Past Medical History Past Medical History: Fibromyalgia, GERD/Reflux, Hearing Disorder / Deafness, Thyroid Disorder Additional Past Medical History / Comment(s): knee pain, MIGRAINES, back pain, hypotension, ANVIK R/T NERVE UNFORMED BABY History of Any Multi-Drug Resistant Organisms: None Reported Past Surgical History: Hysterectomy, Orthopedic Surgery, Tubal Ligation Additional Past Surgical History / Comment(s): LT ELBOW POPPED BACK INTO PLACE 2008 POST DISLOCATION, Past Anesthesia/Blood Transfusion Reactions: Motion Sickness Past Psychological History: Anxiety, Depression Smoking Status: Never smoker Past Alcohol Use History: None Reported Past Drug Use History: None Reported - Past Family History Mother History Unknown: Yes Additional Family Medical History / Comment(s): NOT COMPLETELY SURE OF FAMILY HX. NO CONTACT WITH BIOLOGICAL FAMILY IN MANY YEARS <Li Balderas - Last Filed: 01/12/25 22:30> General Exam Limitations: no limitations <Li Balderas - Last Filed: 01/12/25 22:30> Limitations: no limitations General appearance: alert, in no apparent distress Head exam: Present: atraumatic, normocephalic, normal inspection Eye exam: Present: normal appearance, PERRL, EOMI. Absent: scleral icterus, conjunctival injection, periorbital swelling Respiratory exam: Present: normal lung sounds bilaterally. Absent: respiratory distress, wheezes, rales, rhonchi, stridor Cardiovascular Exam: Present: regular rate, normal rhythm Neurological exam: Present: alert, oriented X3, CN II-XII intact Psychiatric exam: Present: normal affect, normal mood Skin exam: Present: warm, dry, intact, normal color. Absent: rash <Kaya Storm - Last Filed: 01/13/25 04:32> - General Exam Comments Initial Comments: Visual Physical Exam Vital signs reviewed General: Well-appearing, nontoxic, no acute distress. Head: Normocephalic, atraumatic Eyes: PERRLA, EOMI ENT: Airway patent Chest: Nonlabored breathing Skin: No visual rash, normal skin tone Neuro: Alert and oriented 3 Musculoskeletal: No gross abnormalities (Li Balderas) Course Vital Signs 01/12/25 22:09 Temperature 98.1 F Pulse Rate 72 Respiratory 18 Rate Blood Pressure 117/83 O2 Sat by Pulse 97 Oximetry Medical Decision Making <Li Balderas - Last Filed: 01/12/25 22:30> - Lab Data Result diagrams: 01/12/25 22:59 01/12/25 22:59 - Radiology Data Radiology results: report reviewed, image reviewed <Kaya Storm - Last Filed: 01/13/25 04:32> - Medical Decision Making I performed the quick note portion of this visit, electronically signed Li Balderas PA-C (Li Balderas) This is a 44 year old female who presents to the emergency department for dizziness. Was pt. sent in by a medical professional or institution? @ -No Did you speak to anyone other than the patient for history? @ -No Did you review nursing and triage notes? @ -Yes, and I agree, it is accurate with regards to the patient's symptoms. Were old charts reviewed? @ -CT scan of the brain from 01/05/2025 revealing no acute intracranial process. Differential Diagnosis? @ -Differential Dizziness: Benign paroxysmal positional Vertigo, Meniere's disease, otitis media, acoustic neuroma, vertebrobasilar insufficiency, cerebellar stroke, encephalitis, hypovolemic, arrhythmia, coronary artery syndrome, anemia, this is not meant to be an all-inclusive list EKG interpreted by me (3pts min.)? @ -EKG interpreted by me demonstrating the following: Sinus rhythm. Ventricular rate 84 bpm, MS interval 144 ms, QRS duration 83 ms, QTc 401 ms X-rays interpreted by me (1pt min.)? @ -Not obtained CT interpreted by me (1pt min.)? @ -CTA of the chest obtained. My interpretation identifies no evidence of a pulmonary embolus. U/S interpreted by me (1pt. min.)? @ -Not obtained What testing was considered but not performed? (CT, X-rays, U/S, labs)? Why? @ -None What meds were considered but not given? Why? @ -None Did you discuss the management of the patient with other professionals? @ -No Did you reconcile home meds? @ -No Was smoking cessation discussed for >3mins.? @ -No Was critical care preformed (if so, how long)? @ -No Were there social determinants of health that impacted care today? How? (Homelessness, low income, unemployed, alcoholism, drug addiction, transportation, low edu. Level, literacy, decrease access to med. care, correction, rehab)? @ -No Was there de-escalation of care discussed even if they declined? (Discuss DNR or withdrawal of care, Hospice)? @ -No What co-morbidities impacted this encounter? (DM, HTN, Smoking, COPD, CAD, Cancer, CVA, Hep., AIDS, mental health diagnosis, sleep apnea, morbid obesity)? @ -Fibromyalgia, thyroid disorder Was patient admitted / discharged? @ -Discharged. Lab work demonstrates an initial troponin of 0.020. D-dimer elevated at 1.32. TSH was low at 0.028, however free T4 is within normal limits at 1.06. Advised the patient that while her troponin is considered negative, it is not undetectable, and I thus advised a repeat troponin at the 3-hour santiago, which she was in agreement with. Repeat troponin obtained and found to be undetectable at that time. CTA of the chest obtained revealing no evidence of a pulmonary embolus or other acute process. Given that this has been a rather recurrent issue for the patient over the last several years, she advised that she was comfortable being discharged home. Advised that she needs to have close follow-up with her PCP for reevaluation and discussion of additional testing for further investigation into this issue. Patient expresses understanding and was discharged home in stable condition. Case discussed with ED attending Dr. Mcgraw. Return precautions reviewed in depth, the patient is instructed to return to the emergency department with any new, worsening, or concerning symptoms. Patient verbalized understanding. Undiagnosed new problem with uncertain prognosis? @ -None Drug Therapy requiring intensive monitoring for toxicity (Heparin, Nitro, Insulin, Cardizem)? @ -None Were any procedures done? @ -None Diagnosis/symptom? @ -Dizziness, near syncope Acute, or Chronic, or Acute on Chronic? @ -Acute Uncomplicated (without systemic symptoms) or Complicated (systemic symptoms)? @ -Uncomplicated Side effects of treatment? @ -None Exacerbation, Progression, or Severe Exacerbation] @ -Not applicable Poses a threat to life or bodily function? @ -No (Kaya Storm) - Lab Data Lab Results 01/12/25 01/12/25 01/12/25 Range/Units 22:59 22:59 22:59 WBC 6.21 (4.50-10.00) 10*3/uL RBC 5.30 H (4.10-5.20) 10*6/uL Hgb 15.9 H (12.0-15.0) g/dL Hct 45.6 (37.2-46.3) % MCV 86.0 (80.0-97.0) fL MCH 30.0 (27.0-32.0) pg MCHC 34.9 (32.0-37.0) g/dL Plt Count 240 (140-440) 10*3/uL MPV 10.0 (9.5-12.2) fL Immature Gran % (Auto) 0.2 % Neutrophils % 56.4 % Lymphocytes % 32.9 % Monocytes % 7.7 % Eosinophils % 2.3 % Basophils % 0.5 % Immature Gran # 0.01 (0.00-0.04) 10*3/uL Neutrophils # 3.51 (1.80-7.70) 10*3/uL Lymphocytes # 2.04 (0.90-5.00) 10*3/uL Monocytes # 0.48 (0.20-1.00) 10*3/uL Eosinophils # 0.14 (0.04-0.35) 10*3/uL Basophils # 0.03 (0.00-0.10) 10*3/uL PT (10.0-12.5) sec INR (<1.2) APTT (22.0-30.0) sec D-Dimer (<0.60) mg/L FEU Sodium 137 (137-145) mmol/L Potassium (3.5-5.1) mmol/L Chloride 108 H (98-107) mmol/L Carbon Dioxide 20 L (22-30) mmol/L Anion Gap 9 mmol/L BUN 13 (7-17) mg/dL Creatinine 0.76 (0.52-1.04) mg/dL Est GFR (CKD-EPI)AfAm >90 (>60 ml/min/1.73 sqM) Est GFR (CKD-EPI)NonAf >90 (>60 ml/min/1.73 sqM) Glucose 91 (74-99) mg/dL Plasma Lactic Acid Clifford 1.2 (0.7-2.0) mmol/L Calcium 9.2 (8.4-10.2) mg/dL Total Bilirubin 2.6 H (0.2-1.3) mg/dL AST 84 H (14-36) U/L ALT 25 (4-34) U/L Alkaline Phosphatase 78 (38-126) U/L Troponin I (0.000-0.034) ng/mL Total Protein 9.1 H (6.3-8.2) g/dL Albumin 5.6 H (3.5-5.0) g/dL TSH (0.465-4.680) mIU/L Free T4 (0.78-2.19) ng/dL 01/12/25 01/12/25 01/13/25 Range/Units 22:59 22:59 01:20 WBC (4.50-10.00) 10*3/uL RBC (4.10-5.20) 10*6/uL Hgb (12.0-15.0) g/dL Hct (37.2-46.3) % MCV (80.0-97.0) fL MCH (27.0-32.0) pg MCHC (32.0-37.0) g/dL Plt Count (140-440) 10*3/uL MPV (9.5-12.2) fL Immature Gran % (Auto) % Neutrophils % % Lymphocytes % % Monocytes % % Eosinophils % % Basophils % % Immature Gran # (0.00-0.04) 10*3/uL Neutrophils # (1.80-7.70) 10*3/uL Lymphocytes # (0.90-5.00) 10*3/uL Monocytes # (0.20-1.00) 10*3/uL Eosinophils # (0.04-0.35) 10*3/uL Basophils # (0.00-0.10) 10*3/uL PT 11.2 (10.0-12.5) sec INR 1.0 (<1.2) APTT 22.5 (22.0-30.0) sec D-Dimer 1.32 H (<0.60) mg/L FEU Sodium (137-145) mmol/L Potassium (3.5-5.1) mmol/L Chloride (98-107) mmol/L Carbon Dioxide (22-30) mmol/L Anion Gap mmol/L BUN (7-17) mg/dL Creatinine (0.52-1.04) mg/dL Est GFR (CKD-EPI)AfAm (>60 ml/min/1.73 sqM) Est GFR (CKD-EPI)NonAf (>60 ml/min/1.73 sqM) Glucose (74-99) mg/dL Plasma Lactic Acid Clifford (0.7-2.0) mmol/L Calcium (8.4-10.2) mg/dL Total Bilirubin (0.2-1.3) mg/dL AST (14-36) U/L ALT (4-34) U/L Alkaline Phosphatase (38-126) U/L Troponin I 0.020 (0.000-0.034) ng/mL Total Protein (6.3-8.2) g/dL Albumin (3.5-5.0) g/dL TSH 0.028 L (0.465-4.680) mIU/L Free T4 1.06 (0.78-2.19) ng/dL 01/13/25 Range/Units 02:11 WBC (4.50-10.00) 10*3/uL RBC (4.10-5.20) 10*6/uL Hgb (12.0-15.0) g/dL Hct (37.2-46.3) % MCV (80.0-97.0) fL MCH (27.0-32.0) pg MCHC (32.0-37.0) g/dL Plt Count (140-440) 10*3/uL MPV (9.5-12.2) fL Immature Gran % (Auto) % Neutrophils % % Lymphocytes % % Monocytes % % Eosinophils % % Basophils % % Immature Gran # (0.00-0.04) 10*3/uL Neutrophils # (1.80-7.70) 10*3/uL Lymphocytes # (0.90-5.00) 10*3/uL Monocytes # (0.20-1.00) 10*3/uL Eosinophils # (0.04-0.35) 10*3/uL Basophils # (0.00-0.10) 10*3/uL PT (10.0-12.5) sec INR (<1.2) APTT (22.0-30.0) sec D-Dimer (<0.60) mg/L FEU Sodium (137-145) mmol/L Potassium (3.5-5.1) mmol/L Chloride (98-107) mmol/L Carbon Dioxide (22-30) mmol/L Anion Gap mmol/L BUN (7-17) mg/dL Creatinine (0.52-1.04) mg/dL Est GFR (CKD-EPI)AfAm (>60 ml/min/1.73 sqM) Est GFR (CKD-EPI)NonAf (>60 ml/min/1.73 sqM) Glucose (74-99) mg/dL Plasma Lactic Acid Clifford (0.7-2.0) mmol/L Calcium (8.4-10.2) mg/dL Total Bilirubin (0.2-1.3) mg/dL AST (14-36) U/L ALT (4-34) U/L Alkaline Phosphatase (38-126) U/L Troponin I <0.012 (0.000-0.034) ng/mL Total Protein (6.3-8.2) g/dL Albumin (3.5-5.0) g/dL TSH (0.465-4.680) mIU/L Free T4 (0.78-2.19) ng/dL Disposition <Li Balderas - Last Filed: 01/12/25 22:30> Is patient prescribed a controlled substance at d/c from ED?: No Time of Disposition: 04:31 <Kaya Storm - Last Filed: 01/13/25 04:32> Clinical Impression: Dizziness, Near syncope Disposition: HOME SELF-CARE Instructions (If sedation given, give patient instructions): Near Syncope (ED), Dizziness (ED) Additional Instructions: Return to the emergency department with any new, worsening, or concerning symptoms. Follow up with your primary care provider in 1-2 days. Referrals: Eyal Chaney MD [Primary Care Provider] - 1-2 days
[2025-01-12 23:30] LABS: Basophils # (A) 0.03 10*3/uL (0.00-0.10); Basophils % (A) 0.5 %; Eosinophils # (A) 0.14 10*3/uL (0.04-0.35); Eosinophils % (A) 2.3 %; HCT 45.6 % (37.2-46.3); HGB 15.9 g/dL (12.0-15.0); Lymphocytes # (A) 2.04 10*3/uL (0.90-5.00); Lymphocytes % (A) 32.9 %; MCHC 34.9 g/dL (32.0-37.0); Monocytes # (A) 0.48 10*3/uL (0.20-1.00); Monocytes % (A) 7.7 %; Neutrophils # (A) 3.51 10*3/uL (1.80-7.70); Neutrophils % (A) 56.4 %; Platelet Count 240 10*3/uL (140-440); RDW 13.2 % (11.5-14.5); WBC 6.21 10*3/uL (4.50-10.00)
[2025-01-13] LABS: ALT 25 U/L (4-34); AST 84 U/L (14-36); African American GFR (CKD) >90 (>60 ml/min/1.73 sqM); Albumin 5.6 g/dL (3.5-5.0); Alkaline Phosphatase 78 U/L (38-126); Anion Gap 9 mmol/L; Blood Urea Nitrogen 13 mg/dL (7-17); Calcium 9.2 mg/dL (8.4-10.2); Carbon Dioxide 20 mmol/L (22-30); Chloride 108 mmol/L (98-107); Glucose 91 mg/dL (74-99); Non-African American GFR(CKD) >90 (>60 ml/min/1.73 sqM); Sodium 137 mmol/L (137-145); Total Bilirubin 2.6 mg/dL (0.2-1.3); Total Protein 9.1 g/dL (6.3-8.2)
[2025-01-13] MEDS: SODIUM CHLORIDE 0.9% 1,000 ML IV ONE (01:02)
[2025-01-13 01:54] LABS: Partial Thromboplastin Time 22.5 sec (22.0-30.0); Prothrombin Time 11.2 sec (10.0-12.5)
[2025-01-13 02:42] LABS: T4, Free (Free Thyroxine) 1.06 ng/dL (0.78-2.19)
--- NOTE | 2025-01-13 04:27 | CT ---
EXAM: CT Angiography Chest With Intravenous Contrast CLINICAL HISTORY: ITS.REASON CT Reason: EDILMA, syncope, elevated d-dimer TECHNIQUE: Axial computed tomographic angiography images of the chest with intravenous contrast. CTDI is 20.5 mGy and DLP is 382 mGy-cm. This CT exam was performed using one or more of the following dose reduction techniques: automated exposure control, adjustment of the mA and/or kV according to patient size, and/or use of iterative reconstruction technique. MIP reconstructed images were created and reviewed. COMPARISON: No relevant prior studies available. FINDINGS: Pulmonary arteries: No pulmonary embolism detected. Aorta: No acute findings. No thoracic aortic aneurysm. Lungs: Unremarkable. No mass. No consolidation. Pleural space: Unremarkable. No significant effusion. No pneumothorax. Heart: Unremarkable. No cardiomegaly. No significant pericardial effusion. No evidence of RV dysfunction. Mediastinum: Moderate hiatal hernia. Bones/joints: No acute fracture. No dislocation. Soft tissues: Unremarkable. Lymph nodes: Unremarkable. No enlarged lymph nodes. Spleen: Small splenules. Kidneys and ureters: Simple right renal cyst. No follow-up of this simple cyst is necessary. IMPRESSION: 1. No pulmonary embolism detected. 2. Moderate hiatal hernia. 3. No other acute findings. 4. Incidental findings as described.
[2025-01-13 04:45] VITALS: BP 105/82; PULSE 65; RESP 17; TEMP 97.8
== END 2025-01-13 04:46 | disposition home or self-care (01) ==
LOC: EC 22:08
DX: R42 Dizziness and giddiness (principal); R55 Syncope and collapse; M79.7 Fibromyalgia; E07.9 Disorder of thyroid, unspecified; Z88.2 Allergy status to sulfonamides; Z88.8 Allergy status to other drugs, medicaments and biological substances; Z91.018 Allergy to other foods
CPT/HCPCS: 99284; 96360; 36415 ×2; 85379; 84439; 80053; 84443; 83605; 84484 ×2; 85025; 85610; 85730; 71275; Q9967

== ENCOUNTER 2025-01-19 09:19 | Emergency (ER) | payer OTHER ==
[2025-01-19 10:15] LABS: Basophils # (A) 0.03 10*3/uL (0.00-0.10); Basophils % (A) 0.5 %; Eosinophils # (A) 0.22 10*3/uL (0.04-0.35); HCT 41.5 % (37.2-46.3); HGB 14.4 g/dL (12.0-15.0); Lymphocytes # (A) 1.56 10*3/uL (0.90-5.00); Lymphocytes % (A) 28.1 %; MCH 30.2 pg (27.0-32.0); MCHC 34.7 g/dL (32.0-37.0); Neutrophils # (A) 3.24 10*3/uL (1.80-7.70); Neutrophils % (A) 58.2 %; Platelet Count 214 10*3/uL (140-440); RBC 4.77 10*6/uL (4.10-5.20); RDW 13.2 % (11.5-14.5); WBC 5.56 10*3/uL (4.50-10.00)
[2025-01-19 10:28] LABS: ALT 24 U/L (4-34); African American GFR (CKD) >90 (>60 ml/min/1.73 sqM); Albumin 4.2 g/dL (3.5-5.0); Anion Gap 12 mmol/L; Blood Urea Nitrogen 10 mg/dL (7-17); Calcium 9.3 mg/dL (8.4-10.2); Carbon Dioxide 18 mmol/L (22-30); Chloride 109 mmol/L (98-107); Glucose 91 mg/dL (74-99); Magnesium 2.1 mg/dL (1.6-2.3); Non-African American GFR(CKD) >90 (>60 ml/min/1.73 sqM); Sodium 139 mmol/L (137-145); Total Bilirubin 0.6 mg/dL (0.2-1.3); Total Protein 7.1 g/dL (6.3-8.2)
[2025-01-19 10:43] LABS: AST 55 U/L (14-36); Alkaline Phosphatase 115 U/L (38-126)
--- NOTE | 2025-01-19 10:43 | ED ---
General Adult HPI - General Source: patient, EMS, RN notes reviewed Mode of arrival: EMS Limitations: no limitations <Zachariah Peña - Last Filed: 01/19/25 10:42> <Jluis Fajardo - Last Filed: 01/19/25 13:22> - General Chief complaint: Syncope Stated complaint: Syncope Time Seen by Provider: 01/19/25 09:20 - History of Present Illness Initial comments: Quick note 44-year-old female presents emergency department from PCPs office for near syncopal event. This has been happening daily. Patient had a recent ER v isit for similar complaints of syncope. She denies any current complaints chest pain shortness of breath no focal weakness patient blood pressure was initially hypotensive after syncopal episode but improved. (Zachariah Peña) Dictation was produced using [employer] dictation software. please excuse any grammatical, word or spelling errors. Chief Complaint: 44-year-old female presents to the emergency department for near syncope History of Present Illness: Patient is a 44-year-old female with history of syncope and fibromyalgia. Patient was seen in the ER 1 to 2 weeks ago for the same issue. She had a follow-up appointment at Dr. Chaney's office with her PCP for ER visit regarding syncope. Patient was to have follow-up with neurologist Dr. Sher. She had her appointment completed when all of a sudden she had another episode. EMS was called patient brought to the ER. Patient describes the episode as feeling locked in. She is aware of her surroundings however is unable to move. She does not have preceding palpitations or lightheadedness. States that last for several seconds. The ROS documented in this emergency department record has been reviewed and c onfirmed by me. Those systems with pertinent positive or negative responses have been documented in the HPI. All other systems are other negative and/or noncontributory. (Jluis Fajardo) - Related Data Home Medications Medication Instructions Recorded Confirmed Escitalopram Oxalate [Lexapro] 20 mg PO DAILY 06/30/21 04/30/23 Magnesium 200 mg PO DAILY 06/30/21 04/30/23 Montelukast [Singulair] 10 mg PO DAILY 06/30/21 04/30/23 Thyroid,Pork [Educational Psychologist Thyroid] 90 mg PO DAILY 06/30/21 04/30/23 buPROPion HCL [Wellbutrin XL] 150 mg PO DAILY 04/30/23 04/30/23 Previous Rx's Medication Instructions Recorded Meclizine [Antivert] 12.5 mg PO Q6H PRN #30 tablet 04/30/23 Allergies Allergy/AdvReac Type Severity Reaction Status Date / Time chicken derived Allergy Anaphylaxis Verified 01/19/25 09:26 aripiprazole [From Abilify] AdvReac Confusion Verified 01/19/25 09:26 baclofen AdvReac STOMACH Verified 01/19/25 09:26 PAIN gabapentin AdvReac Rapid Verified 01/19/25 09:26 Heart Rate zonisamide [From Zonegran] AdvReac Confusion Verified 01/19/25 09:26 Review of Systems ROS Other: All systems not noted in ROS Statement are negative. <Zachariah Peña - Last Filed: 01/19/25 10:42> ROS Other: All systems not noted in ROS Statement are negative. <Jluis Fajardo - Last Filed: 01/19/25 13:22> ROS Statement: Those systems with pertinent positive or pertinent negative responses have been documented in the HPI. Past Medical History Past Medical History: Fibromyalgia, GERD/Reflux, Hearing Disorder / Deafness, Thyroid Disorder Additional Past Medical History / Comment(s): knee pain, MIGRAINES, back pain, hypotension, [place] R/T NERVE UNFORMED BABY History of Any Multi-Drug Resistant Organisms: None Reported Past Surgical History: Hysterectomy, Orthopedic Surgery, Tubal Ligation Additional Past Surgical History / Comment(s): LT ELBOW POPPED BACK INTO PLACE 2008 POST DISLOCATION, Past Anesthesia/Blood Transfusion Reactions: Motion Sickness Past Psychological History: Anxiety, Depression Smoking Status: Never smoker Past Alcohol Use History: None Reported Past Drug Use History: None Reported - Past Family History Mother History Unknown: Yes Additional Family Medical History / Comment(s): NOT COMPLETELY SURE OF FAMILY HX. NO CONTACT WITH BIOLOGICAL FAMILY IN MANY YEARS <Zachariah Peña - Last Filed: 01/19/25 10:42> General Exam Limitations: no limitations <Zachariah Peña - Last Filed: 01/19/25 10:42> <Jluis Fajardo - Last Filed: 01/19/25 13:22> - General Exam Comments Initial Comments: Visual Physical Exam Vital signs reviewed General: Well-appearing, nontoxic, no acute distress. Head: Normocephalic, atraumatic Eyes: PERRLA, EOMI ENT: Airway patent Chest: Nonlabored breathing Skin: No visual rash, normal skin tone Neuro: Alert and oriented 3 Musculoskeletal: No gross abnormalities (Zachariah Peña) PHYSICAL EXAM: General Impression: Alert and oriented x3, not in acute distress HEENT: Normocephalic atraumatic, extra-ocular movements intact, pupils equal and reactive to light bilaterally, mucous membranes moist. Cardiovascular: Heart regular rate and rhythm Chest: Able to complete full sentences, no retractions, no tachypnea Abdomen: abdomen soft, non-tender, non-distended, no organomegaly Musculoskeletal: Pulses present and equal in all extremities, no peripheral edema Motor: no focal deficits noted Neurological: CN II-XII grossly intact, no focal motor or sensory deficits noted Skin: Intact with no visualized rashes Psych: Normal affect and mood (Jluis Fajardo) Course Vital Signs 01/19/25 01/19/25 01/19/25 09:26 11:20 12:48 Temperature 98.1 F Pulse Rate 81 78 62 Respiratory 18 17 16 Rate Blood Pressure 116/76 136/96 120/78 O2 Sat by Pulse 99 99 98 Oximetry EKG Findings - EKG Comments: EKG Findings:: My EKG interpretation: Ventricular rate 72, sinus rhythm, parable 175, QRS 87, QTc 4 9. No MN prolongation, no QTC prolongation, no ST or T-wave changes noted. Overall, this EKG is unremarkable <Jluis Fajardo - Last Filed: 01/19/25 13:22> Medical Decision Making - Lab Data Result diagrams: 01/19/25 10:07 <Zachariah Peña - Last Filed: 01/19/25 10:42> - Lab Data Result diagrams: 01/19/25 10:07 01/19/25 10:07 <Jluis Fajardo - Last Filed: 01/19/25 13:22> - Medical Decision Making I completed the quick note portion of this chart signed Zachariah Peña PA-C (Zachariah Peña) Was pt. sent in by a medical professional or institution ([facility], DIAL MOUNTER, urgent care, hospital, or group home...) When possible be specific @ -No Did you speak to anyone other than the patient for history (EMS, parent, family, police, friend...)? What history was obtained from this source @ -No Did you review nursing and triage notes (agree or disagree)? Why? @ -I reviewed and agree with nursing and triage notes Were old charts reviewed (outside hosp., previous admission, EMS record, old EKG, old radiological studies, urgent care reports/EKG's, group home records)? Report findings @ -No old charts were reviewed Differential Diagnosis (chest pain, altered mental status, abdominal pain women, abdominal pain men, vaginal bleeding, musculoskeletal, weakness, fever, dyspnea, syncope, headache, dizziness, GI bleed, back pain, seizure, CVA, palpatations, mental health)? @ -Differential Syncope: Valvular disease, hypertrophic cardiomyopathy, pulmonary embolism, tamponade, tachycardia, bradycardia, ME, hypovolemia, hemorrhage, dissection, anemia, intracranial hemorrhage, seizure, hypoglycemia, carbon monoxide poisoning, this is not meant to be an all-inclusive list. EKG interpreted by me (3pts min.). @ -See above X-rays interpreted by me (1pt min.). @ -Chest x-ray shows no acute processes CT interpreted by me (1pt min.). @ -None done U/S interpreted by me (1pt. min.). @ -None done What testing was considered but not performed or refused? (CT, X-rays, U/S, labs)? Why? @ -None What meds were considered but not given or refused? Why? @ -None Was smoking cessation discussed for >3mins.? @ -No Were there social determinants of health that impacted care today? How? (Homelessness, low income, unemployed, alcoholism, drug addiction, transportation, low edu. Level, literacy, decrease access to med. care, senior living, rehab)? @ -No Was there de-escalation of care discussed even if they declined (Discuss DNR or withdrawal of care, Hospice)? DNR status @ -No What co-morbidities impacted this encounter? (DM, HTN, Smoking, COPD, CAD, Cancer, CVA, ARF, Chemo, Hep., AIDS, mental health diagnosis, sleep apnea, morbid obesity)? @ -Syncope Was patient admitted / discharged? Hospital course, mention meds given and route, prescriptions, significant lab abnormalities, going to OR and other pertinent info. @ -44-year-old female presents emergency department presyncope. Patient has no high risk features. No history of cardiac issues. Vital signs stable. Laboratory evaluation is unremarkable. Patient discharged told to follow-up with her neurologist as initially prescribed by primary care doctor Did you discuss the management of the patient with other professionals (professionals i.e. DrGretchen, PA, DIAL MOUNTER, lab, RT, psych nurse, manager social services, aniline press worker, teacher, commanding officer traffic division, shoe caser)? Give summary @ -No Was critical care preformed (if so, how long)? @ -No Undiagnosed new problem with uncertain prognosis? @ -No Drug Therapy requiring intensive monitoring for toxicity (Heparin, Nitro, Insulin, Cardizem)? @ -No Were any procedures done? @ -No Diagnosis/symptom? Acute, or Chronic, or Acute on Chronic? Uncomplicated (without systemic symptoms) or Complicated (systemic symptoms)? @ -Presyncope Side effects of treatment? @ -No Exacerbation, Progression, or Severe Exacerbation? @ -No Poses a threat to life or bodily function? How? (Chest pain, USA, ME, pneumonia, PE, COPD, DKA, ARF, appy, cholecystitis, CVA, Diverticulitis, Homicidal, Suicidal, threat to staff... and all critical care pts) @ -No (Jluis Fajardo) - Lab Data Lab Results 01/19/25 01/19/25 01/19/25 Range/Units 10:07 10:07 10:07 WBC 5.56 (4.50-10.00) 10*3/uL RBC 4.77 (4.10-5.20) 10*6/uL Hgb 14.4 (12.0-15.0) g/dL Hct 41.5 (37.2-46.3) % MCV 87.0 (80.0-97.0) fL MCH 30.2 (27.0-32.0) pg MCHC 34.7 (32.0-37.0) g/dL Plt Count 214 (140-440) 10*3/uL MPV 10.0 (9.5-12.2) fL Immature Gran % (Auto) 0.2 % Neutrophils % 58.2 % Lymphocytes % 28.1 % Monocytes % 9.0 % Eosinophils % 4.0 % Basophils % 0.5 % Immature Gran # 0.01 (0.00-0.04) 10*3/uL Neutrophils # 3.24 (1.80-7.70) 10*3/uL Lymphocytes # 1.56 (0.90-5.00) 10*3/uL Monocytes # 0.50 (0.20-1.00) 10*3/uL Eosinophils # 0.22 (0.04-0.35) 10*3/uL Basophils # 0.03 (0.00-0.10) 10*3/uL Sodium 139 (137-145) mmol/L Potassium 4.0 (3.5-5.1) mmol/L Chloride 109 H (98-107) mmol/L Carbon Dioxide 18 L (22-30) mmol/L Anion Gap 12 mmol/L BUN 10 (7-17) mg/dL Creatinine 0.74 (0.52-1.04) mg/dL Est GFR (CKD-EPI)AfAm >90 (>60 ml/min/1.73 sqM) Est GFR (CKD-EPI)NonAf >90 (>60 ml/min/1.73 sqM) Glucose 91 (74-99) mg/dL Calcium 9.3 (8.4-10.2) mg/dL Magnesium 2.1 (1.6-2.3) mg/dL Total Bilirubin 0.6 (0.2-1.3) mg/dL AST 55 H (14-36) U/L ALT 24 (4-34) U/L Alkaline Phosphatase 115 (38-126) U/L Troponin I <0.012 (0.000-0.034) ng/mL Total Protein 7.1 (6.3-8.2) g/dL Albumin 4.2 (3.5-5.0) g/dL Disposition <Zachariah Peña M - Last Filed: 01/19/25 10:42> Is patient prescribed a controlled substance at d/c from ED?: No Time of Disposition: 12:57 <Jluis Fajardo - Last Filed: 01/19/25 13:22> Clinical Impression: Pre-syncope Disposition: HOME SELF-CARE Condition: Fair Instructions (If sedation given, give patient instructions): Near Syncope (ED) Referrals: Eyal Chaney MD [Primary Care Provider] - 1-2 days
--- NOTE | 2025-01-19 11:33 | XR ---
EXAMINATION TYPE: XR chest 2V DATE OF EXAM: 01/19/2025 11:16 AM COMPARISON: 03/07/2017 CLINICAL INDICATION: Female, 44 years old with history of syncope, , TECHNIQUE: PA and lateral views FINDINGS: The cardiomediastinal silhouette, aorta, and pulmonary vasculature are within normal limits. Lungs an d pleural spaces are clear. IMPRESSION: No acute cardiopulmonary process. [facility], , 01/19/2025 11:30 AM
[2025-01-19 12:50] VITALS: RESP 16
[2025-01-19] MEDS: SODIUM CHLORIDE 0.9% 1,000 ML IV STA (13:12)
[2025-01-19 14:24] VITALS: BP 107/73; PULSE 60; TEMP 98.3
== END 2025-01-19 14:24 | disposition home or self-care (01) ==
LOC: EC 09:19
DX: R55 Syncope and collapse (principal); Z88.2 Allergy status to sulfonamides; Z88.8 Allergy status to other drugs, medicaments and biological substances
CPT/HCPCS: 36415; 71046; 80053; 83735; 84484; 85025; 93005; 96360; 99284